=== PATIENT | male | born 1955 | race Caucasian/White ===

== ENCOUNTER → 2023-05-09 07:25 | Outpatient (REF) | payer MEDICARE, BC, SELFPAY | LOC: HWRAD 07:25 | PROVIDERS: ATTENDING PHYSICIAN Physician Assistant | DX: Z87.891 Personal history of nicotine dependence (principal) | CPT/HCPCS: 71271 ==

== ENCOUNTER 2024-05-05 22:05 | Inpatient (IN) | payer MEDICARE, BC, SELFPAY ==
[2024-05-05] VITALS (14 sets, daily range): BP systolic 108–146; BP diastolic 69–92; BMI 37.9
--- NOTE | 2024-05-05 15:44 | ED.GENMED ---
ED Provider Triage
<Keely Mcgee NEWS SPECIALIST - Last Filed: 05/05/24 15:49>
-
Patient seen by provider in Triage?: Seen in Triage
Attestation: A medical screening examination has been initiated by a qualified medical provider. Based on the assessment performed at this time, it has been determined that an emergent medical condition may exist and the patient has been informed
that further medical evaluation and possible additional diagnostic testing may be needed.
HPI: 69-year-old male with history of BPH, on Flomax and finasteride, has been feeling nauseous, short of breath for about a week and a half, he thought he had the flu or COVID, went to his PCP today and he had an EKG showing new onset of atrial
fibs. Feels 'sore' in his chest that is worse when he lays down for the past week
Heart rate 80-120 in triage. Stable
GENERAL: Alert , in no apparent distress
EYE: No visual abnormalities.
NECK: Trachea midline
ENT: No visible abnormalities.
LUNGS: No acute respiratory distress
NEUROLOGICAL: Alert and oriented
SKIN: Skin intact. No visible changes.
MUSCULOSKELETAL: Moving extremities normally
PSYCH: Normal and appropriate interaction.
This is a medical evaluation conducted in person to initiate diagnostic evaluation and provide initial therapeutics. Please see further documentation by the treating clinician.
History of Present Illness
<Keely Mcgee NEWS SPECIALIST - Last Filed: 05/05/24 15:49>
General
Chief Complaint: Heart Rate Problem
Time Seen by Provider: 05/05/24 16:35
<Allie Simons PA-C - Last Filed: 05/05/24 22:23>
General
Source: patient
Exam Limitations: none
Nursing documentation reviewed up to this point in time: agreed with
History of Present Illness
History of Present Illness:
69 y/o M with h/o BPH,
1.5 weeks of generalized fatigue, nauesa, chest discomfort and developed sob
feels some pain with breathign
no fever/chills
suspected it was the flu
ewn tto pcp today and sent in for eval, new onset afib
no history of cardiac disease
former smoker
no vomiting
no abdominal pain
some mild swellign in the legs
Past History
<Keely Mcgee, NEWS SPECIALIST - Last Filed: 05/05/24 15:49>
Past History
ED Past Medical History: None
ED Past Surgical History: None
Review of Systems
<Allie Simons PA-C - Last Filed: 05/05/24 22:23>
Review of Systems
Allergies reviewed?: Yes
All Other Systems: Not applicable
Phy Exam
<Allie Simons PA-C - Last Filed: 05/05/24 22:23>
Physical Exam
Physical Exam:
GENERAL: Alert , tachypneic
EYE: pupils equal and reactive
NECK: Supple
ENT: o/p clr, mmm.
CARDIAC: A-fib with RVR, irregularly irregular, mild edema in his legs
LUNGS: Diminished, mildly tachypneic, dyspneic on conversation, no wheezes
ABDOMEN: Soft, obese without focal tenderness, no r/g, no cvat, normal bowel sounds
NEUROLOGICAL: Alert and oriented, no focal neuro deficits
SKIN: Warm and dry, skin intact.
MUSCULOSKELETAL: Mild edema, well perfused. neg feliz's sign
PSYCH: Normal and appropriate interaction.
Course
<Keely Mcgee, NEWS SPECIALIST - Last Filed: 05/05/24 15:49>
Orders/Labs/Results
Orders:
Orders
05/05/24 15:38
EKG [Electrocardiogram (*1)] Urgent
Reason for Study: Chest Pain
EKG- Treatment ONCE
05/05/24 15:47
CR Chest - 2 Views Urgent
Comment:
Reason For Exam: Shortness of breath, new onset A-fib
05/05/24 16:04
Complete Blood Count/With Diff Urgent
Comprehensive Metabolic Panel Urgent
Lipase Urgent
Comment: ADD ON
NT-proBNP Urgent
Comment: ADD ON
TSH Urgent
Troponin I Urgent
05/05/24 16:41
Add On- LAB Urgent
Tests Added?: bnp
05/05/24 17:04
CT Chest PE Study Urgent
Comment:
Reason For Exam: new onset afib, sob
05/05/24 17:38
Azithromycin 500 mg/250 ml [Zithromax Infusion] 500 mg in 250 ml IV NOW
CefTRIAXone [Rocephin] 2,000 mg IV NOW STA
05/05/24 18:25
Lactic Acid Urgent
05/05/24 19:22
Ondansetron Injectable [Zofran] 4 mg .ROUTE .STK-MED ONE
05/05/24 19:25
Ondansetron Injectable [Zofran] 4 mg IV NOW STA
05/05/24 19:34
Furosemide [Lasix] 40 mg IV ONCE ONE
05/05/24 19:45
Diltiazem 125 mg/125 ml Nss [Cardizem] 125 mg in 125 ml IV PER PROTOCOL
Initial dose in mg/hr, then titrate:: 5
Titrate to keep:: Heart rate 80-100 bpm
Titrate by mg/hr:: 5 mg/hr
Frequency of titrations (minutes):: 15
Maximum dose in mg/hr:: 15
05/05/24 20:53
COVID-19 Antigen Urgent
Source: Nasal Swab
Influenza A+B Rapid Molecular Urgent
ELVIN Source: Nasal Swab
Specimen Description:
05/05/24 21:38
Admit/Transfer Patient As Directed
Co-Sign Provider:
Level of Care: Inpatient admission
Assign to:: IMU- Intermediate Care
Physician / Group: charu hurley
Diagnosis: new onnset charles, intract nausea leuko concern pancreatitis
Reason for Hospitalization: new onnset charles, intract nausea leuko concern pancreatitis
Expected length of stay greater than two midnights?: Yes
ELOS- Estimated Length of Stay in days: 4
I certify the patient meets the requirements for IP care: Yes
Code Status As Directed
Resuscitation Status: Full Code
05/05/24 21:54
PRN Pain Medication Management As Directed
May give lesser potent ordered pain med per pt: Yes
preference::
Protocol:: Medication orders for pain may be administered in a
manner that supports deferring to patient preference
when the pt is:
- Requesting an ordered lesser potent pain medication.
Least to most potent pain medications are defined
as: acetaminophen < NSAID < tramadol < opioids
(morphine, oxycodone, hydromorphone).
- Requesting a lesser dose of the same medication IF
ORDERED.
- Requesting a less intrusive route of administration
if both routes are prescribed by the provider (PO <
IV).
Abnormal Lab Results
05/05/24
16:04
WBC 19.6 H 10^3/uL
(4.8-10.8)
MCH 31.3 H pg
(27.0-31.0)
Abs Immat Gran (auto) 0.4 H 10^3/uL
(0-0.05)
Absolute Neuts (auto) 15.4 H 10^3/uL
(1.4-6.5)
Absolute Monos (auto) 1.6 H 10^3/uL
(0.1-0.6)
Immature Gran % 2.1 H %
(0-0.5)
Neutrophils % 78.5 H %
(42.2-75.2)
Lymphocytes % 9.6 L %
(20.5-51.1)
Chloride 96 L mmol/L
(98-107)
BUN 25 H mg/dl
(9-20)
Glucose 133 H mg/dl
(70-99)
05/05/24 16:04
05/05/24 16:04
Vital Signs
Initial and Last Documented VS:
Initial Vital Signs
Temp Pulse Resp BP Pulse Ox
37.1 C 120 16 117/86 95
05/05/24 15:45 05/05/24 15:45 05/05/24 15:45 05/05/24 15:45 05/05/24 15:45
Last Documented Vital Signs
Temp Pulse Resp BP Pulse Ox
37.1 C 126 20 130/78 95
05/05/24 15:45 05/05/24 21:15 05/05/24 21:15 05/05/24 20:30 05/05/24 21:00
<Allie Simons PA-C - Last Filed: 05/05/24 22:23>
Orders/Labs/Results
Orders:
Orders
05/05/24 15:38
EKG [Electrocardiogram (*1)] Urgent
Reason for Study: Chest Pain
EKG- Treatment ONCE
05/05/24 15:47
CR Chest - 2 Views Urgent
Comment:
Reason For Exam: Shortness of breath, new onset A-fib
05/05/24 16:04
Complete Blood Count/With Diff Urgent
Comprehensive Metabolic Panel Urgent
Lipase Urgent
Comment: ADD ON
NT-proBNP Urgent
Comment: ADD ON
TSH Urgent
Troponin I Urgent
05/05/24 16:41
Add On- LAB Urgent
Tests Added?: bnp
05/05/24 17:04
CT Chest PE Study Urgent
Comment:
Reason For Exam: new onset afib, sob
05/05/24 17:38
Azithromycin 500 mg/250 ml [Zithromax Infusion] 500 mg in 250 ml IV NOW
CefTRIAXone [Rocephin] 2,000 mg IV NOW STA
05/05/24 18:25
Lactic Acid Urgent
05/05/24 19:22
Ondansetron Injectable [Zofran] 4 mg .ROUTE .STK-MED ONE
05/05/24 19:25
Ondansetron Injectable [Zofran] 4 mg IV NOW STA
05/05/24 19:34
Furosemide [Lasix] 40 mg IV ONCE ONE
05/05/24 19:45
Diltiazem 125 mg/125 ml Nss [Cardizem] 125 mg in 125 ml IV PER PROTOCOL
Initial dose in mg/hr, then titrate:: 5
Titrate to keep:: Heart rate 80-100 bpm
Titrate by mg/hr:: 5 mg/hr
Frequency of titrations (minutes):: 15
Maximum dose in mg/hr:: 15
05/05/24 20:53
COVID-19 Antigen Urgent
Source: Nasal Swab
Influenza A+B Rapid Molecular Urgent
ELVIN Source: Nasal Swab
Specimen Description:
05/05/24 21:38
Admit/Transfer Patient As Directed
Co-Sign Provider:
Level of Care: Inpatient admission
Assign to:: IMU- Intermediate Care
Physician / Group: charu hurley
Diagnosis: new onnset charles, intract nausea leuko concern pancreatitis
Reason for Hospitalization: new onnset charles, intract nausea leuko concern pancreatitis
Expected length of stay greater than two midnights?: Yes
ELOS- Estimated Length of Stay in days: 4
I certify the patient meets the requirements for IP care: Yes
Code Status As Directed
Resuscitation Status: Full Code
05/05/24 21:54
PRN Pain Medication Management As Directed
May give lesser potent ordered pain med per pt: Yes
preference::
Protocol:: Medication orders for pain may be administered in a
manner that supports deferring to patient preference
when the pt is:
- Requesting an ordered lesser potent pain medication.
Least to most potent pain medications are defined
as: acetaminophen < NSAID < tramadol < opioids
(morphine, oxycodone, hydromorphone).
- Requesting a lesser dose of the same medication IF
ORDERED.
- Requesting a less intrusive route of administration
if both routes are prescribed by the provider (PO <
IV).
Abnormal Lab Results
05/05/24
16:04
WBC 19.6 H 10^3/uL
(4.8-10.8)
MCH 31.3 H pg
(27.0-31.0)
Abs Immat Gran (auto) 0.4 H 10^3/uL
(0-0.05)
Absolute Neuts (auto) 15.4 H 10^3/uL
(1.4-6.5)
Absolute Monos (auto) 1.6 H 10^3/uL
(0.1-0.6)
Immature Gran % 2.1 H %
(0-0.5)
Neutrophils % 78.5 H %
(42.2-75.2)
Lymphocytes % 9.6 L %
(20.5-51.1)
Chloride 96 L mmol/L
(98-107)
BUN 25 H mg/dl
(9-20)
Glucose 133 H mg/dl
(70-99)
05/05/24 16:04
05/05/24 16:04
Vital Signs
Initial and Last Documented VS:
Initial Vital Signs
Temp Pulse Resp BP Pulse Ox
37.1 C 120 16 117/86 95
05/05/24 15:45 05/05/24 15:45 05/05/24 15:45 05/05/24 15:45 05/05/24 15:45
Last Documented Vital Signs
Temp Pulse Resp BP Pulse Ox
37.1 C 126 20 130/78 95
05/05/24 15:45 05/05/24 21:15 05/05/24 21:15 05/05/24 20:30 05/05/24 21:00
<Jack Bravo, DO - Last Filed: 05/05/24 18:06>
Orders/Labs/Results
Orders:
Orders
05/05/24 15:38
EKG [Electrocardiogram (*1)] Urgent
Reason for Study: Chest Pain
EKG- Treatment ONCE
05/05/24 15:47
CR Chest - 2 Views Urgent
Comment:
Reason For Exam: Shortness of breath, new onset A-fib
05/05/24 16:04
Complete Blood Count/With Diff Urgent
Comprehensive Metabolic Panel Urgent
Lipase Urgent
Comment: ADD ON
NT-proBNP Urgent
Comment: ADD ON
TSH Urgent
Troponin I Urgent
05/05/24 16:41
Add On- LAB Urgent
Tests Added?: bnp
05/05/24 17:04
CT Chest PE Study Urgent
Comment:
Reason For Exam: new onset afib, sob
05/05/24 17:38
Azithromycin 500 mg/250 ml [Zithromax Infusion] 500 mg in 250 ml IV NOW
CefTRIAXone [Rocephin] 2,000 mg IV NOW STA
05/05/24 18:25
Lactic Acid Urgent
05/05/24 19:22
Ondansetron Injectable [Zofran] 4 mg .ROUTE .STK-MED ONE
05/05/24 19:25
Ondansetron Injectable [Zofran] 4 mg IV NOW STA
05/05/24 19:34
Furosemide [Lasix] 40 mg IV ONCE ONE
05/05/24 19:45
Diltiazem 125 mg/125 ml Nss [Cardizem] 125 mg in 125 ml IV PER PROTOCOL
Initial dose in mg/hr, then titrate:: 5
Titrate to keep:: Heart rate 80-100 bpm
Titrate by mg/hr:: 5 mg/hr
Frequency of titrations (minutes):: 15
Maximum dose in mg/hr:: 15
05/05/24 20:53
COVID-19 Antigen Urgent
Source: Nasal Swab
Influenza A+B Rapid Molecular Urgent
ELVIN Source: Nasal Swab
Specimen Description:
05/05/24 21:38
Admit/Transfer Patient As Directed
Co-Sign Provider:
Level of Care: Inpatient admission
Assign to:: IMU- Intermediate Care
Physician / Group: charu hurley
Diagnosis: new onnset charles, intract nausea leuko concern pancreatitis
Reason for Hospitalization: new onnset charles, intract nausea leuko concern pancreatitis
Expected length of stay greater than two midnights?: Yes
ELOS- Estimated Length of Stay in days: 4
I certify the patient meets the requirements for IP care: Yes
Code Status As Directed
Resuscitation Status: Full Code
05/05/24 21:54
PRN Pain Medication Management As Directed
May give lesser potent ordered pain med per pt: Yes
preference::
Protocol:: Medication orders for pain may be administered in a
manner that supports deferring to patient preference
when the pt is:
- Requesting an ordered lesser potent pain medication.
Least to most potent pain medications are defined
as: acetaminophen < NSAID < tramadol < opioids
(morphine, oxycodone, hydromorphone).
- Requesting a lesser dose of the same medication IF
ORDERED.
- Requesting a less intrusive route of administration
if both routes are prescribed by the provider (PO <
IV).
Abnormal Lab Results
05/05/24
16:04
WBC 19.6 H 10^3/uL
(4.8-10.8)
MCH 31.3 H pg
(27.0-31.0)
Abs Immat Gran (auto) 0.4 H 10^3/uL
(0-0.05)
Absolute Neuts (auto) 15.4 H 10^3/uL
(1.4-6.5)
Absolute Monos (auto) 1.6 H 10^3/uL
(0.1-0.6)
Immature Gran % 2.1 H %
(0-0.5)
Neutrophils % 78.5 H %
(42.2-75.2)
Lymphocytes % 9.6 L %
(20.5-51.1)
Chloride 96 L mmol/L
(98-107)
BUN 25 H mg/dl
(9-20)
Glucose 133 H mg/dl
(70-99)
05/05/24 16:04
05/05/24 16:04
Vital Signs
Initial and Last Documented VS:
Initial Vital Signs
Temp Pulse Resp BP Pulse Ox
37.1 C 120 16 117/86 95
05/05/24 15:45 05/05/24 15:45 05/05/24 15:45 05/05/24 15:45 05/05/24 15:45
Last Documented Vital Signs
Temp Pulse Resp BP Pulse Ox
37.1 C 126 20 130/78 95
05/05/24 15:45 05/05/24 21:15 05/05/24 21:15 05/05/24 20:30 05/05/24 21:00
<Allie Simons PA-C - Last Filed: 05/05/24 22:23>
MDM/Problems Addressed
Differential Diagnosis Includes:
sepsis pneumonia, flu, afib with rvr, chf, pe
MDM/Problems Addressed:
69 y/o M 1.5 weeks nausea, chest discomfort, shortness of breath developed; felt fatigued like he had the flu
went to PCP and sent here for afib with RVR 110s;
no history
tachypneic, pulse ox 93%, trop neg; he has some LE edema, i thought maybe CHF; his bnp was elevated but CT showed no CHF; has probable pneumonia, wbc 20k;
rocephin/azithro
ordered diltiazem and lasix for his afib and dysphnea
<Allie Simons PA-C - Last Filed: 05/05/24 22:23>
*Critical Care Note
Total Time (30-74mins, 75-104mins- exclusive of procedures): Not Applicable
ED Attending Note
<Keely Mcgee NEWS SPECIALIST - Last Filed: 05/05/24 15:49>
-
Portions of this chart may have been created with voice recognition software.� Occasional wrong word or��sound alike� substitutions may have occurred due to the inherent limitations of voice recognition software.
<Jack Bravo DO - Last Filed: 05/05/24 18:06>
ED Attending Note
Patient seen and examined by attending physician: Yes
ED Attending Note:
I reviewed and agree with history treatment plan by Allie Simons PA-C. My exam revealed 69-year-old male with mild tachypnea, tachycardia and irregular rhythm. Suspect pneumonia versus heart failure. Will rule out PE with CT.
Discharge Plan
Departure
Patient Disposition: Admit
Date of Disposition: 05/05/24
Time of Disposition: 19:27
Admit to: Telemetry
Presentation/result/management discussed w/ accepting MD/DO: Hospitalist
Condition: Fair
Covid-19: Not Applicable
Discharge Problem:
Atrial fibrillation, new onset, Pneumonia
Interventions
Interventions:
*Risk Screen - Suicide Last Done: 05/05/24 16:33
*General Assessment Last Done: 05/05/24 16:33
*Neglect/Abuse Screening Last Done: 05/05/24 16:33
ED- Fall Risk Assessment Last Done: 05/05/24 16:33
*ED COVID-19 Vaccine History Last Done: 05/05/24 16:33
ED- Cardiac Assessment Last Done: 05/05/24 19:15
ED- Pulmonary Assessment Last Done: 05/05/24 19:15
[2024-05-05 16:16] LABS: % Basophils 0.4 % (0-2); % Eosinophils 1.1 % (0-6); % Immature Granulocytes 2.1 % (0-0.5); % Lymphocytes 9.6 % (20.5-51.1); % Monocytes 8.3 % (1.7-9.3); % Neutrophils 78.5 % (42.2-75.2); Absolute Basophils 0.1 10^3/uL (0-0.2); Absolute Eosinophils 0.2 10^3/uL (0-0.7); Absolute Immature Granulocytes 0.4 10^3/uL (0-0.05); Absolute Lymphocytes 1.9 10^3/uL (1.2-3.4); Absolute Monocytes 1.6 10^3/uL (0.1-0.6); Absolute Neutrophils 15.4 10^3/uL (1.4-6.5); Hematocrit 43.6 % (39.0-52.0); Hemoglobin 15.1 g/dL (13.0-18.0); Mean Corp Hgb Conc. 34.6 g/dL (33.0-37.0); Mean Corpuscular Hgb 31.3 pg (27.0-31.0); Mean Corpuscular Volume 90.5 fL (80.0-94.0); Nucleated Red Blood Cells % 0 % (-); Platelet Count 269 10^3/uL (130-400); Red Blood Cell Count 4.82 10^6/uL (4.70-6.10); Red Cell Dist. Width 13.9 % (11.5-14.5); White Blood Cell Count 19.6 10^3/uL (4.8-10.8)
[2024-05-05 16:32] LABS: ALT (SGPT) 50 U/L (0-50); AST (SGOT) 32 U/L (17-59); Albumin 3.8 g/dl (3.5-5.0); Alkaline Phosphatase 54 U/L (38-126); Blood Urea Nitrogen 25 mg/dl (9-20); Calcium 10.2 mg/dl (8.4-10.2); Carbon Dioxide 28 mmol/L (22-30); Chloride 96 mmol/L (98-107); Glucose 133 mg/dl (70-99); Potassium 4.4 mmol/L (3.5-5.1); Sodium 135 mmol/L (135-145); Total Bilirubin 0.9 mg/dl (0.2-1.3); Total Protein 6.6 g/dl (6.3-8.2); eGFR > 60.00
--- NOTE | 2024-05-05 16:45 | EDRN ---
Pt states he arrives for intermittent nausea over past couple of weeks w/ intermittent chest pain and SOB. Pt has not had A Fib in the past and denies being on any blood thinners.
[2024-05-05 16:49] LABS: Troponin I 0.015 ng/ml
--- NOTE | 2024-05-05 17:01 | EDRN ---
Fadi RAPHAEL in room w/ pt at this time.
[2024-05-05 17:03] LABS: NT-proBNP 1450 pg/ml; TSH 1.24 uIU/ml (0.47-4.68)
--- NOTE | 2024-05-05 17:05 | EDRN ---
Pt having increased work of breathing per Fadi RAPHAEL and placed on oxygen at 2lpm via NC at this time and also informed this RN going to get a chest CT.
--- NOTE | 2024-05-05 17:56 | EDRN ---
Dr. Bravo in room w/ pt at this time.
[2024-05-05 18:42] LABS: Lactic Acid 1.2 mmol/L (0.7-2.0)
[2024-05-05] MEDS: ROCEPHIN 2000 MG IV (19:18)
[2024-05-05] MEDS: ZITHROMAX INFUSION 250 IV (19:19)
[2024-05-05] MEDS: ZOFRAN 4 MG IV (19:26)
--- NOTE | 2024-05-05 19:26 | EDRN ---
Pt at 19:15 started w/ nausea then dry heaves. This RN texted Fadi Simons PA though Dr. Bravo came in and gave verbal order for Zofran 4 mg IV which has been administered. During nausea episode HR increased to 160-170.
--- NOTE | 2024-05-05 19:33 | EDRN ---
POX decreased to 77%on RA and pt placed on oxygen at 4lpm via NC and now 92-94% on that. Fadi Simons PA in to see pt and said pt can have ice chips at this time but nothing else PO.
[2024-05-05] MEDS: LASIX 40 MG IV (19:51)
[2024-05-05] MEDS: CARDIZEM 125 IV (19:52)
--- NOTE | 2024-05-05 21:13 | HPS.HSE ---
Family Physician
-
Family Physician: Shannon Giraldo
Chief Complaint
-
Intractable nausea since 119 post Zepbound, sore throat, shortness of breath, fatigue x 3 days
History of Present Illness
69-year-old male complaining of nausea since 04/26 after taking 2.5 mg of Zepbound for obesity. He reports extreme nausea on and off that has been persistent with pain in his left and upper right abdomen but no vomiting. He states he has had sips
of water and has only been able to keep down a saltine and a few sips of tomato soup on 05/03. He is also complained of shortness of breath, sorethoat, fatigue and sore throat for the past 3 to 4 days. He reports he went to his PCP today had EKG
showing new onset A-fib he states that they did a COVID and flu swab that was negative there. He still complains of persistent nausea with left and right upper abdominal pain. He has past medical history of BPH, obesity
Medical History
Past Medical History
Past Medical History: Reports Other
Additional Past Medical History:
BPH
Obesity
Past Surgical History: Reports None
Social History
Tobacco: Non-smoker
Alcohol: None
Drug: None
Personal:
Living: With Family
Employment: Retired
Family History
Family History: Other (Father CABG x 3 vessel, DM2, age 87, mother alive healthy no medical problems, sister alive history bladder cancer, paternal grandmother age 70 [place])
Allergies / Home Medications
Allergies reflects when Allergies were last updated in [facility].
Home Medications with original date entered in [facility]
Allergy/Medication List:
Allergies
Allergy/AdvReac Type Severity Reaction Status Date / Time
No Known Allergies Allergy Unverified 12/22/21 11:53
Home Medications
finasteride 5 mg tablet 5 mg PO QPM 05/05/24
tamsulosin 0.4 mg capsule (Flomax) 0.8 mg PO QPM 05/05/24
Review of Systems
-
History Source: Patient
A 12 point ROS was completed and negative except as noted: Yes
Constitutional: Denies Fever, Fatigue or Chills
EENT: Reports Sore Throat; Denies Runny Nose
Respiratory: Reports Trouble Breathing; Denies Cough
Cardiac: Denies Chest Pain, Diaphoresis or Palpitations
Abdomen/GI: Reports Abdominal Pain (Right and left upper quadrant left greater than right) and Nausea (Persistent since 04/26); Denies Vomiting, Diarrhea, Constipated, Bloody Stools or Black Stools
: Denies Dysuria, Frequency, Flank Pain, Incontinence or Difficulty Voiding
Musculoskeletal: Denies Joint Pain or Edema
Skin: Denies Itching or Rash
Neurological: Denies Dizzy, Headache or Weakness
Endocrine: Reports No Symptoms
Hematologic/Lymphatic: Reports No Symptoms
Psych: Reports Calm
Physical Exam
Vital Signs
Vital Signs
Temp Pulse Resp BP Pulse Ox
98.7 F 145 16 144/69 97
05/05/24 15:45 05/05/24 20:15 05/05/24 20:00 05/05/24 20:15 05/05/24 20:15
Physical Exam
General: Conversant and Obese; No Pain, Fever or Chills
HEENT: NormoCephalic, Anicteric, PERRLA, [place] Conjunctivae and No Ptosis
Respiratory: Clear; No Wheezes, Rales or Rhonchi
Cardiac: S1/S2 and Regular Rhythm; No Murmur, Rub, Gallop or Peripheral Edema
Breast: Deferred by me
GI: Soft, Non Distended, Normal Bowel Sounds, Tender (Right and left upper quadrant) and No Hepatosplenomegaly
Rectal: Deferred by Provider
Genito-urinary: Deferred by me
Musculoskeletal: No Clubbing, No Cyanosis and No Edema
Skin: Warm and Dry; No Rash or Jaundice
Neuro: AO x 3, No Motor Deficits, No Sensory Deficits and DTR's Intact & Symmetrical; No Nonfocal/grossly intact, Slurred Speech, Facial Droop, Tremors or Sedated
Psych: Calm
Laboratory Results
-
05/05/24 16:04
05/05/24 16:04
Laboratory Results
Lactic Acid 1.2 mmol/L (0.7-2.0) 05/05/24 18:25
Total Bilirubin 0.9 mg/dl (0.2-1.3) 05/05/24 16:04
AST 32 U/L (17-59) 05/05/24 16:04
ALT 50 U/L (0-50) 05/05/24 16:04
Alkaline Phosphatase 54 U/L (38-126) 05/05/24 16:04
Troponin I 0.015 ng/ml 05/05/24 16:04
Data Reviewed
-
CT Scan: Report Reviewed by me
Medical Tests (Nuc Med, Echo, EKG etc): Discussed with Nurse
Impression/Plan
-
Impression/plan:
Admit to IMU
#New onset A-fib
-Consult [facility] cardiology
-IV Cardizem drip titrate
-2D echo
-TSH with free T4 reflex
-Hold on any anticoagulation at current time ChadVasc score 1
CT PE study:
No evidence for pulmonary embolism.
Minimal posterior left pleural effusion.
Parenchymal opacity within the left lower lung, mainly inferiorly, morphology suggestive of atelectasis.
Linear and wedge-shaped densities within the anteromedial left upper lobe and lingula, appearance highly suggestive of atelectasis.
Suggestion of bronchial wall thickening and narrowing of the diameter of the bronchi within both lower lobes, left greater right, findings
suggestive of bronchitis.
Fatty infiltration of the liver.
#Acute leukocytosis with CT showing concern for opacity left lower lung however very low suspicion for any pneumonia given no cough, afebrile, hypotensive
Patient given Zithromax, Rocephin in ER will hold further dosing
# Leukocytosis/abdominal pain post Zepbound concern for Acute pancreatitis
#Fatty liver by CT
-IV Zofran as needed
-Normal LFTs
-Check COVID, flu
-Check lipase
-IV NSS x 1 liter
-N.p.o. patient reports his only tolerated minimal liquids since 04/26/2024
-IV Zofran
-Will check CT abdomen pelvis in a.m. with IV contrast only concern for Pancreatitis
#BPH
-Continue Flomax 0.8 mg every afternoon, finasteride 5 mg every afternoon
DVT prophylaxis
Subcu heparin
Full code
--- NOTE | 2024-05-05 21:54 | W.PN.UPDATE ---
Addendum entered and electronically signed by Ernst Ochoa MD 05/05/24 21:56:
This is an addendum to the H&P written by Concepcion Ng on 05/05/2024. Patient seen and examined independently with [employer].
Original Note:
Update Note
Progress Note Update
69-year-old male past medical history of BPH, obesity, presenting with nausea, vomiting while shortness of breath, fatigue, sore throat after taking Zepbound on 04/26. Saw primary and was found to be in A-fib with RVR. He also had some pain across
his chest.
CT chest shows no evidence of pulm embolism. There is minimal posterior left pleural effusion. There is suggestion of bronchial wall thickening and narrowing of the diameter of the bronchi in both lower lobes suggestive of bronchitis.
Cardiac BNP of 1450. Labs show leukocytosis.
EKG shows patient in A-fib with RVR.
COVID and influenza pending.
Patient with likely viral URI/bronchitis. Abdominal symptoms could be residual symptoms from Zepbound. No alma rosa abdominal pain but complains of bloating/nausea. Check lipase. Check CT abdomen with IV contrast tomorrow..
Cardizem drip for A-fib. Check TSH. Check echocardiogram. Cardiology consulted.
Patient was given IV antibiotics with ceftriaxone/azithromycin. Hold off further antibiotics for now. Patient given IV Lasix but not in heart failure. Hold off further Lasix. Gentle IV fluids. N.p.o. with ice chips.
[2024-05-05 22:25] LABS: Lipase 146 U/L (23-300)
[2024-05-05 23:21] LABS: COVID-19 Antigen Negative (Negative)
[2024-05-06] VITALS (27 sets, daily range): BP systolic 88–131; BP diastolic 45–93; PULSE 97–102; O2SAT 94–95; BMI 37.9; BMI 35.9
[2024-05-06] MEDS: NSS 1000 IV (02:03)
[2024-05-06] MEDS: CARDIZEM 125 IV (02:05)
[2024-05-06 05:54] LABS: % Basophils 0.4 % (0-2); % Eosinophils 1.8 % (0-6); % Immature Granulocytes 2.7 % (0-0.5); % Lymphocytes 14.8 % (20.5-51.1); % Monocytes 10.3 % (1.7-9.3); Absolute Basophils 0.1 10^3/uL (0-0.2); Absolute Eosinophils 0.3 10^3/uL (0-0.7); Absolute Immature Granulocytes 0.4 10^3/uL (0-0.05); Absolute Lymphocytes 2.4 10^3/uL (1.2-3.4); Absolute Monocytes 1.7 10^3/uL (0.1-0.6); Absolute Neutrophils 11.2 10^3/uL (1.4-6.5); Hematocrit 41.6 % (39.0-52.0); Hemoglobin 13.7 g/dL (13.0-18.0); Mean Corp Hgb Conc. 32.9 g/dL (33.0-37.0); Mean Corpuscular Hgb 30.9 pg (27.0-31.0); Mean Corpuscular Volume 93.9 fL (80.0-94.0); Mean Platelet Volume 10.2 fL (7.4-10.4); Nucleated Red Blood Cells % 0 % (-); Platelet Count 243 10^3/uL (130-400); Red Blood Cell Count 4.43 10^6/uL (4.70-6.10); Red Cell Dist. Width 14.1 % (11.5-14.5); White Blood Cell Count 16.1 10^3/uL (4.8-10.8)
[2024-05-06 06:33] LABS: ALT (SGPT) 40 U/L (0-50); AST (SGOT) 23 U/L (17-59); Albumin 3.3 g/dl (3.5-5.0); Alkaline Phosphatase 54 U/L (38-126); Blood Urea Nitrogen 24 mg/dl (9-20); Calcium 9.1 mg/dl (8.4-10.2); Carbon Dioxide 34 mmol/L (22-30); Chloride 95 mmol/L (98-107); Estimated Creatinine Clearance 96 ml/min; Glucose 101 mg/dl (70-99); HDL Cholesterol 33 mg/dl; LDL Cholesterol, Calculated 63 mg/dl; Potassium 4.2 mmol/L (3.5-5.1); Sodium 136 mmol/L (135-145); Total Bilirubin 0.6 mg/dl (0.2-1.3); Total Cholesterol 123 mg/dl (50-199); Total Protein 5.9 g/dl (6.3-8.2); Triglyceride 135 mg/dl (10-149); Very Low Density Lipoprotein 27 mg/dl (0-30); eGFR > 60.00
[2024-05-06] MEDS: HEPARIN 5000 UNITS SC (07:36)
--- NOTE | 2024-05-06 14:17 | CON.CAR ---
Addendum entered and electronically signed by Crzu Willis MD 05/06/24 14:49:
I saw and examined the patient.
The Automatic Washer Mechanic's note was reviewed and I agree with the note.
Comment: Briefly, 69-year-old man who has been experiencing several weeks of dyspnea on exertion found to be in atrial fibrillation in the primary care office which is a new diagnosis. He was referred to [place] emergency department where he was
found to be in atrial fibrillation with rapid ventricular response.
Continue diltiazem drip for rate control
Add p.o. metoprolol and wean diltiazem as able
Recommend starting oral anticoagulation and continuing on discharge, plan to start Eliquis 5 mg twice daily
If he remains in atrial fibrillation tomorrow tentatively plan for ZIYAD/direct-current cardioversion
Reporting dyspnea on exertion and orthopnea for the last several weeks
Would continue IV Lasix 40 mg twice daily for now
Suspect that we can transition to oral Lasix tomorrow, possibly 20 mg daily for maintenance as he is diuretic na�ve
Original Note:
Consultation
Consultation Request
Date/Time Consultation Requested: 05/06/24
Date/Time Consultation Performed: 05/06/24
Requesting Provider: Dr. Ricci
Performing Provider: Dr. Willis
Reason for Consultation: MARX, new Afib
Medical History
-
History of Present Illness:
Patient came to [facility] yesterday form his PCPs office with a new diagnosis of A-fib with RVR and cardiology is now consulted. Patient was seeing his PCP yesterday because of nausea and MARX that seem to have started around the time that he started
taking Zepbound as a new weight loss medication about 1 to 2 weeks ago. Patient has been extremely nauseous and has had a dramatic decrease in p.o. intake. He also noticed MARX, but denies any orthopnea, edema or resting SOB. He performed a COVID
test at home before he saw his PCP yesterday that was negative. In the PCPs office he was noted to be in A-fib with RVR and no known history of A-fib. Patient was sent to ER where he had a CT of the chest that showed no evidence of PE. There
was a minimal posterior left pleural effusion and no suggestion of pulmonary edema. His proBNP was 1450. Patient was given Lasix 40 mg IV x 1 and does not feel any symptomatic improvement. Patient complains of ongoing sore throat and a repeat
COVID swab was negative and influenza screening was negative as well. He says throat pain is worse with swallowing. Denies chest pain or palpitations.
PMH:
BPH
Obese, BMI 37.9
Past Medical History
Past Medical History: Other (in HPI)
Past Surgical History: Orthopedic
Social History
Tobacco: Former Smoker
Alcohol: None
Drug: None
Family History
Family History: CAD (father with CABG)
Allergies / Home Medications
Allergy/AdvReac Type Severity Reaction Status Date / Time
No Known Allergies Allergy Unverified 12/22/21 11:53
�Medication �Instructions �Recorded �Confirmed �Type
finasteride 5 mg tablet 5 mg PO QPM 05/05/24 05/05/24 History
tamsulosin 0.4 mg capsule (Flomax) 0.8 mg PO QPM 05/05/24 05/05/24 History
Review of Systems
-
History Source: Patient
All other systems: Negative unless noted
Physical Exam
Vital Signs
Temp Pulse Resp BP Pulse Ox
98.3 F 93 21 107/65 95
05/06/24 11:41 05/06/24 12:18 05/06/24 12:18 05/06/24 12:18 05/06/24 12:18
GEN: NAD. AAOx3
HEENT: EOMI, MMM
LUNGS: RA. CTA B/L, no wheeze
CV: Afib on tele. Irreg irreg, S1/S2, no murmur
ABD: soft, BS+, NT/ND
EXT: No clubbing, cyanosis, lesions or edema B/L
NEURO: Gross non-focal
SKIN: Warm, dry and pink. No rash
Lab Results
05/06/24 05:26
05/06/24 05:26
Troponin I 0.015 ng/ml 05/05/24 16:04
Obe-P-Lpkhewvhucv Pept 1450 pg/ml 05/05/24 16:04
Impression / Plan
-
PCP: Shannon Giraldo
Card: None prior to admission
Impression:
MARX and nausea on admission 05/05/24
Afib with RVR
Newly diagnosed paroxysmal Afib
Possible acute HF unknown EF
BPH
Obese, BMI 37.9
Plan:
-Patient [facility] yesterday form his PCPs office with a new diagnosis of A-fib with RVR and cardiology is now consulted. Patient was seeing his PCP yesterday because of nausea and MARX that seem to have started around the time that he started
taking Zepbound as a new weight loss medication about 1 to 2 weeks ago. Patient has been extremely nauseous and has had a dramatic decrease in p.o. intake. He also noticed MARX, but denies any orthopnea, edema or resting SOB. He performed a COVID
test at home before he saw his PCP yesterday that was negative. In the PCPs office he was noted to be in A-fib with RVR and no known history of A-fib. Patient was sent to ER where he had a CT of the chest that showed no evidence of PE. There
was a minimal posterior left pleural effusion and no suggestion of pulmonary edema. His proBNP was 1450. Patient was given Lasix 40 mg IV x 1 and does not feel any symptomatic improvement. Patient complains of ongoing sore throat and a repeat
COVID swab was negative and influenza screening was negative as well. He says throat pain is worse with swallowing. Denies chest pain or palpitations.
-ECG reviewed by me looks like A-fib with RVR. Telemetry reviewed by me shows A-fib with a heart rate ranging from 85-115.
-Cardizem gtt started overnight running at 5 mg/hr. patient was not taking any rate controlling meds prior to admission.
-Reviewed the pathophysiology of A-fib with patient and then also reviewed treatment options including addition of OAC and rate control versus rhythm control.
-Patient is agreeable to begin Eliquis 5 mg BID (age 69, Cre 1.1, 143 kg). Patient has not previously been on OAC and cannot think of any contraindications for himself.
-Patient is agreeable to an attempt at rhythm control with ZIYAD/CV in the a.m.
-Will add Toprol XL 25 mg daily starting now and work to wean off Cardizem gtt.
-proBNP was moderately elevated at 1450, but no obvious CHF on CT chest and the patient did not experience any symptomatic improvement following Lasix 40 mg IV x 1 in the ER overnight. Would not give additional Lasix doses and at this point will
not consider him acute HF.
[2024-05-06] MEDS: TOPROL XL 25 MG PO (15:01)
--- NOTE | 2024-05-06 16:03 | W.PN.HOSP.TC ---
Today's Communication/Plan
-
Assessment / Plan
Assessment / Plan
Gen-AAOx3, NAD
HEENT-NC, AT, anicteric, clear oral mm
Neck-supple
CV-irregular rhythm, HR around 90, no M
Lungs-clear B/L
Abd-soft, NT, ND
Musculoskeletal-no edema, no deformity
Skin-warm and dry
Neuro-grossly non-focal
Psych-calm, cooperative
Mr. Jenkins is a 69-year-old male with a medical history of enlarged prostate and obesity who presented with nausea and vomiting and shortness of breath. His symptoms began after taking Zepbound on 04/26 for weight loss. He followed up with his
PCP who found that he was in A-fib with RVR and referred him to the ED. EKG in the ED confirmed A-fib with RVR. He was started on Cardizem drip. CT imaging in the ED showed no evidence pulmonary embolism but did show minimal left pleural effusion
and possible bronchitis. He has been admitted for further evaluation and management of new onset A-fib with RVR.
A-fib with RVR:
-New onset A-fib
-Rate now better controlled with diltiazem drip, started on metoprolol succinate 25 mg daily
-Cardiology following, recommend starting oral anticoagulation with Eliquis and continuing on discharge
-Will titrate off of diltiazem drip as able
-If remains in A-fib may require ZIYAD/cardioversion
Dyspnea on exertion:
-Patient reports dyspnea with exertion and orthopnea for the past few weeks prior to admission
-Cardiology recommending continuing IV Lasix 40 mg twice daily for now, likely transition to oral Lasix 20 mg daily tomorrow
Leukocytosis:
-Improving
-No overt signs of infection, may be reactive to rapid A-fib
-Received a dose of antibiotics initially in the ED, will continue to monitor off of antibiotics for now
-If worsening clinical status or leukocytosis does not resolve could treat empirically for community-acquired pneumonia
-Will monitor for now, breathing comfortably and saturating properly on room air
CODE STATUS: Full code
Anticipated Discharge: 24 - 48 hours
Subjective/Interval History
-
Date of Service: May 06, 2024
Patient was seen and examined at bedside this morning. He reports feeling better than when he first came into still feels generally lousy.
Objective Data
-
Labs:
Laboratory Results
05/06/24
05:26
WBC 16.1 H
Hgb 13.7
Hct 41.6
Plt Count 243
Sodium 136
Potassium 4.2
Chloride 95 L
Carbon Dioxide 34 H
BUN 24 H
Creatinine 1.1
Glucose 101 H
Calcium 9.1
Total Bilirubin 0.6
AST 23
ALT 40
Alkaline Phosphatase 54
Vital Signs:
Vital Signs
Temp Pulse Resp BP Pulse Ox
98.3 F 92 21 105/73 95
05/06/24 11:41 05/06/24 15:01 05/06/24 12:18 05/06/24 15:01 05/06/24 12:18
I&O
05/05/24 05/06/24 05/07/24
06:59 06:59 06:59
Intake Total 500 / 500
Output Total 1600 / 1600 650 / 650
Balance -1100 / -1100 -650 / -650
Review of Systems
-
History Source: Patient
Physical Exam
-
General: No Apparent Distress
[2024-05-06] MEDS: LASIX 40 MG IV (16:29)
[2024-05-06] MEDS: FLOMAX 0.8 MG PO (18:23)
[2024-05-06] MEDS: PROSCAR 5 MG PO (18:23)
[2024-05-06] MEDS: ELIQUIS 5 MG PO (19:49)
--- NOTE | 2024-05-06 22:26 | PTCARENOTE ---
Patient transferred to IMU from ED via stretcher. Pt ambulated from the stretcher to the bed with standby assistance. HR up to the 130's during transfer. Received pt on 2.5 mg/hr of cardizem. HR down to 108 while sitting, now 96 while the patient is
lying. Pt denies any abdominal pain or nausea. Pt aware of NPO @ midnight for ZIYAD/CV in AM. Pt oriented to the unit educated on the call zimmer. Call zimmer is within reach.
[2024-05-07] VITALS (17 sets, daily range): BP systolic 99–137; BP diastolic 59–96; BMI 35.9
--- NOTE | 2024-05-07 04:52 | PTCARENOTE ---
Patient AAOx3. A-fib on tele, on 2.5 mg/hr cardizem gtt. HR 98. 2L NC O2 sat 93%. OOB to bathroom with standby assistance. Pt complains of left knee pain because he 'tweaked it' a week ago. Gait is slow and appears to be limping. Abdomen is round
and firm, denies any abdominal pain or nausea. Pt has dentures, oral care done, and dentures soaking overnight. Pt NPO for ZIYAD/CV in AM. Call zimmer is within reach.
[2024-05-07 05:00] LABS: % Basophils 0.4 % (0-2); % Eosinophils 2.1 % (0-6); % Lymphocytes 13.7 % (20.5-51.1); % Monocytes 9.5 % (1.7-9.3); % Neutrophils 72.3 % (42.2-75.2); Absolute Basophils 0.1 10^3/uL (0-0.2); Absolute Eosinophils 0.3 10^3/uL (0-0.7); Absolute Immature Granulocytes 0.3 10^3/uL (0-0.05); Absolute Lymphocytes 2.1 10^3/uL (1.2-3.4); Absolute Monocytes 1.5 10^3/uL (0.1-0.6); Absolute Neutrophils 11.1 10^3/uL (1.4-6.5); Hematocrit 41.2 % (39.0-52.0); Hemoglobin 13.5 g/dL (13.0-18.0); Mean Corp Hgb Conc. 32.8 g/dL (33.0-37.0); Mean Corpuscular Hgb 30.9 pg (27.0-31.0); Mean Corpuscular Volume 94.3 fL (80.0-94.0); Mean Platelet Volume 9.6 fL (7.4-10.4); Nucleated Red Blood Cells % 0 % (-); Platelet Count 212 10^3/uL (130-400); Red Blood Cell Count 4.37 10^6/uL (4.70-6.10); Red Cell Dist. Width 13.7 % (11.5-14.5); White Blood Cell Count 15.4 10^3/uL (4.8-10.8)
[2024-05-07 05:24] LABS: Total Bilirubin 1.2 mg/dl (0.2-1.3)
[2024-05-07 05:25] LABS: ALT (SGPT) 40 U/L (0-50); AST (SGOT) 26 U/L (17-59); Albumin 3.5 g/dl (3.5-5.0); Alkaline Phosphatase 51 U/L (38-126); Blood Urea Nitrogen 27 mg/dl (9-20); Calcium 8.8 mg/dl (8.4-10.2); Chloride 90 mmol/L (98-107); Glucose 108 mg/dl (70-99); Potassium 4.4 mmol/L (3.5-5.1); Sodium 137 mmol/L (135-145)
[2024-05-07 05:28] LABS: Carbon Dioxide 34 mmol/L (22-30); Estimated Creatinine Clearance 94 ml/min; eGFR > 60.00
[2024-05-07] MEDS: CARDIZEM 125 IV (05:42)
--- NOTE | 2024-05-07 06:00 | PTCARENOTE ---
Came into patient room IV pump was shut off, possibly due to battery lose. Due to pump difficulties, switched to a new pump and hung a new bag of cardizem around 0545. Increased cardizem gtt rate to 5mg/hr HR was 115.
[2024-05-07] MEDS: TOPROL XL 25 MG PO (08:30)
[2024-05-07] MEDS: ELIQUIS 5 MG PO ×2 (08:30→19:36)
[2024-05-07] MEDS: LASIX 40 MG IV ×2 (08:31→17:33)
--- NOTE | 2024-05-07 10:03 | PTCARENOTE ---
Assumed care of patient at beginning of this shift from previous RN with cardizem infusing at 10mg/hr. IV site with small hard lump, no blood return. Second IV site flushed well so cardizem changed to that site. Second site then appeared to
infiltrate as well. VAT RN made aware and placed new site. HR currently 96; BP 132/86. Patient remains NPO for ZIYAD/Cardioversion.
--- NOTE | 2024-05-07 12:16 | PTCARENOTE ---
Patient off unit for ZIYAD/Cardioversion.
--- NOTE | 2024-05-07 12:47 | ITS.CL.CARDI ---
Health And Safety Coordinator - Cardioversion
Cardioversion
Procedure Report:
Procedure: ZIYAD-guided electrical cardioversion
Pre-operative diagnosis: Persistent atrial fibrillation
Post-operative diagnosis: Persistent atrial fibrillation
Anesthesia: MAC
Attending Physician: Cruz Willis MD
Procedure Description: The patient was brought to the electrophysiology laboratory in the fasting state. Informed consent was obtained from the patient prior to the start of the procedure. Adherence to anticoagulation was confirmed. Electrodes were
placed on the patient and connected to an external defibrillator. Monitoring of blood pressure, ECG tracings, and pulse oximetry was initiated. The pads were applied to the patient in the anterior and posterior positions. The patient was sedated by
the anesthesiologist. A ZIYAD (reported separately) was performed prior to the cardioversion. No left atrial or left atrial appendage thrombus was seen. After the ZIYAD probe was removed, 200, 360 and subsequent 360 joule biphasic synchronized shocks
were delivered to the patient under MAC anesthesia. Sinus rhythm was successfully restored. The patient recovered uneventfully from MAC anesthesia. There were no immediate post-procedure complications. The patient left the lab in good condition. The
attending physician was present throughout the entire procedure.
Impression: Unsuccessful direct current cardioversion attempted using 200, 360 and subsequent 360 joule biphasic synchronized shocks.
--- NOTE | 2024-05-07 13:14 | CM ---
Patient with Dx new Afib who is s/p ZIYAD and Cardioversion today. O2 2L.
Met with patient and poke with patient's son Azar;
the patient resides with his Arlene in a 2 story house with 1-2 MONSERRAT.
He was independent in ADLs and ambulation without using an assistive device, and active.
No DME.
No prior VN or SNF.
PCP - Shannon Giraldo
Pharmacy - [facility]
Offered VN for PT and patient declined, saying he would prefer a script for outpatient PT.
Plan request script for outpatient PT.
Plan home with script for outpatient PT.
--- NOTE | 2024-05-07 13:23 | PTCARENOTE ---
Patient returned from ZIYAD/cardioversion; remains in afib with cardizem drip infusion at 10mg/hr. HR 90s to low 100s. New orders verified by pharmacist include po cardizem but no order to d/c infusion. Pharmacist Yvrose will reach out to
cardiology to verify. TT sent to Dr Oro to start diet.
[2024-05-07] MEDS: CARDIZEM CD 240 MG PO ×2 (14:02→19:36)
--- NOTE | 2024-05-07 14:10 | W.PN.CARDCBS ---
Today's Communication / Plan
-
Unsuccessful cardioversion
Attempt rate control with oral diltiazem and amiodarone, wean diltiazem drip as able
Continue IV Lasix, hopefully transition to oral in the next 24 to 48 hours
Impression / Plan
-
PCP: Shannon Giraldo
Card: None prior to admission
Impression:
MARX and nausea on admission 05/05/24
Afib with RVR
Newly diagnosed paroxysmal Afib
Acute HFpEF
BPH
Obese, BMI 37.9
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
Patient came to [facility] yesterday form his PCPs office with a new diagnosis of A-fib with RVR and cardiology is now consulted. Patient was seeing his PCP yesterday because of nausea and MARX that seem to have started around the time that he started
taking Zepbound as a new weight loss medication about 1 to 2 weeks ago. Patient has been extremely nauseous and has had a dramatic decrease in p.o. intake. He also noticed MARX, but denies any orthopnea, edema or resting SOB. He performed a COVID
test at home before he saw his PCP yesterday that was negative. In the PCPs office he was noted to be in A-fib with RVR and no known history of A-fib. Patient was sent to ER where he had a CT of the chest that showed no evidence of PE. There
was a minimal posterior left pleural effusion and no suggestion of pulmonary edema. His proBNP was 1450. Patient was given Lasix 40 mg IV x 1 and does not feel any symptomatic improvement. Patient complains of ongoing sore throat and a repeat
COVID swab was negative and influenza screening was negative as well. He says throat pain is worse with swallowing. Denies chest pain or palpitations.
Plan:
-Presents with AFRVR and acute CHF
-ZIYAD/DCCV performed 05/07/24, briefly in sinus rhythm, but quickly converted back to AFib RVR
-Plan for rate control for now and re-attempt at DCCV as outpatient. Discussed P[facility] is likely the best [place] [facility] option.
-Cont dilt gtt for goal HR <110 bpm
-Start PO cardiazem 240mg BID
-Add amio 400mg BID for additional rate control
-Cont Eliquis 5 mg BID (age 69, Cre 1.1, 143 kg)
-proBNP was moderately elevated at 1450. Hypoxic which I suspect is multifactorial and in part due to undiagnosed lung disease.
-Continue IV lasix for now, tentative transition to PO in next 24-48hrs.
Progress Note - Swimming Pool Cleaner
Subjective
Date of Service: May 07, 2024
NAOE. Remains in IMU on supplemental O2. Dilt gtt for rate control. Unsuccessful DCCV this AM. No thrombus by ZIYAD.
Objective
Labs:
05/07/24 04:25
05/07/24 04:25
Labs
Hgb 13.5 g/dL (13.0-18.0) 05/07/24 04:25
Hct 41.2 % (39.0-52.0) 05/07/24 04:25
Plt Count 212 10^3/uL (130-400) 05/07/24 04:25
Sodium 137 mmol/L (135-145) 05/07/24 04:25
Potassium 4.4 mmol/L (3.5-5.1) 05/07/24 04:25
BUN 27 mg/dl (9-20) H 05/07/24 04:25
Creatinine 1.1 mg/dL (0.7-1.3) 05/07/24 04:25
Glucose 108 mg/dl (70-99) H 05/07/24 04:25
Troponins
05/05/24
16:04
Troponin I 0.015
Vital Signs and I&O:
Vital Signs
Temp Pulse Resp BP Pulse Ox
98.4 F 100 15 111/62 91
05/07/24 09:20 05/07/24 13:23 05/07/24 13:23 05/07/24 13:23 05/07/24 13:23
Vital Signs
Temp Pulse Resp BP Pulse Ox
98.4 F 100 15 111/62 91
05/07/24 09:20 05/07/24 13:23 05/07/24 13:23 05/07/24 13:23 05/07/24 13:23
Intake & Output
05/05/24 05/06/24 05/07/24 05/08/24
06:59 06:59 06:59 06:59
Intake Total 500 / 500
Output Total 1600 / 1600 1650 / 1650 400 / 400
Balance -1100 / -1100 -1650 / -1650 -400 / -400
Physical Exam
Physical Exam
Gen: NAD, AAOx3
HEENT: NC/AT, sclera anicteric
Neck: No JVD
CV: Irregularly irregular, NL s1/s2, no M/R/G
Lungs: CTAB on supplemental O2 via nasal cannula
Abd: S/ND
Ext: No LE edema
Skin: Warm, dry
Neuro: Non-focal
--- NOTE | 2024-05-07 15:02 | W.PN.HOSP.TC ---
Today's Communication/Plan
-
Assessment / Plan
Assessment / Plan
Gen-AAOx3, NAD
HEENT-NC, AT, anicteric, clear oral mm
Neck-supple
CV-irregular rhythm, HR around 90, no M
Lungs-clear B/L
Abd-soft, NT, ND
Musculoskeletal-no edema, no deformity
Skin-warm and dry
Neuro-grossly non-focal
Psych-calm, cooperative
Mr. Jenkins is a 69-year-old male with a medical history of enlarged prostate and obesity who presented with nausea and vomiting and shortness of breath. His symptoms began after taking Zepbound on 04/26 for weight loss. He followed up with his
PCP who found that he was in A-fib with RVR and referred him to the ED. EKG in the ED confirmed A-fib with RVR. He was started on Cardizem drip. CT imaging in the ED showed no evidence pulmonary embolism but did show minimal left pleural effusion
and possible bronchitis. He has been admitted for further evaluation and management of new onset A-fib with RVR.
A-fib with RVR:
-New onset A-fib
-Rate now better controlled with diltiazem drip but still mildly tachycardic with heart rate around 110, started on metoprolol succinate 25 mg daily
-Cardiology following, started oral anticoagulation with Eliquis and will continue on discharge
-Had plan for ZIYAD/cardioversion today however unsuccessful after 3 attempts (using 200, 360, and another 360 J biphasic synchronized shocks)
-Started on p.o. amiodarone load and diltiazem 240 mg p.o. twice daily
-Continue diltiazem drip and wean as able
Dyspnea on exertion:
-Patient reports dyspnea with exertion and orthopnea for the past few weeks prior to admission
-Cardiology recommending continuing IV Lasix 40 mg twice daily for now, likely transition to oral Lasix 20 mg daily tomorrow
Leukocytosis:
-Improving
-No overt signs of infection, may be reactive to rapid A-fib
-Received a dose of antibiotics initially in the ED, will continue to monitor off of antibiotics for now
-If worsening clinical status or leukocytosis does not resolve could treat empirically for community-acquired pneumonia
-Will monitor for now, breathing comfortably and saturating properly on room air
CODE STATUS: Full code
Anticipated Discharge: > 48 hours
Subjective/Interval History
-
Date of Service: May 07, 2024
Patient was seen and examined at bedside this morning. Reports feeling slightly better although not at his baseline. Planning ZIYAD with cardioversion today for uncontrolled A-fib.
Objective Data
-
Labs:
Laboratory Results
05/07/24
04:25
WBC 15.4 H
Hgb 13.5
Hct 41.2
Plt Count 212
Sodium 137
Potassium 4.4
Chloride 90 L
Carbon Dioxide 34 H
BUN 27 H
Creatinine 1.1
Glucose 108 H
Calcium 8.8
Total Bilirubin 1.2
AST 26
ALT 40
Alkaline Phosphatase 51
Vital Signs:
Vital Signs
Temp Pulse Resp BP Pulse Ox
98.1 F 100 15 111/62 91
05/07/24 14:11 05/07/24 13:23 05/07/24 13:23 05/07/24 13:23 05/07/24 13:23
I&O
05/06/24 05/07/24 05/08/24
06:59 06:59 06:59
Intake Total 500 / 500
Output Total 1600 / 1600 1650 / 1650 400 / 400
Balance -1100 / -1100 -1650 / -1650 -400 / -400
Review of Systems
-
History Source: Patient
All other systems: Reviewed and negative
Physical Exam
-
General: No Apparent Distress
--- NOTE | 2024-05-07 15:21 | PTCARENOTE ---
Pharmacy informed this RN that there was a taper order attached to the cardizem infusion order and to follow that. When reviewing, this nurse saw that there was no updated order from today. Spoke with pharmacist Helene who asked this nurse to reach
out to contract administration manager. HR 82-90s (remains afib), BP 99/63TT sent to Dr Monterroso, no immediate response. TT sent to Dr Sangita Kincaid who instructed to d/c cardizem infusion; infusion off at 15:12.
[2024-05-07] MEDS: PROSCAR 5 MG PO (17:33)
[2024-05-07] MEDS: FLOMAX 0.8 MG PO (17:33)
--- NOTE | 2024-05-07 18:49 | PTCARENOTE ---
Addendum entered by Juliana Marquez RN 05/07/24 19:02:
TT read by Dr Monterroso; reported off to oncoming RN. HR currently 92.
Original Note:
HR 150s when in BR having bm and stood at sink. Asymptomatic. Due for next dose of Cardizem Cd 240mg and Amiodarone 400mg po at 20:00. HR currently 107-112. TT sent to Dr Monterroso; provided him name of oncoming nurse if needing to TT after 19:00.
Will report off to next shift. Patient back in bed and resting. BP 119/85.
[2024-05-07] MEDS: PACERONE 400 MG PO (19:39)
[2024-05-07] MEDS: CORDARONE 518 MG IV (23:30)
[2024-05-07] MEDS: CORDARONE 103 MG IV (23:31)
--- NOTE | 2024-05-07 23:57 | PTCARENOTE ---
Patient's heart rates have been consistently 120-140s, after PO Cardizem and Amiodarone administration. BP 108/63. Pt also reports feeling SOB and restless. Pt appears slightly anxious and overall fatigued. Support provided. Sp02 88-89% on RA; 2L NC
placed. JUSTINA Cook made aware. Order for Amiodarone bolus and infusion received. Pt educated on medications, written on white board since pt has multiple questions. New IV placed by VAT team. Amio gtt and bolus administered per the JUN. pt tolerated
well. Patient appreciative of care. CB and tray table within reach.
Right AC old IV site from yesterday was noted to be red and hard to touch; area marked with sharpie and warm compress applied per recs of VAT. Pt denies any pain or discomfort.
[2024-05-08] VITALS (20 sets, daily range): BP systolic 74–127; BP diastolic 46–111; BMI 35.4
--- NOTE | 2024-05-08 00:23 | VATNOTE ---
WHEN RESTARTING CURRENT IV SITE. NOTED THAT PT HAD AN AREA OF 6X4CM REDDENED AND FIRM RAC WITH PALPABLE CORD AT SITE OF A PREVIOUS IV SITE. AREA OUTLINED. PCN AWARE AND SUGGESTED THAT FREQUENT APPLICATIONS OF WARM COMPRESSES BE APPLIED. VAT TO
MONITOR.
--- NOTE | 2024-05-08 01:33 | PTCARENOTE ---
Addendum entered by Meera Ochoa RN 05/08/24 01:43:
Amio gtt on hold and 250cc bolus over few hours recived from JUSTINA Cook.
Pt updated on plan of care.
Red/brown stain on bed sheets; possible gib? r/t new eliquis admin
Original Note:
Patient had the sudden urge to defecate. Ambulated to BR and pt had a large dark brown/red BM. Unable to visualize as pt flushed. HR dropped from 130s to 90s. still in afib. Pt then became diaphoretic and loss consciousness briefly while sitting on
the toliet. Amio gtt stopped. Called for assistance, pt consciousness came back and was able to transfer back into bed. BP reading 92/47 MAP 60. Pt then became nauseous when placed back to bed. JUSTINA Cook made aware of events.
[2024-05-08 01:40] LABS: Glucose - Point of Care 182 mg/dl (70-99)
[2024-05-08] MEDS: ZOFRAN 4 MG IV (01:50)
[2024-05-08] MEDS: NSS 250 IV (01:58)
[2024-05-08 03:38] LABS: % Basophils 0.5 % (0-2); % Eosinophils 0.3 % (0-6); % Lymphocytes 8.4 % (20.5-51.1); % Monocytes 7.4 % (1.7-9.3); % Neutrophils 80.4 % (42.2-75.2); Absolute Basophils 0.1 10^3/uL (0-0.2); Absolute Eosinophils 0.1 10^3/uL (0-0.7); Absolute Immature Granulocytes 0.7 10^3/uL (0-0.05); Absolute Lymphocytes 1.9 10^3/uL (1.2-3.4); Absolute Monocytes 1.7 10^3/uL (0.1-0.6); Absolute Neutrophils 18.5 10^3/uL (1.4-6.5); Mean Corp Hgb Conc. 34.3 g/dL (33.0-37.0); Mean Corpuscular Hgb 31.2 pg (27.0-31.0); Mean Corpuscular Volume 90.9 fL (80.0-94.0); Mean Platelet Volume 9.8 fL (7.4-10.4); Nucleated Red Blood Cells % 0 % (-); Platelet Count 272 10^3/uL (130-400); Red Blood Cell Count 3.85 10^6/uL (4.70-6.10); Red Cell Dist. Width 13.5 % (11.5-14.5)
--- NOTE | 2024-05-08 04:51 | PTCARENOTE ---
Addendum entered by Meera Ochoa RN 05/08/24 05:09:
while cleaning IV was found out. New IV placed again by VAT.
Original Note:
Upon rounding patient found to be naked in bed, soiled with dark burgundy colored stool. pt stated he woke up soiled. Pt was attempting to clean himself and had a pile of dirty wipes on the bedside table. Stool was loose with some small clots
present. Pt washed, all linens changed. stool stuck under finger nails and hand. cleansed as best we could. pt thankful for care.pt states he is embarrassed. support provided, let pt know he can and should ask for assistance. pt appears to be
forgetful. keeps saying 'wow'
[2024-05-08 05:17] LABS: ALT (SGPT) 30 U/L (0-50); AST (SGOT) 28 U/L (17-59); Albumin 3.5 g/dl (3.5-5.0); Alkaline Phosphatase 35 U/L (38-126); Blood Urea Nitrogen 58 mg/dl (9-20); Calcium 8.7 mg/dl (8.4-10.2); Carbon Dioxide 25 mmol/L (22-30); Chloride 95 mmol/L (98-107); Estimated Creatinine Clearance 86 ml/min; Glucose 139 mg/dl (70-99); Potassium 4.8 mmol/L (3.5-5.1); Sodium 132 mmol/L (135-145); Total Bilirubin 1.2 mg/dl (0.2-1.3); eGFR > 60.00
[2024-05-08] MEDS: NSS 500 IV (08:10)
[2024-05-08] MEDS: LASIX IV (08:26)
[2024-05-08] MEDS: ELIQUIS PO (08:26)
[2024-05-08] MEDS: PACERONE 400 MG PO ×2 (09:38→20:11)
[2024-05-08] MEDS: CARDIZEM CD PO (09:39)
--- NOTE | 2024-05-08 10:05 | PTCARENOTE ---
Rec'd pt this AM. Pt hypotensive with Sys in 70s. NSR now, confirmed with EKG. Updated Cardiology and Dr. Corona. NSS bolus given. BP improved to Sys 87. Pt continues to have melena stools. Pt is AAO x3. O2 weaned to 4L NC. PT currently on
bedrest due to syncopal episode overnight.
--- NOTE | 2024-05-08 10:25 | W.PN.CARDCBS ---
Today's Communication / Plan
-
GI bleed and hypotension overnight
Hold anticoagulation with ongoing w/up of GI bleed
Hold further diuresis
Converted to sinus rhythm this morning around 6 AM, would continue amiodarone to maintain NSR
Impression / Plan
-
PCP: Shannon Giraldo
Card: None prior to admission
Impression:
MARX and nausea on admission 05/05/24
Afib with RVR
Newly diagnosed paroxysmal Afib
Acute HFpEF
BPH
Obese, BMI 37.9
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
Patient came to [facility] yesterday form his PCPs office with a new diagnosis of A-fib with RVR and cardiology is now consulted. Patient was seeing his PCP yesterday because of nausea and MARX that seem to have started around the time that he started
taking Zepbound as a new weight loss medication about 1 to 2 weeks ago. Patient has been extremely nauseous and has had a dramatic decrease in p.o. intake. He also noticed MARX, but denies any orthopnea, edema or resting SOB. He performed a COVID
test at home before he saw his PCP yesterday that was negative. In the PCPs office he was noted to be in A-fib with RVR and no known history of A-fib. Patient was sent to ER where he had a CT of the chest that showed no evidence of PE. There
was a minimal posterior left pleural effusion and no suggestion of pulmonary edema. His proBNP was 1450. Patient was given Lasix 40 mg IV x 1 and does not feel any symptomatic improvement. Patient complains of ongoing sore throat and a repeat
COVID swab was negative and influenza screening was negative as well. He says throat pain is worse with swallowing. Denies chest pain or palpitations.
Plan:
-Presents with AFRVR and acute CHF
-Now with GI bleed, hypotension and rising WBC
-ZIYAD/DCCV performed 05/07/24, briefly in sinus rhythm, but quickly converted back to AFib RVR. Subsequently converted at 6AM 05/08.
-Cont amio 400mg BID to maintain NSR
-Eliquis on hold for GIB, ideally would resume when safe from GI standpoint
-Presented with hypoxia which I suspect is multifactorial and in part due to CHF but also likely undiagnosed lung disease
-Hold lasix with GIB and hypotension
-Wean O2 as able
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
Subjective
Date of Service: May 08, 2024
Tells me he had a bad night, but not reporting CP/SOB/palpitations.
Per nursing had melena overnight and patient was hypotensive for which IVF bolus was given.
Converted to sinus around 6AM per review of tele.
Objective
Labs:
05/08/24 03:19
05/08/24 03:19
Labs
Hgb 12.0 g/dL (13.0-18.0) L 05/08/24 03:19
Hct 35.0 % (39.0-52.0) L 05/08/24 03:19
Plt Count 272 10^3/uL (130-400) D 05/08/24 03:19
Sodium 132 mmol/L (135-145) L 05/08/24 03:19
Potassium 4.8 mmol/L (3.5-5.1) 05/08/24 03:19
BUN 58 mg/dl (9-20) H 05/08/24 03:19
Creatinine 1.2 mg/dL (0.7-1.3) 05/08/24 03:19
Glucose 139 mg/dl (70-99) H 05/08/24 03:19
Troponins
05/05/24
16:04
Troponin I 0.015
Vital Signs and I&O:
Vital Signs
Temp Pulse Resp BP Pulse Ox
98.1 F 78 21 109/71 96
05/08/24 07:03 05/08/24 10:00 05/08/24 10:00 05/08/24 10:00 05/08/24 10:00
Vital Signs
Temp Pulse Resp BP Pulse Ox
98.1 F 78 21 109/71 96
05/08/24 07:03 05/08/24 10:00 05/08/24 10:00 05/08/24 10:00 05/08/24 10:00
Intake & Output
05/06/24 05/07/24 05/08/24 05/09/24
06:59 06:59 06:59 06:59
Intake Total 500 / 500 490 / 490
Output Total 1600 / 1600 1650 / 1650 2625 / 2625
Balance -1100 / -1100 -1650 / -1650 -2135 / -2135
Physical Exam
Physical Exam
Gen: NAD, AA
HEENT: NC/AT, sclera anicteric
Neck: No JVD
CV: RRR, NL s1/s2
Lungs: CTAB on 2 L nasal cannula
Abd: S/ND
Ext: No LE edema
Skin: Warm, dry
Neuro: Non-focal
--- NOTE | 2024-05-08 11:07 | CON.GI ---
Addendum entered and electronically signed by Karo Taylor DO 05/08/24 15:08:
Patient seen and examined independently of JUSTINA. I agree with her note with my additions below
Joseph is a 69-year-old male with significant NSAID use who came in with new onset A-fib with RVR underwent unsuccessful cardioversion fortunately no clot found on ZIYAD he was then placed on Eliquis. Heart rates are better controlled now on
amiodarone and Cardizem drip. Apparently went into sinus this morning. Last night started having multiple episodes of burgundy stools and hemoglobin dropped from 15 now down to 10. He did have episodes of hypotension overnight and is currently
hemodynamically stable. Also symptomatic upon rising out of bed.
Overall, patient denies any significant GI symptoms and does not take a PPI at home. He has no chronic dysphagia, significant heartburn. He has had issues with taking GLP-1 medications and had significant nausea and vomiting requiring him to stop
drug.
Decided to take patient for urgent endoscopy today.
Patient follows with Dr. Landon and is up-to-date with colonoscopy. I reviewed his last colonoscopy April 2023
See endoscopy for results.
Original Note:
Consultation
-
Date/Time Consultation Requested: 05/08/24 0730
Date/Time Consultation Performed: 05/08/24 1100
Requesting Provider: Danish Oro DO
Performing Provider: JUSTINA Garland, Karo Taylor DO
Reason for Consultation: GI bleed
Medical History
Chief Complaint / HPI
Chief Complaint: GI bleed
History of Present Illness:
Pt is a 69yo with hx BPH, daily NSAID use for aches and pain, prior tobacco abuse, and obesity. In review with patient he has some intentional wt loss last year. He took Semaglutide about a year ago with nausea and vomiting. He decided to try
medication again and started Tirzaepartide about 1 weeks ago. He began with nausea/vomiting and abdominal pain. He went to PCP and was noted with also shortness of breath, fatigue and sore throat. He was noted with new afib and sent to ER. he
was seen by cardiology on admission and placed on Eliquis and also noted acute HFpEF. s/p ZIYAD/CV 05/07. After 3 doses noted with onset of loose black/burgundy stool with multiple stool 05/07-05/08. He admits to daily NSAID use for aches and pains.
Pt was also noted with leukocytosis, CXR with concern for PNA vs atelectasis and follow up CT chest with PE study with neg PE, minimal effusion, fatty liver, atelectasis and suggest bronchitis . No hx EGD but had colonoscopy 04/2023- dipesh- -
Seven 4 mm polyps in the rectum, at the splenic flexure, in the transverse colon and in the ascending colon, removed with a cold snare. bx TA and HP polyps Resected and retrieved. diverticulosis. hbg 15 with drop to 12 and BUN 25 up to 58 after
admission.
Pt otherwise denies GERD, nausea, vomiting, abdominal pain, diarrhea, constipation, or prior GI bleeding. + dizziness with getting out of bed overnight and hypotension after bleeding.
Past Medical History
Past Medical History: Arrhythmias (afib RVR on admission) and Other (fatty liver per imaging, obesity)
Social History
Tobacco: Former Smoker
Alcohol: None
Drug: None
Personal:
Living: With Family
Employment: Retired
Family History
Family History: Other (no family hx colon CA or polyps)
Allergies / Home Medications
Allergy/AdvReac Type Severity Reaction Status Date / Time
No Known Allergies Allergy Unverified 12/22/21 11:53
�Medication �Instructions �Recorded
finasteride 5 mg tablet 5 mg PO QPM 05/05/24
tamsulosin 0.4 mg capsule (Flomax) 0.8 mg PO QPM 05/05/24
Review of Systems
-
History Source: Patient
Vital Signs
Temp Pulse Resp BP Pulse Ox
98.1 F 78 21 109/71 96
05/08/24 07:03 05/08/24 10:00 05/08/24 10:00 05/08/24 10:00 05/08/24 10:00
Physical Exam
Exam
General: Well Developed and Well Nourished
HEENT: Normocephalic and Anicteric
Respiratory: Clear
Cardiac: Regular Rhythm
GI: Soft, Non Tender, Non Distended and Other (large abdomen )
Rectal: Black (dark red/black stool no masses or lesions)
Musculoskeletal: No Clubbing and No Cyanosis
Skin: Warm and Dry
Neuro: Awake, Alert and AO x 3
Psych: Calm
Results
WBC 23.0 10^3/uL (4.8-10.8) H 05/08/24 03:19
Hgb 12.0 g/dL (13.0-18.0) L 05/08/24 03:19
Hct 35.0 % (39.0-52.0) L 05/08/24 03:19
MCV 90.9 fL (80.0-94.0) 05/08/24 03:19
Plt Count 272 10^3/uL (130-400) D 05/08/24 03:19
Absolute Neuts (auto) 18.5 10^3/uL (1.4-6.5) H 05/08/24 03:19
Sodium 132 mmol/L (135-145) L 05/08/24 03:19
Potassium 4.8 mmol/L (3.5-5.1) 05/08/24 03:19
Chloride 95 mmol/L (98-107) L 05/08/24 03:19
Carbon Dioxide 25 mmol/L (22-30) 05/08/24 03:19
BUN 58 mg/dl (9-20) H 05/08/24 03:19
Creatinine 1.2 mg/dL (0.7-1.3) 05/08/24 03:19
Calcium 8.7 mg/dl (8.4-10.2) 05/08/24 03:19
Total Bilirubin 1.2 mg/dl (0.2-1.3) 05/08/24 03:19
AST 28 U/L (17-59) 05/08/24 03:19
ALT 30 U/L (0-50) 05/08/24 03:19
Alkaline Phosphatase 35 U/L (38-126) L 05/08/24 03:19
Lipase Cancelled 05/05/24 21:28
Diagnostic Image Results:
05/05/24- CXR
Left basilar atelectasis or pneumonia.
05/05/24 CT Chest PE Study
No evidence for pulmonary embolism.
Minimal posterior left pleural effusion.
Parenchymal opacity within the left lower lung, mainly inferiorly, morphology suggestive of atelectasis.
Linear and wedge-shaped densities within the anteromedial left upper lobe and lingula, appearance highly suggestive of atelectasis.
Suggestion of bronchial wall thickening and narrowing of the diameter of the bronchi within both lower lobes, left greater right, findings suggestive of bronchitis.
Fatty infiltration of the liver.
Prior GI Procedures:
EGD: none
Colonoscopy: 04/2023- landon- - Seven 4 mm polyps in the rectum, at the splenic flexure, in the transverse colon and in the ascending colon, removed with a cold snare. bx TA and HP polyps Resected and retrieved. diverticulosis.
Assessment / Plan
-
Pt is a 69yo with hx BPH, daily NSAID use for aches and pain, and obesity. In review with patient he has some intentional wt loss last year. He took Semaglutide about a year ago with nausea and vomiting. He decided to try medication again and
started Tirzaepartide about 1 weeks ago. He began with nausea/vomiting and abdominal pain. He went to PCP and was noted with also shortness of breath, fatigue and sore throat. He was noted with new afib and sent to ER. he was seen by
cardiology on admission and placed on Eliquis and also noted acute HFpEF. s/p ZIYAD/CV 05/07. After 3 doses noted with onset of loose black/burgundy stool with multiple stool 05/07-05/08. He admits to daily NSAID use for aches and pains. Pt was also
noted with leukocytosis, CXR with concern for PNA vs atelectasis and follow up CT chest with PE study with neg PE, minimal effusion, fatty liver, atelectasis and suggest bronchitis . No hx EGD but had colonoscopy 04/2023- dipesh- - Seven 4 mm
polyps in the rectum, at the splenic flexure, in the transverse colon and in the ascending colon, removed with a cold snare. bx TA and HP polyps Resected and retrieved. diverticulosis. hbg 15 with drop to 12 and BUN 25 up to 58 after admission and
noted with hypotension with bleeding.
-melena/burgundy stool concern for UGI bleed
-anemia with drop in hbg after admission
-hypotension
-rise in BUN
-Daily NSAID use
-new Afib with RVR with ZIYAD/CV 05/07
-acute HFpEF
other med problems;
-hx colon polyps
-fatty liver per imaging
-obesity with recent Zepbound with nausea, vomiting, abdominal pain
-BPH
PLAN:
etiology of black/burgundy stool with drop in hbg and elevated BUN related to UGI bleed-- PUD with daily NSAID use, ectasia, mass vs other
t/c EGD will review timing with Dr. Taylor-- last Eliquis 05/07 PM but noted hypotension/multiple stools overnight.
trend hbg and stool records- transfuse as needed
add PPI gtt with bolus
NPO
Eliquis hold
OP work up for fatty liver follow with Dr. Landon in office
updated nursing staff
-
-
-
Thank you for consultation and allowing me to participate in the patient's care. Please call the monologist GI physician during the after hours with any questions or concerns.
[2024-05-08] MEDS: PROTONIX IV 80 MG IV (12:50)
[2024-05-08] MEDS: PROTONIX 100 IV (12:51)
[2024-05-08] MEDS: NSS (PRESERVATIVE FREE) 20 ML IV (12:51)
[2024-05-08 13:32] LABS: Hematocrit 30.4 % (39.0-52.0); Hemoglobin 10.5 g/dL (13.0-18.0)
--- NOTE | 2024-05-08 14:01 | VATNOTE ---
Right arm antecubital phlebitic area reassessed. Continue to palpate [id number] cord but client states it is not tender. Area of involvement firm and reddened. Arm elevated on pillow.
--- NOTE | 2024-05-08 15:20 | PTCARENOTE ---
Patient to GI lab for endoscopy. Received report from PACU. Diet changed to full liquids. Patient returning shortly.
--- NOTE | 2024-05-08 16:08 | PTCARENOTE ---
Patient returned from PACU. Currently resting in bed, aao x3, denies pain. Patient in NSR with bbb, lungs cta throughout. Bs active x4. Protonix gtt resumed per orders. Will continue to monitor.
--- NOTE | 2024-05-08 16:44 | CM ---
Patient with Dx new Afib. Endoscopy today. O2 4L. Receiving IV Amiodarone. PT recommends HH. OT; home with assist.
Plan watch for home O2 needs.
Plan request script for outpatient PT.
Plan home with script for outpatient PT.
--- NOTE | 2024-05-08 17:28 | W.PN.HOSP.TC ---
Today's Communication/Plan
-
Assessment / Plan
Assessment / Plan
Gen-AAOx3, NAD
HEENT-NC, AT, anicteric, clear oral mm
Neck-supple
CV-irregular rhythm, HR around 90, no M
Lungs-clear B/L
Abd-soft, NT, ND
Musculoskeletal-no edema, no deformity
Skin-warm and dry
Neuro-grossly non-focal
Psych-calm, cooperative
Mr. Jenkins is a 69-year-old male with a medical history of enlarged prostate and obesity who presented with nausea and vomiting and shortness of breath. His symptoms began after taking Zepbound on 04/26 for weight loss. He followed up with his
PCP who found that he was in A-fib with RVR and referred him to the ED. EKG in the ED confirmed A-fib with RVR. He was started on Cardizem drip. CT imaging in the ED showed no evidence pulmonary embolism but did show minimal left pleural effusion
and possible bronchitis. He has been admitted for further evaluation and management of new onset A-fib with RVR.
GI bleed:
-Multiple episodes of melena overnight with hypotension
-Holding Eliquis
-Started high-dose PPI
-Monitor H&H, transfuse as needed
-GI following, plan for endoscopy today
A-fib with RVR:
-New onset A-fib
-Initially unsuccessful cardioversion 05/07 despite multiple shocks, started on amiodarone, converted to normal sinus rhythm around 6 AM this morning 05/08
-Continuing amiodarone 400 mg p.o. twice daily
-Currently holding Eliquis due to GI bleeding
-Diltiazem discontinued
Dyspnea on exertion:
-Patient reports dyspnea with exertion and orthopnea for the past few weeks prior to admission
-Had been diuresing with IV Lasix twice daily diuresis due to GI bleeding with hypotension
Leukocytosis:
-Worse today in the setting of acute GI bleeding
-No overt signs of infection
-Received a dose of antibiotics initially in the ED, will continue to monitor off of antibiotics for now
CODE STATUS: Full code
Anticipated Discharge: > 48 hours
Subjective/Interval History
-
Date of Service: May 08, 2024
Patient was seen and examined at bedside this morning. Has had multiple episodes of melena overnight. Holding Eliquis. Started IV PPI.
Objective Data
-
Labs:
Laboratory Results
05/08/24 05/08/24
13:22 20:30
Hgb 10.5 L Pending
Hct 30.4 L Pending
Vital Signs:
Vital Signs
Temp Pulse Resp BP Pulse Ox
97.9 F 90 12 102/72 96
05/08/24 15:27 05/08/24 16:00 05/08/24 14:00 05/08/24 16:00 05/08/24 15:27
I&O
05/07/24 05/08/24 05/09/24
06:59 06:59 06:59
Intake Total 490 / 490 1060 / 1060
Output Total 1650 / 1650 2625 / 2625 800 / 800
Balance -1650 / -1650 -2135 / -2135 260 / 260
Review of Systems
-
History Source: Patient
All other systems: Reviewed and negative
Abdomen/GI: Reports Bloody Stools
Physical Exam
-
General: No Apparent Distress
[2024-05-08] MEDS: PROSCAR 5 MG PO (17:43)
[2024-05-08] MEDS: FLOMAX 0.8 MG PO (17:43)
[2024-05-08 20:48] LABS: Hematocrit 27.6 % (39.0-52.0); Hemoglobin 9.6 g/dL (13.0-18.0)
[2024-05-09] VITALS (11 sets, daily range): BP systolic 103–143; BP diastolic 61–111; BMI 35.4
[2024-05-09] MEDS: PROTONIX 100 IV (00:08)
[2024-05-09 04:52] LABS: % Basophils 0.4 % (0-2); % Eosinophils 1.2 % (0-6); % Immature Granulocytes 1.6 % (0-0.5); % Lymphocytes 15.5 % (20.5-51.1); % Neutrophils 75.3 % (42.2-75.2); Absolute Basophils 0.1 10^3/uL (0-0.2); Absolute Eosinophils 0.2 10^3/uL (0-0.7); Absolute Immature Granulocytes 0.3 10^3/uL (0-0.05); Absolute Lymphocytes 2.6 10^3/uL (1.2-3.4); Absolute Neutrophils 12.7 10^3/uL (1.4-6.5); Hematocrit 26.9 % (39.0-52.0); Hemoglobin 8.9 g/dL (13.0-18.0); Mean Corp Hgb Conc. 33.1 g/dL (33.0-37.0); Mean Corpuscular Volume 93.7 fL (80.0-94.0); Mean Platelet Volume 9.9 fL (7.4-10.4); Nucleated Red Blood Cells % 0 % (-); Platelet Count 222 10^3/uL (130-400); Red Blood Cell Count 2.87 10^6/uL (4.70-6.10); Red Cell Dist. Width 13.8 % (11.5-14.5); White Blood Cell Count 16.9 10^3/uL (4.8-10.8)
[2024-05-09 05:28] LABS: Blood Urea Nitrogen 38 mg/dl (9-20); Calcium 8.2 mg/dl (8.4-10.2); Carbon Dioxide 33 mmol/L (22-30); Chloride 96 mmol/L (98-107); Estimated Creatinine Clearance 103 ml/min; Glucose 138 mg/dl (70-99); Potassium 4.4 mmol/L (3.5-5.1); Sodium 135 mmol/L (135-145); eGFR > 60.00
[2024-05-09] MEDS: CARAFATE SUSPENSION 1 GM PO ×4 (09:25→21:33)
[2024-05-09] MEDS: PACERONE 400 MG PO ×2 (09:25→21:33)
[2024-05-09] MEDS: PROTONIX 40 MG PO ×2 (09:25→21:33)
--- NOTE | 2024-05-09 09:46 | W.PN.GI.CBS2 ---
Today's Communication / Plan
-
-- Advancing diet, added sucralfate
Assessment / Plan
-
Pt is a 69yo with hx BPH, daily NSAID use for aches and pain, and obesity. In review with patient he has some intentional wt loss last year. He took Semaglutide about a year ago with nausea and vomiting. He decided to try medication again and
started Tirzaepartide about 1 weeks ago. He began with nausea/vomiting and abdominal pain. He went to PCP and was noted with also shortness of breath, fatigue and sore throat. He was noted with new afib and sent to ER. he was seen by
cardiology on admission and placed on Eliquis and also noted acute HFpEF. s/p ZIYAD/CV 05/07. After 3 doses noted with onset of loose black/burgundy stool with multiple stool 05/07-05/08. He admits to daily NSAID use for aches and pains. Pt was also
noted with leukocytosis, CXR with concern for PNA vs atelectasis and follow up CT chest with PE study with neg PE, minimal effusion, fatty liver, atelectasis and suggest bronchitis . No hx EGD but had colonoscopy 04/2023- landon- - Seven 4 mm
polyps in the rectum, at the splenic flexure, in the transverse colon and in the ascending colon, removed with a cold snare. bx TA and HP polyps Resected and retrieved. diverticulosis. hbg 15 with drop to 12 and BUN 25 up to 58 after admission and
noted with hypotension with bleeding.
-melena/burgundy stool concern for UGI bleed
-anemia with drop in hbg after admission
-hypotension
-rise in BUN
-Daily NSAID use
-new Afib with RVR with ZIYAD/CV 05/07
-acute HFpEF
other med problems;
-hx colon polyps
-fatty liver per imaging
-obesity with recent Zepbound with nausea, vomiting, abdominal pain
-BPH
05/08/2024 EGD -multiple large linear ulcers throughout the fundus and gastric body with 1 in the antrum. No significant active bleeding but old blood was found. Treated a few mildly oozing spots with BiCap
Likely NSAID induced. He said he ate NSAIDs like candy and was not on a PPI, then we added Eliquis and he bled
PLAN:
--- Will advance diet today to low residue. Low residue is only in case he rebleeds and we need to look sooner than later. Upon discharge normal diet
--Twice daily PPI plus Carafate to help ulcers heal quicker, upon discharge twice daily PPI for 2 months, then once daily indefinitely
--Will need follow-up in our office with Dr. Landon for repeat EGD in 2 months to ensure healing and to ensure there is no neoplasm underneath these multiple large ulcers
--Discussed all of this with the patient
OP work up for fatty liver follow with Dr. Landon in office
--If Eliquis is necessary, would give him another day off Eliquis to help the PPI work to heal these ulcers
-- Upon discharge repeat CBC in 1 week
-
Subjective
Subjective
Date of Service: May 09, 2024
feeling good. no urgency and no further BMs since yesterday
Objective
Data Reviewed
Laboratory Data:
Laboratory Results
05/09/24 04:34
05/09/24 04:34
Laboratory Results
Total Bilirubin 1.2 mg/dl (0.2-1.3) 05/08/24 03:19
AST 28 U/L (17-59) 05/08/24 03:19
ALT 30 U/L (0-50) 05/08/24 03:19
Alkaline Phosphatase 35 U/L (38-126) L 05/08/24 03:19
Lipase Cancelled 05/05/24 21:28
Vital Signs and I&O:
Vital Signs
Temp Pulse Resp BP Pulse Ox
97.7 F 88 14 126/75 90
05/09/24 03:45 05/09/24 06:00 05/09/24 06:00 05/09/24 06:00 05/09/24 06:00
I&O
05/08/24 05/09/24 05/10/24
06:59 06:59 06:59
Intake Total 490 / 490 1460 / 1460
Output Total 2625 / 2625 1900 / 1900
Balance -2135 / -2135 -440 / -440
Physical Exam
Physical Exam
HEENT: Anicteric
Cardiology: Normal Sinus Rhythm
GI: Soft, Non Distended and Non Tender
Extremities: No Edema
Neuro: Non Focal
[2024-05-09] MEDS: FLEXERIL 5 MG PO ×2 (11:55→21:32)
--- NOTE | 2024-05-09 13:27 | W.PN.CARDCBS ---
Today's Communication / Plan
-
Will give 1 dose of Lasix 20 mg IV.
Wean oxygen as tolerated
Okay to resume anticoagulation tomorrow per GI
Impression / Plan
-
PCP: Shannon Giraldo
Card: None prior to admission
Impression:
MARX and nausea on admission 05/05/24
Afib with RVR
Newly diagnosed paroxysmal Afib
Acute HFpEF
BPH
Obese, BMI 37.9
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
Transesophageal echo 05/07/2024 with EF 55 to 60%. Normal RV. Mild MR. Mild TR with PA pressure 24 mmHg
Plan:
He presented with atrial fibrillation with rapid ventricular response and decompensated heart failure with preserved ejection fraction. He then developed GI bleed, hypotension and rising WBC
-For rapid atrial fibrillation ZIYAD/DCCV performed 05/07/24, briefly in sinus rhythm, but quickly converted back to AFib RVR. Subsequently converted at 6AM 05/08.
-He continues in sinus rhythm and continues loaded with amiodarone 400mg BID to maintain NSR. Telemetry reviewed.
-Unfortunately he is at very high risk for thromboembolic event given recent cardioversion/consult for urgent to sinus rhythm but post GI bleed (another high risk situation) oral anticoagulation is currently at hold and we have been requested by GI
not to resume until tomorrow. Continue to monitor closely.
-He initially presented with hypoxia which I suspect is multifactorial and in part due to CHF but also likely undiagnosed lung disease
-Lasix has been on hold but will give 20 of IV now and follow clinically.
-Wean O2 as able
Patient came to [facility] 05/06/2024 form his PCPs office with a new diagnosis of A-fib with RVR and cardiology is now consulted. Patient was seeing his PCP yesterday because of nausea and MARX that seem to have started around the time that he started
taking Zepbound as a new weight loss medication about 1 to 2 weeks ago. Patient has been extremely nauseous and has had a dramatic decrease in p.o. intake. He also noticed MARX, but denies any orthopnea, edema or resting SOB. He performed a COVID
test at home before he saw his PCP yesterday that was negative. In the PCPs office he was noted to be in A-fib with RVR and no known history of A-fib. Patient was sent to ER where he had a CT of the chest that showed no evidence of PE. There
was a minimal posterior left pleural effusion and no suggestion of pulmonary edema. His proBNP was 1450. Patient was given Lasix 40 mg IV x 1 and does not feel any symptomatic improvement. Patient complains of ongoing sore throat and a repeat
COVID swab was negative and influenza screening was negative as well. He says throat pain is worse with swallowing. Denies chest pain or palpitations.
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
Subjective
Date of Service: May 09, 2024
Objective
Labs:
05/09/24 04:34
05/09/24 04:34
Labs
Hgb 8.9 g/dL (13.0-18.0) L 05/09/24 04:34
Hct 26.9 % (39.0-52.0) L 05/09/24 04:34
Plt Count 222 10^3/uL (130-400) 05/09/24 04:34
Sodium 135 mmol/L (135-145) 05/09/24 04:34
Potassium 4.4 mmol/L (3.5-5.1) 05/09/24 04:34
BUN 38 mg/dl (9-20) H 05/09/24 04:34
Creatinine 1.0 mg/dL (0.7-1.3) 05/09/24 04:34
Glucose 138 mg/dl (70-99) H 05/09/24 04:34
Vital Signs and I&O:
Vital Signs
Temp Pulse Resp BP Pulse Ox
98.0 F 94 15 126/68 89
05/09/24 07:41 05/09/24 12:00 05/09/24 12:00 05/09/24 12:00 05/09/24 12:00
Vital Signs
Temp Pulse Resp BP Pulse Ox
98.0 F 94 15 126/68 89
05/09/24 07:41 05/09/24 12:00 05/09/24 12:00 05/09/24 12:00 05/09/24 12:00
Intake & Output
05/07/24 05/08/24 05/09/24 05/10/24
06:59 06:59 06:59 06:59
Intake Total 490 / 490 1460 / 1460
Output Total 1650 / 1650 2625 / 2625 1900 / 1900
Balance -1650 / -1650 -2135 / -2135 -440 / -440
Physical Exam
Physical Exam
General: Well developed, well nourished in NAD.
Heart: Non displaced PMI, RRR, no murmurs, No S3, S4, no rubs.
Lungs: Decreased breath sounds at the bases
Abdomen: Normal bowel sounds, soft, non-tender, non-distended.
Extremities: No clubbing, cyanosis and trace edema bilaterally.
Neuro: Grossly nonfocal, awake, alert and oriented x3.
--- NOTE | 2024-05-09 13:45 | VATNOTE ---
Right arm phlebitic area in right antecubital fossa reassessed. site remains unchanged with a [id number] palpable cord noted. Tender to touch today. Area firm and reddened. Warm soak applied.
[2024-05-09] MEDS: LASIX 20 MG IV (14:12)
--- NOTE | 2024-05-09 15:48 | W.PN.HOSP.TC ---
Today's Communication/Plan
-
Assessment / Plan
Assessment / Plan
Gen-AAOx3, NAD
HEENT-NC, AT, anicteric, clear oral mm
Neck-supple
CV-normal sinus rhythm, HR around 90, no M
Lungs-clear B/L
Abd-soft, NT, ND
Musculoskeletal-no edema, no deformity
Skin-warm and dry
Neuro-grossly non-focal
Psych-calm, cooperative
Mr. Jenkins is a 69-year-old male with a medical history of enlarged prostate and obesity who presented with nausea and vomiting and shortness of breath. His symptoms began after taking Zepbound on 04/26 for weight loss. He followed up with his
PCP who found that he was in A-fib with RVR and referred him to the ED. EKG in the ED confirmed A-fib with RVR. He was started on Cardizem drip. CT imaging in the ED showed no evidence pulmonary embolism but did show minimal left pleural effusion
and possible bronchitis. He has been admitted for further evaluation and management of new onset A-fib with RVR.
GI bleed:
-Status post upper endoscopy 05/08 with finding of multiple linear gastric ulcers, tolerated procedure well
-Holding Eliquis for now, can likely restart tomorrow 2/2
-Continuing high-dose PPI and Carafate, will need to continue twice daily PPI for 2 months then once daily indefinitely
-Hemoglobin dropped from 12-9 although appears stable now, monitor H&H, transfuse as needed
-Appreciate GI input, patient will need to follow-up outpatient GI for repeat EGD in 2 months
-Will advance diet to low residue
A-fib with RVR:
-New onset A-fib
-Initially unsuccessful cardioversion 05/07 despite multiple shocks, started on amiodarone, converted to normal sinus rhythm around 6 AM morning 05/08
-Continuing amiodarone 400 mg p.o. twice daily
-Currently holding Eliquis due to GI bleeding, likely restart Eliquis tomorrow 05/10
-Diltiazem discontinued
Dyspnea on exertion:
-Patient reports dyspnea with exertion and orthopnea for the past few weeks prior to admission
-Had been diuresing with IV Lasix twice daily however had held diuresis due to GI bleeding with hypotension
-Hypotension now resolved, given 1 dose of IV Lasix and will monitor
-Supplemental oxygen as needed, wean as able
Leukocytosis:
-Improving
-Likely acute stress reaction secondary to A-fib with RVR and GI bleeding, no overt signs of infection
-Received a dose of antibiotics initially in the ED, will continue to monitor off of antibiotics for now
CODE STATUS: Full code
Anticipated Discharge: 24 - 48 hours
Subjective/Interval History
-
Date of Service: May 09, 2024
Patient was seen and examined at bedside this morning. He is status post upper endoscopy yesterday with finding of multiple linear gastric ulcers. Tolerated procedure well and feeling much better this morning. Hemoglobin dropped 3 g the past 24
hours although remains hemodynamically stable and in normal sinus rhythm. Continuing PPI and sucralfate. Holding anticoagulation for now.
Objective Data
-
Labs:
Laboratory Results
05/09/24
04:34
WBC 16.9 H
Hgb 8.9 L
Hct 26.9 L
Plt Count 222
Sodium 135
Potassium 4.4
Chloride 96 L
Carbon Dioxide 33 H
BUN 38 H
Creatinine 1.0
Glucose 138 H
Calcium 8.2 L
Vital Signs:
Vital Signs
Temp Pulse Resp BP Pulse Ox
98.0 F 95 19 125/78 89
05/09/24 07:41 05/09/24 14:00 05/09/24 14:00 05/09/24 14:00 05/09/24 12:00
I&O
05/08/24 05/09/24 05/10/24
06:59 06:59 06:59
Intake Total 490 / 490 1460 / 1460
Output Total 2625 / 2625 1900 / 1900
Balance -2135 / -2135 -440 / -440
Review of Systems
-
History Source: Patient
All other systems: Reviewed and negative
Physical Exam
-
General: No Apparent Distress
[2024-05-09] MEDS: PROSCAR 5 MG PO (17:13)
[2024-05-09] MEDS: FLOMAX 0.8 MG PO (17:13)
[2024-05-10] VITALS (13 sets, daily range): BP systolic 100–145; BP diastolic 49–81; PULSE 91–93; BMI 35.1
--- NOTE | 2024-05-10 02:06 | PTCARENOTE ---
Received pt from day shift RN. Pt aaox3. NSR on monitor. VSS. Pt is c/o right upper back/shoulder muscle spasms, PRN Flexeril admin (see MAR). Pt c/o 10/15 dull aching pain in his right knee. Pt stated he has had this pain for the past two weeks.
Notified SATNAM Epstein and received Rx for Bengay cream. Pt resting in bed with call zimmer in reach.
[2024-05-10 05:42] LABS: % Basophils 0.3 % (0-2); % Eosinophils 1.1 % (0-6); % Immature Granulocytes 0.9 % (0-0.5); % Lymphocytes 9.2 % (20.5-51.1); % Monocytes 6.5 % (1.7-9.3); Absolute Basophils 0.1 10^3/uL (0-0.2); Absolute Eosinophils 0.2 10^3/uL (0-0.7); Absolute Immature Granulocytes 0.2 10^3/uL (0-0.05); Absolute Lymphocytes 1.7 10^3/uL (1.2-3.4); Absolute Monocytes 1.2 10^3/uL (0.1-0.6); Absolute Neutrophils 15.5 10^3/uL (1.4-6.5); Hematocrit 26.8 % (39.0-52.0); Hemoglobin 9.1 g/dL (13.0-18.0); Mean Corpuscular Hgb 31.6 pg (27.0-31.0); Mean Corpuscular Volume 93.1 fL (80.0-94.0); Nucleated Red Blood Cells % 0 % (-); Platelet Count 235 10^3/uL (130-400); Red Blood Cell Count 2.88 10^6/uL (4.70-6.10); Red Cell Dist. Width 13.4 % (11.5-14.5); White Blood Cell Count 18.9 10^3/uL (4.8-10.8)
[2024-05-10 06:03] LABS: Blood Urea Nitrogen 27 mg/dl (9-20); Calcium 8.7 mg/dl (8.4-10.2); Carbon Dioxide 33 mmol/L (22-30); Chloride 94 mmol/L (98-107); Estimated Creatinine Clearance 103 ml/min; Glucose 126 mg/dl (70-99); Magnesium 1.9 mg/dl (1.6-2.3); Phosphorus 2.9 mg/dl (2.5-4.5); Potassium 4.5 mmol/L (3.5-5.1); Sodium 134 mmol/L (135-145); eGFR > 60.00
[2024-05-10] MEDS: BenGay-Like 1 APPLIC TOPICAL ×4 (08:12→22:23)
[2024-05-10] MEDS: PACERONE 400 MG PO ×2 (08:12→20:11)
[2024-05-10] MEDS: CARAFATE SUSPENSION 1 GM PO ×4 (08:12→22:22)
[2024-05-10] MEDS: PROTONIX 40 MG PO ×2 (08:13→20:11)
--- NOTE | 2024-05-10 10:13 | W.PN.GI.CBS2 ---
Today's Communication / Plan
-
-- Okay to restart Eliquis, monitor for overt bleeding, check hemoglobin in the morning
Assessment / Plan
-
Pt is a 69yo with hx BPH, daily NSAID use for aches and pain, and obesity. In review with patient he has some intentional wt loss last year. He took Semaglutide about a year ago with nausea and vomiting. He decided to try medication again and
started Tirzaepartide about 1 weeks ago. He began with nausea/vomiting and abdominal pain. He went to PCP and was noted with also shortness of breath, fatigue and sore throat. He was noted with new afib and sent to ER. he was seen by
cardiology on admission and placed on Eliquis and also noted acute HFpEF. s/p ZIYAD/CV 05/07. After 3 doses noted with onset of loose black/burgundy stool with multiple stool 05/07-05/08. He admits to daily NSAID use for aches and pains. Pt was also
noted with leukocytosis, CXR with concern for PNA vs atelectasis and follow up CT chest with PE study with neg PE, minimal effusion, fatty liver, atelectasis and suggest bronchitis . No hx EGD but had colonoscopy 04/2023- [facility]- - Seven 4 mm
polyps in the rectum, at the splenic flexure, in the transverse colon and in the ascending colon, removed with a cold snare. bx TA and HP polyps Resected and retrieved. diverticulosis. hbg 15 with drop to 12 and BUN 25 up to 58 after admission and
noted with hypotension with bleeding.
-melena/burgundy stool concern for UGI bleed
-anemia with drop in hbg after admission
-hypotension
-rise in BUN
-Daily NSAID use
-new Afib with RVR with ZIYAD/CV 05/07
-acute HFpEF
other med problems;
-hx colon polyps
-fatty liver per imaging
-obesity with recent Zepbound with nausea, vomiting, abdominal pain
-BPH
05/08/2024 EGD -multiple large linear ulcers throughout the fundus and gastric body with 1 in the antrum. No significant active bleeding but old blood was found. Treated a few mildly oozing spots with BiCap
Likely NSAID induced. He said he ate NSAIDs like candy and was not on a PPI, then we added Eliquis and he bled
05/09/24
--- Will advance diet today to low residue. Low residue is only in case he rebleeds and we need to look sooner than later. Upon discharge normal diet
--Twice daily PPI plus Carafate to help ulcers heal quicker, upon discharge twice daily PPI for 2 months, then once daily indefinitely
--Will need follow-up in our office with Dr. Landon for repeat EGD in 2 months to ensure healing and to ensure there is no neoplasm underneath these multiple large ulcers
--Discussed all of this with the patient
OP work up for fatty liver follow with Dr. Landon in office
--If Eliquis is necessary, would give him another day off Eliquis to help the PPI work to heal these ulcers
-- Upon discharge repeat CBC in 1 week
05/10/24: Hemoglobin is stable with no overt bleeding okay to start Eliquis
-- Continue low residue for now
-- Monitor for today check hemoglobin in the morning and if no further bleeding okay for discharge from a GI perspective
--Twice daily PPI plus Carafate to help ulcers heal quicker, upon discharge twice daily PPI for 2 months, then once daily indefinitely
--Will need follow-up in our office with Dr. Landon for repeat EGD in 2 months to ensure healing and to ensure there is no neoplasm underneath these multiple large ulcers
--Discussed all of this with the patient
OP work up for fatty liver follow with Dr. Landon in office
-- Upon discharge repeat CBC in 1 week
-
Subjective
Subjective
Date of Service: May 10, 2024
Patient denies any nausea vomiting and has had no bowel movements in the last 2 days. Decreased appetite and having difficulty sleeping but no other issues
Objective
Data Reviewed
Laboratory Data:
Laboratory Results
05/10/24 05:24
05/10/24 05:24
Laboratory Results
Phosphorus 2.9 mg/dl (2.5-4.5) 05/10/24 05:24
Magnesium 1.9 mg/dl (1.6-2.3) 05/10/24 05:24
Total Bilirubin 1.2 mg/dl (0.2-1.3) 05/08/24 03:19
AST 28 U/L (17-59) 05/08/24 03:19
ALT 30 U/L (0-50) 05/08/24 03:19
Alkaline Phosphatase 35 U/L (38-126) L 05/08/24 03:19
Lipase Cancelled 05/05/24 21:28
Vital Signs and I&O:
Vital Signs
Temp Pulse Resp BP Pulse Ox
98.2 F 87 25 125/52 99
05/10/24 07:58 05/10/24 08:12 05/10/24 04:00 05/10/24 08:12 05/10/24 04:00
I&O
05/09/24 05/10/24 05/11/24
06:59 06:59 06:59
Intake Total 1460 / 1460 480 / 480
Output Total 1900 / 1900 1230 / 1230
Balance -440 / -440 -750 / -750
Physical Exam
Physical Exam
HEENT: Anicteric
GI: Soft, Non Distended and Non Tender
Extremities: No Edema
Neuro: Non Focal
--- NOTE | 2024-05-10 12:16 | W.PN.HOSP.TC ---
Today's Communication/Plan
-
Assessment / Plan
Assessment / Plan
Gen-AAOx3, NAD
HEENT-NC, AT, anicteric, clear oral mm
Neck-supple
CV-normal sinus rhythm, HR around 90, no M
Lungs-clear B/L
Abd-soft, NT, ND
Musculoskeletal-no edema, no deformity
Skin-warm and dry
Neuro-grossly non-focal
Psych-calm, cooperative
Mr. Jenkins is a 69-year-old male with a medical history of enlarged prostate and obesity who presented with nausea and vomiting and shortness of breath. His symptoms began after taking Zepbound on 04/26 for weight loss. He followed up with his
PCP who found that he was in A-fib with RVR and referred him to the ED. EKG in the ED confirmed A-fib with RVR. He was started on Cardizem drip. CT imaging in the ED showed no evidence pulmonary embolism but did show minimal left pleural effusion
and possible bronchitis. He has been admitted for further evaluation and management of new onset A-fib with RVR.
GI bleed:
-Status post upper endoscopy 05/08 with finding of multiple linear gastric ulcers, tolerated procedure well
-Restarting Eliquis today 05/10, will monitor for bleeding
-Continue p.o. pantoprazole twice daily and Carafate, will need to continue twice daily PPI for 2 months then once daily indefinitely
-Appreciate GI input, patient will need to follow-up outpatient GI for repeat EGD in 2 months
-Tolerating low residue diet
A-fib with RVR:
-New onset A-fib
-Initially unsuccessful cardioversion 05/07 despite multiple shocks, started on amiodarone, converted to normal sinus rhythm around 6 AM morning 05/08
-Continuing amiodarone 400 mg p.o. twice daily
-Restarting Eliquis today 05/10
-Diltiazem discontinued
-Will follow-up further recommendations from cardiology
Dyspnea on exertion:
-Patient reports dyspnea with exertion and orthopnea for the past few weeks prior to admission
-Had been diuresing with IV Lasix twice daily however had held diuresis due to GI bleeding with hypotension
-Hypotension now resolved, given 1 dose of IV Lasix and will monitor
-Supplemental oxygen as needed, wean as able
Leukocytosis:
-Improving
-Likely acute stress reaction secondary to A-fib with RVR and GI bleeding, no overt signs of infection
-Received a dose of antibiotics initially in the ED, will continue to monitor off of antibiotics for now
CODE STATUS: Full code
Anticipated Discharge: 24 - 48 hours
Subjective/Interval History
-
Date of Service: May 10, 2024
Patient was seen and examined at bedside this morning. Feeling well, although reports getting very poor sleep last night. Hemoglobin remained stable. Plan to restart Eliquis today.
Objective Data
-
Labs:
Laboratory Results
05/10/24
05:24
WBC 18.9 H
Hgb 9.1 L
Hct 26.8 L
Plt Count 235
Sodium 134 L
Potassium 4.5
Chloride 94 L
Carbon Dioxide 33 H
BUN 27 H
Creatinine 1.0
Glucose 126 H
Calcium 8.7
Vital Signs:
Vital Signs
Temp Pulse Resp BP Pulse Ox
98.2 F 87 25 125/52 99
05/10/24 07:58 05/10/24 08:12 05/10/24 04:00 05/10/24 08:12 05/10/24 04:00
I&O
05/09/24 05/10/24 05/11/24
06:59 06:59 06:59
Intake Total 1460 / 1460 480 / 480
Output Total 1900 / 1900 1230 / 1230
Balance -440 / -440 -750 / -750
Review of Systems
-
History Source: Patient
All other systems: Reviewed and negative
Physical Exam
-
General: No Apparent Distress
[2024-05-10 12:57] LABS: NT-proBNP 110 pg/ml
--- NOTE | 2024-05-10 13:13 | VATNOTE ---
During routine assessment, palpable cord noted, seems smaller than previously noted. Per pt it is a little sore but not bothersome. Heat applied.
--- NOTE | 2024-05-10 13:46 | W.PN.CARDCBS ---
Today's Communication / Plan
-
Continue amiodarone
Discussed with GI may proceed to resume oral anticoagulation and follow cautiously. Apixaban started.
EKG ordered. Reassess QT interval in the AM.
No further Lasix.
Impression / Plan
-
PCP: Shannon Giraldo
Card: None prior to admission
Impression:
MARX and nausea on admission 05/05/24
Afib with RVR
Newly diagnosed paroxysmal Afib
Acute HFpEF
BPH
Obese, BMI 37.9
Former emt intermediate smoker - suspect undiagnosed lung disease
Transesophageal echo 05/07/2024 with EF 55 to 60%. Normal RV. Mild MR. Mild TR with PA pressure 24 mmHg
Plan:
He presented with atrial fibrillation with rapid ventricular response and decompensated heart failure with preserved ejection fraction. He then developed GI bleed, hypotension and rising WBC
Rhythm currently remains stable with sinus rhythm. Telemetry reviewed.
-For rapid atrial fibrillation ZIYAD/DCCV performed 05/07/24, briefly in sinus rhythm, but quickly converted back to AFib RVR. Subsequently converted at 6AM 05/08.
-He continues in sinus rhythm and continues loaded with amiodarone 400mg BID to maintain NSR.
-Discussed with GI may proceed to resume oral anticoagulation and follow cautiously. Apixaban started.
-On amiodarone. Reassess QT interval in the AM.
-He initially presented with hypoxia which I suspect is multifactorial and in part due to CHF but also likely undiagnosed lung disease
- 20 mg of Lasix given 05/09/2024
-proBNP is now 110. He is feeling better. Hold Lasix for now.
-Wean O2 as able
Increase activity as tolerates.
Patient [facility]24 form his PCPs office with a new diagnosis of A-fib with RVR and cardiology is now consulted. Patient was seeing his PCP yesterday because of nausea and MARX that seem to have started around the time that he started
taking Zepbound as a new weight loss medication about 1 to 2 weeks ago. Patient has been extremely nauseous and has had a dramatic decrease in p.o. intake. He also noticed MARX, but denies any orthopnea, edema or resting SOB. He performed a COVID
test at home before he saw his PCP yesterday that was negative. In the PCPs office he was noted to be in A-fib with RVR and no known history of A-fib. Patient was sent to ER where he had a CT of the chest that showed no evidence of PE. There
was a minimal posterior left pleural effusion and no suggestion of pulmonary edema. His proBNP was 1450. Patient was given Lasix 40 mg IV x 1 and does not feel any symptomatic improvement. Patient complains of ongoing sore throat and a repeat
COVID swab was negative and influenza screening was negative as well. He says throat pain is worse with swallowing. Denies chest pain or palpitations.
Progress Note - Patient Access Specialist
Subjective
Date of Service: May 10, 2024
He is feeling better today. He denies chest pain and palpitations.
Objective
Labs:
05/10/24 05:24
05/10/24 05:24
Labs
Hgb 9.1 g/dL (13.0-18.0) L 05/10/24 05:24
Hct 26.8 % (39.0-52.0) L 05/10/24 05:24
Plt Count 235 10^3/uL (130-400) 05/10/24 05:24
Sodium 134 mmol/L (135-145) L 05/10/24 05:24
Potassium 4.5 mmol/L (3.5-5.1) 05/10/24 05:24
BUN 27 mg/dl (9-20) H 05/10/24 05:24
Creatinine 1.0 mg/dL (0.7-1.3) 05/10/24 05:24
Glucose 126 mg/dl (70-99) H 05/10/24 05:24
Vital Signs and I&O:
Vital Signs
Temp Pulse Resp BP Pulse Ox
98.2 F 87 25 125/52 99
05/10/24 11:31 05/10/24 08:12 05/10/24 04:00 05/10/24 08:12 05/10/24 04:00
Vital Signs
Temp Pulse Resp BP Pulse Ox
98.2 F 87 25 125/52 99
05/10/24 11:31 05/10/24 08:12 05/10/24 04:00 05/10/24 08:12 05/10/24 04:00
Intake & Output
05/08/24 05/09/24 05/10/24 05/11/24
06:59 06:59 06:59 06:59
Intake Total 490 / 490 1460 / 1460 480 / 480
Output Total 2625 / 2625 1900 / 1900 1230 / 1230 400 / 400
Balance -2135 / -2135 -440 / -440 -750 / -750 -400 / -400
Physical Exam
Physical Exam
General: Well developed, well nourished in NAD.
Heart: Non displaced PMI, RRR, no murmurs, No S3, S4, no rubs.
Lungs: Coarse breath sounds. Oxygen in place.
Extremities: No clubbing, cyanosis or edema bilaterally.
Neuro: Grossly nonfocal, awake, alert and oriented x3.
[2024-05-10] MEDS: FLOMAX 0.8 MG PO (18:17)
[2024-05-10] MEDS: PROSCAR 5 MG PO (18:19)
[2024-05-10] MEDS: ELIQUIS 5 MG PO (20:11)
[2024-05-11] VITALS (15 sets, daily range): BP systolic 80–146; BP diastolic 47–86; BMI 35.2
[2024-05-11] MEDS: TYLENOL 650 MG PO (01:15)
--- NOTE | 2024-05-11 02:51 | PTCARENOTE ---
Pt felt like he needed to have a BM. Pt able to sit on side of bed and stand with out dizziness, BP taken. BSCx1. Pt was unable to have a BM but did move gas. Pt remains on 6L at HS while sleeping to keep SPO2 above 92%. Assessment care and vitals
as charted.
[2024-05-11 05:30] LABS: % Basophils 0.3 % (0-2); % Eosinophils 1.7 % (0-6); % Immature Granulocytes 0.8 % (0-0.5); % Lymphocytes 13.9 % (20.5-51.1); % Neutrophils 77.3 % (42.2-75.2); Absolute Eosinophils 0.3 10^3/uL (0-0.7); Absolute Immature Granulocytes 0.1 10^3/uL (0-0.05); Absolute Lymphocytes 2.2 10^3/uL (1.2-3.4); Absolute Neutrophils 12.2 10^3/uL (1.4-6.5); Hematocrit 24.5 % (39.0-52.0); Hemoglobin 8.4 g/dL (13.0-18.0); Mean Corp Hgb Conc. 34.3 g/dL (33.0-37.0); Mean Corpuscular Hgb 31.5 pg (27.0-31.0); Mean Corpuscular Volume 91.8 fL (80.0-94.0); Mean Platelet Volume 10.9 fL (7.4-10.4); Nucleated Red Blood Cells % 0 % (-); Platelet Count 227 10^3/uL (130-400); Red Blood Cell Count 2.67 10^6/uL (4.70-6.10); Red Cell Dist. Width 13.2 % (11.5-14.5); White Blood Cell Count 15.7 10^3/uL (4.8-10.8)
[2024-05-11 06:00] LABS: Blood Urea Nitrogen 25 mg/dl (9-20); Calcium 8.6 mg/dl (8.4-10.2); Carbon Dioxide 33 mmol/L (22-30); Chloride 93 mmol/L (98-107); Estimated Creatinine Clearance 114 ml/min; Glucose 118 mg/dl (70-99); Magnesium 1.9 mg/dl (1.6-2.3); Phosphorus 2.9 mg/dl (2.5-4.5); Potassium 4.3 mmol/L (3.5-5.1); Sodium 133 mmol/L (135-145); eGFR > 60.00
[2024-05-11] MEDS: BenGay-Like 1 APPLIC TOPICAL ×3 (08:27→19:59)
[2024-05-11] MEDS: CARAFATE SUSPENSION 1 GM PO ×4 (08:28→22:37)
[2024-05-11] MEDS: ELIQUIS 5 MG PO ×2 (08:28→20:01)
[2024-05-11] MEDS: PROTONIX 40 MG PO ×2 (08:28→20:03)
[2024-05-11] MEDS: PACERONE 400 MG PO ×3 (08:28→22:29)
--- NOTE | 2024-05-11 11:48 | W.PN.GI.CBS2 ---
Addendum entered and electronically signed by Karo Taylor DO 05/11/24 18:15:
Patient seen and examined independently of [employer]. I agree with her note with my additions below
Joseph has no complaints. Still has not had a bowel movement since admission. His heart rates did go back up today into the 120s. Cardiology is adjusting some of his medications
His hemoglobin had a slight drop but BUN is also improving.
Hemoglobin is pending for this evening
I did resume Eliquis yesterday evening in the setting of his recent cardioversion and increased risk
I did speak to Dr. Ponce from cardiology and says that if needed we can hold the Eliquis for a little longer
Currently is still on
Continue twice daily PPI sucralfate for now. Upon discharge twice daily PPI twice daily for 2 months then once daily indefinitely -he had significant ulcerations throughout the fundus and gastric body and will definitely need repeat endoscopy
outpatient
-- Patient follows with Dr. Prabhakar
Original Note:
Today's Communication / Plan
-
05/11/24 some drop in hbg to 8.4 was 12 05/08 but BUN cont to decline at 25
some tachycardia noted on exam
last stool 05/08
Eliquis resumed 2/2 PM
close watch of stool and hbg will repeat hbg later today and in AM
cont low residue diet
Twice daily PPI plus Carafate to help ulcers heal quicker, upon discharge twice daily PPI for 2 months, then once daily indefinitely
left follow up info on discharge -- pt states he will call to scheduled
OP work up for fatty liver follow with Dr. Prabhakar in office
Assessment / Plan
-
Pt is a 69yo with hx BPH, daily NSAID use for aches and pain, and obesity. In review with patient he has some intentional wt loss last year. He took Semaglutide about a year ago with nausea and vomiting. He decided to try medication again and
started Tirzaepartide about 1 weeks ago. He began with nausea/vomiting and abdominal pain. He went to PCP and was noted with also shortness of breath, fatigue and sore throat. He was noted with new afib and sent to ER. he was seen by
cardiology on admission and placed on Eliquis and also noted acute HFpEF. s/p ZIYAD/CV 05/07. After 3 doses noted with onset of loose black/burgundy stool with multiple stool 05/07-05/08. He admits to daily NSAID use for aches and pains. Pt was also
noted with leukocytosis, CXR with concern for PNA vs atelectasis and follow up CT chest with PE study with neg PE, minimal effusion, fatty liver, atelectasis and suggest bronchitis . No hx EGD but had colonoscopy 04/2023- dip[place]- - Seven 4 mm
polyps in the rectum, at the splenic flexure, in the transverse colon and in the ascending colon, removed with a cold snare. bx TA and HP polyps Resected and retrieved. diverticulosis. hbg 15 with drop to 12 and BUN 25 up to 58 after admission and
noted with hypotension with bleeding.
-melena/burgundy stool concern for UGI bleed
-anemia with drop in hbg after admission
-hypotension
-rise in BUN with bleeding
-Daily NSAID use
-new Afib with RVR with ZIYAD/CV 05/07
-acute HFpEF
other med problems;
-hx colon polyps
-fatty liver per imaging
-obesity with recent Zepbound with nausea, vomiting, abdominal pain
-BPH
05/08/2024 EGD -multiple large linear ulcers throughout the fundus and gastric body with 1 in the antrum. No significant active bleeding but old blood was found. Treated a few mildly oozing spots with BiCap
Likely NSAID induced. He said he ate NSAIDs like candy and was not on a PPI, then we added Eliquis and he bled
05/09/24
--- Will advance diet today to low residue. Low residue is only in case he rebleeds and we need to look sooner than later. Upon discharge normal diet
--Twice daily PPI plus Carafate to help ulcers heal quicker, upon discharge twice daily PPI for 2 months, then once daily indefinitely
--Will need follow-up in our office with Dr. Prabhakar for repeat EGD in 2 months to ensure healing and to ensure there is no neoplasm underneath these multiple large ulcers
--Discussed all of this with the patient
OP work up for fatty liver follow with Dr. Prabhakar in office
--If Eliquis is necessary, would give him another day off Eliquis to help the PPI work to heal these ulcers
-- Upon discharge repeat CBC in 1 week
05/10/24: Hemoglobin is stable with no overt bleeding okay to start Eliquis
-- Continue low residue for now
-- Monitor for today check hemoglobin in the morning and if no further bleeding okay for discharge from a GI perspective
--Twice daily PPI plus Carafate to help ulcers heal quicker, upon discharge twice daily PPI for 2 months, then once daily indefinitely
--Will need follow-up in our office with Dr. Prabhakar for repeat EGD in 2 months to ensure healing and to ensure there is no neoplasm underneath these multiple large ulcers
--Discussed all of this with the patient
OP work up for fatty liver follow with Dr. Prabhakar in office
-- Upon discharge repeat CBC in 1 week
05/11/24 some drop in hbg to 8.4 was 12 05/08 but BUN cont to decline at 25
some tachycardia noted on exam
last stool 05/08
Eliquis resumed 2/2 PM
close watch of stool and hbg will repeat hbg later today and in AM
cont low residue diet
Twice daily PPI plus Carafate to help ulcers heal quicker, upon discharge twice daily PPI for 2 months, then once daily indefinitely
left follow up info on discharge -- pt states he will call to scheduled
OP work up for fatty liver follow with Dr. Prabhakar in office
-
Subjective
Subjective
Date of Service: May 11, 2024
05/08 last stool burgundy on low residue diet
Objective
Data Reviewed
Laboratory Data:
Laboratory Results
05/11/24 04:40
05/11/24 04:40
Laboratory Results
Phosphorus 2.9 mg/dl (2.5-4.5) 05/11/24 04:40
Magnesium 1.9 mg/dl (1.6-2.3) 05/11/24 04:40
Total Bilirubin 1.2 mg/dl (0.2-1.3) 05/08/24 03:19
AST 28 U/L (17-59) 05/08/24 03:19
ALT 30 U/L (0-50) 05/08/24 03:19
Alkaline Phosphatase 35 U/L (38-126) L 05/08/24 03:19
Lipase Cancelled 05/05/24 21:28
Vital Signs and I&O:
Vital Signs
Temp Pulse Resp BP Pulse Ox
98.1 F 79 21 108/47 92
05/11/24 07:05 05/11/24 08:00 05/11/24 08:00 05/11/24 08:00 05/11/24 08:36
I&O
05/10/24 05/11/24 05/12/24
06:59 06:59 06:59
Intake Total 480 / 480 360 / 360
Output Total 1230 / 1230 650 / 650 350 / 350
Balance -750 / -750 -290 / -290 -350 / -350
Physical Exam
Physical Exam
HEENT: Anicteric
Cardiology: Other (tachy )
Pulmonary: Clear
GI: Soft, Non Distended and Non Tender
Neuro: Non Focal
--- NOTE | 2024-05-11 13:27 | W.PN.HOSP.TC ---
Today's Communication/Plan
-
Continue PPI twice daily and Carafate
Trend CBC on Eliquis, repeat CBC this PM
Consideration of rate controlling agent per cards
Assessment / Plan
Assessment / Plan
Mr. Jenkins is a 69-year-old male with a medical history of enlarged prostate and obesity who presented with nausea and vomiting and shortness of breath. His symptoms began after taking Zepbound on 04/26 for weight loss. He followed up with his
PCP who found that he was in A-fib with RVR and referred him to the ED. EKG in the ED confirmed A-fib with RVR. He was started on Cardizem drip. CT imaging in the ED showed no evidence pulmonary embolism but did show minimal left pleural effusion
and possible bronchitis. He has been admitted for further evaluation and management of new onset A-fib with RVR.
#Acute Blood loss Anemia
#Upper GI bleed due to linear gastric ulcers
-Status post upper endoscopy 05/08 with finding of multiple linear gastric ulcers likely from frequent NSAID use
-Has since been transition from IV to oral pantoprazole twice daily with Carafate, will need 8 weeks of twice daily PPI
-Hemoglobin was near 12 prior to arrival, down to 8.4 as of this morning
-GI recommending outpatient GI for repeat EGD in 2 months
-Remains on low residue diet
-Repeat CBC this evening, hemoglobin goal >7
#AF with RVR
-New onset A-fib, [id number] score >2; s/p DCCV on 05/07 with sinus rhythm achieved
-Was started on amiodarone load of 400 mg twice daily and Eliquis 5 mg twice daily
-As of this morning seems to have reverted to AF with RVR
-Status post diltiazem drip, currently not on any rate controlling agent
-Cardiology appreciated, consider rate controlling agent and possible ablation
#Acute hypoxemic respiratory insufficiency
-Patient reports dyspnea with exertion and orthopnea for the past few weeks prior to admission
-Had been diuresing with IV Lasix twice daily however had held diuresis due to GI bleeding with hypotension
-Received 1 dose of IV Lasix; currently on room air with SpO2 92%
-SpO2 goal >90%
-Resolved
#Leukocytosis
-Improving; Likely acute stress reaction secondary to A-fib with RVR and GI bleeding, no overt signs of infection
-Received a dose of antibiotics initially in the ED, will continue to monitor off of antibiotics for now
-Continue to trend CBC and temperature curve for now
#Nausea and vomiting
-Likely ADR from recent initiation of GLP-1 agonist
-No current symptoms, will need to follow-up with PCP at [place] for other options
#BPH
-Home medications include tamsulosin and finasteride nightly
-No signs of urine retention at this time
DVT prophylaxis: SCDs
Diet: Low residue
CODE STATUS: Full code
Anticipated Discharge: 24 - 48 hours
Subjective/Interval History
-
Date of Service: May 11, 2024
Seen and examined at the bedside. No acute events reported overnight. Tachycardic and in AF this morning, on 2 L via NC, otherwise hemodynamically stable and afebrile.
He states he feels generally well. Did not realize he was back into atrial fibrillation. Hemoglobin dropped from 9.1-8.4 after being resumed on Eliquis.
Denies any new complaints today. States he has not had a bowel movement in the last day
Objective Data
-
Labs:
Laboratory Results
05/11/24 05/11/24
04:40 16:00
WBC 15.7 H
Hgb 8.4 L Pending
Hct 24.5 L Pending
Plt Count 227
Sodium 133 L
Potassium 4.3
Chloride 93 L
Carbon Dioxide 33 H
BUN 25 H
Creatinine 0.9
Glucose 118 H
Calcium 8.6
Vital Signs:
Vital Signs
Temp Pulse Resp BP Pulse Ox
98.1 F 79 21 108/47 92
05/11/24 07:05 05/11/24 08:00 05/11/24 08:00 05/11/24 08:00 05/11/24 08:36
I&O
05/10/24 05/11/24 05/12/24
06:59 06:59 06:59
Intake Total 480 / 480 360 / 360
Output Total 1230 / 1230 650 / 650 350 / 350
Balance -750 / -750 -290 / -290 -350 / -350
Review of Systems
-
History Source: Patient
All other systems: Reviewed and negative
Physical Exam
-
General: Well Developed, No Apparent Distress, Comfortable and Obese
HEENT: Normocephalic, Atraumatic, Moist Mucous Membranes and Anicteric
Respiratory: Clear to Auscultation and Non Labored Respirations
Cardiac: S1/S2, Irregular Rhythm and Tachycardic; Negative Murmur, Rub or Gallop
GI: Soft, Nontender, Nondistended and Normal Bowel Sounds
Musculoskeletal: No Clubbing, No Cyanosis and No Edema
Skin: Warm, Dry and Normal Turgor; Negative Rash
Neuro: AO x 3 and Nonfocal/Grossly Intact
Psych: Calm
Data Reviewed
-
Labs: Labs Reviewed by me and Discussed with Patient
--- NOTE | 2024-05-11 13:59 | W.PN.CARDCBS ---
Today's Communication / Plan
-
Increase amiodarone to 400 mg 3 times daily given recurrence atrial arrhythmia, probable slow atrial flutter
Continue Eliquis for now, may need to discontinue
We will keep n.p.o. in the morning
No furosemide for now, proBNP had dropped to 110
Impression / Plan
-
PCP: Shannon Giraldo
Card: None prior to admission
Impression:
MARX and nausea on admission 05/05/24
Afib with RVR
GI bleed with gastric ulcers and anemia
Newly diagnosed paroxysmal Afib
Acute HFpEF
BPH
Obese, BMI 37.9
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
Transesophageal echo 05/07/2024 with EF 55 to 60%. Normal RV. Mild MR. Mild TR with PA pressure 24 mmHg
Plan:
He presented initially with atrial fibrillation and rapid ventricular response, HFpEF and following ZIYAD cardioversion atrial fibrillation recurred, then he spontaneously reverted to sinus rhythm, now on amiodarone. Unfortunately, atrial arrhythmia
has recurred, current EKG I suspect is atrial flutter with 2-1 conduction, cannot exclude atrial tachycardia.
Because of a recurrence of what I think is atrial flutter, I will increase amiodarone to 400 mg 3 times a day. If he does not convert to sinus rhythm we will need to reconsider options. Currently her heart rate has dropped to about 100 since EKG
was 124.
He is currently anticoagulated on Eliquis, hemoglobin has drifted down, GI is willing to continue anticoagulation at present but if hemoglobin drops further we should discontinue apixaban.
Despite all of the above on exam today I thought he looked reasonably well.
We will continue to follow hemoglobin.
QT interval is satisfactory, I suspect that computer reading is inaccurate given that P wave is buried in the terminal portion of T wave
Patient came to [facility] 05/06/2024 form his PCPs office with a new diagnosis of A-fib with RVR and cardiology is now consulted. Patient was seeing his PCP yesterday because of nausea and MARX that seem to have started around the time that he started
taking Zepbound as a new weight loss medication about 1 to 2 weeks ago. Patient has been extremely nauseous and has had a dramatic decrease in p.o. intake. He also noticed MARX, but denies any orthopnea, edema or resting SOB. He performed a COVID
test at home before he saw his PCP yesterday that was negative. In the PCPs office he was noted to be in A-fib with RVR and no known history of A-fib. Patient was sent to ER where he had a CT of the chest that showed no evidence of PE. There
was a minimal posterior left pleural effusion and no suggestion of pulmonary edema. His proBNP was 1450. Patient was given Lasix 40 mg IV x 1 and does not feel any symptomatic improvement. Patient complains of ongoing sore throat and a repeat
COVID swab was negative and influenza screening was negative as well. He says throat pain is worse with swallowing. Denies chest pain or palpitations.
Progress Note - [facility]
Subjective
Date of Service: May 11, 2024:
69-year-old man with new onset atrial fibrillation after starting tirzepatide, admitted May 06 with proBNP of 1450, with subsequent GI bleed and multiple linear ulcers in gastric body and fundus by EGD on May 08. Had ZIYAD cardioversion on
May 07, was in sinus rhythm, then AF, then sinus and subsequently started on amiodarone. Was in sinus rhythm until this morning.
PMH: BPH, obesity class II, probable fatty liver, possible underlying and undiagnosed COPD
Medications: Proscar 5 mg a day, tamsulosin 0.8 mg daily, amiodarone 400 mg twice daily, pantoprazole 40 mg twice daily, sucralfate, apixaban 5 mg twice daily
108/47, pulse 79 as of 8 AM, now 120 weight is at 134.7 kg, head neck exam unremarkable, lungs are clear, tachycardic but regular rhythm, JVD okay, modest edema edema
Last hemoglobin 8.4, white count 15.7, platelets 227, sodium 133, BUN/creatinine 25 and 0.9, proBNP was 110 on May 10, was 1450 on the , potassium 4.3
Objective
Labs:
05/11/24 04:40
Labs
Hgb 8.4 g/dL (13.0-18.0) L 05/11/24 04:40
Hct 24.5 % (39.0-52.0) L 05/11/24 04:40
Plt Count 227 10^3/uL (130-400) 05/11/24 04:40
Sodium 133 mmol/L (135-145) L 05/11/24 04:40
Potassium 4.3 mmol/L (3.5-5.1) 05/11/24 04:40
BUN 25 mg/dl (9-20) H 05/11/24 04:40
Creatinine 0.9 mg/dL (0.7-1.3) 05/11/24 04:40
Glucose 118 mg/dl (70-99) H 05/11/24 04:40
Vital Signs and I&O:
Vital Signs
Temp Pulse Resp BP Pulse Ox
36.7 C 79 21 108/47 92
05/11/24 07:05 05/11/24 08:00 05/11/24 08:00 05/11/24 08:00 05/11/24 08:36
Vital Signs
Temp Pulse Resp BP Pulse Ox
36.7 C 79 21 108/47 92
05/11/24 07:05 05/11/24 08:00 05/11/24 08:00 05/11/24 08:00 05/11/24 08:36
Intake & Output
05/09/24 05/10/24 05/11/24 05/12/24
07:59 07:59 07:59 07:59
Intake Total 1460 / 1460 480 / 480 360 / 360
Output Total 1900 / 1900 1230 / 1230 1000 / 1000
Balance -440 / -440 -750 / -750 -640 / -640
Physical Exam
Physical Exam
See above
--- NOTE | 2024-05-11 14:44 | PTCARENOTE ---
Pt's HR noted to be elevated to the 120's at rest. Dr. SHERRY Ponce notified, EKG obtained.
[2024-05-11] MEDS: BenGay-Like TOPICAL (17:27)
[2024-05-11] MEDS: PROSCAR 5 MG PO (17:27)
[2024-05-11] MEDS: FLOMAX 0.8 MG PO (17:28)
--- NOTE | 2024-05-11 18:12 | VATNOTE ---
Venous cord still palpable in pt's R antecubital fossa. Pt with only mild 'soreness' with palpation. Heat applied.
[2024-05-11 19:48] LABS: Hematocrit 25.7 % (39.0-52.0); Hemoglobin 8.7 g/dL (13.0-18.0)
--- NOTE | 2024-05-11 23:45 | PTCARENOTE ---
Pt received from roger RN. Pt [id number]. Pleasant and agreeable to care. HR remaining in the 120's. Pt admits to feeling 'worn out'. pt provided cup and tablet for dentures to soak overnight. using urinal. pt expresses desire to work with PT during
the day tomorrow. Assessment as documented. Call light in reach.
[2024-05-12] VITALS (24 sets, daily range): BP systolic 79–136; BP diastolic 50–88; PULSE 80–105; O2SAT 92; BMI 35.1
[2024-05-12] MEDS: NSS 250 IV (04:07)
--- NOTE | 2024-05-12 04:10 | PTCARENOTE ---
pt Bp reading softer than his baseline. Bp 86/59(68). Cuff switched out, taken on opposite arm, pt flat on back. repeat 82/68(74). JUSTINA Epstein informed. order received for 250 nss bolus. medication admin. see jun.
[2024-05-12 04:35] LABS: Calcium 8.5 mg/dl (8.4-10.2); Carbon Dioxide 35 mmol/L (22-30); Chloride 93 mmol/L (98-107); Estimated Creatinine Clearance 103 ml/min; Glucose 115 mg/dl (70-99); Phosphorus 2.7 mg/dl (2.5-4.5); Potassium 4.1 mmol/L (3.5-5.1); Sodium 134 mmol/L (135-145); eGFR > 60.00
[2024-05-12 04:45] LABS: Blood Urea Nitrogen 21 mg/dl (9-20)
[2024-05-12 05:14] LABS: % Basophils 0.4 % (0-2); % Eosinophils 1.3 % (0-6); % Immature Granulocytes 1.1 % (0-0.5); % Lymphocytes 13.8 % (20.5-51.1); % Monocytes 5.7 % (1.7-9.3); % Neutrophils 77.7 % (42.2-75.2); Absolute Basophils 0.1 10^3/uL (0-0.2); Absolute Eosinophils 0.2 10^3/uL (0-0.7); Absolute Immature Granulocytes 0.2 10^3/uL (0-0.05); Absolute Monocytes 0.8 10^3/uL (0.1-0.6); Hematocrit 25.1 % (39.0-52.0); Hemoglobin 8.5 g/dL (13.0-18.0); Mean Corp Hgb Conc. 33.9 g/dL (33.0-37.0); Mean Corpuscular Hgb 31.3 pg (27.0-31.0); Mean Corpuscular Volume 92.3 fL (80.0-94.0); Mean Platelet Volume 10.1 fL (7.4-10.4); Nucleated Red Blood Cells % 0 % (-); Platelet Count 276 10^3/uL (130-400); Red Blood Cell Count 2.72 10^6/uL (4.70-6.10); Red Cell Dist. Width 13.2 % (11.5-14.5); White Blood Cell Count 14.1 10^3/uL (4.8-10.8)
--- NOTE | 2024-05-12 06:20 | W.PN.GI.CBS2 ---
Today's Communication / Plan
-
Please see assessment and plan for details.
Assessment / Plan
-
1. GI bleed: Secondary to multiple gastric ulcers, likely NSAID induced, pathology negative for H. pylori, status post bipolar cautery. His hemoglobin has been stable for the past few days. He does have some tachycardia/hypotension this morning,
though again no bowel movements and no other symptoms, BUN decreasing, current active bleeding seems less likely. At this point we will repeat CBC later today, continue PPI twice daily and Carafate. His Eliquis was restarted and will continue
close observation for now. Will plan repeat EGD in around 6 weeks as an outpatient with Dr. Prabhakar to ensure healing.
Subjective
Subjective
Date of Service: May 12, 2024
Patient feeling okay, no bowel movements overnight or for the past 3 days. No nausea or vomiting, no lightheadedness. He was relatively more tachycardic and hypotensive this morning. He denies any chest pain or shortness of breath.
Objective
Data Reviewed
Laboratory Data:
Laboratory Results
05/12/24 03:57
05/12/24 03:57
Laboratory Results
Phosphorus 2.7 mg/dl (2.5-4.5) 05/12/24 03:57
Magnesium 2.0 mg/dl (1.6-2.3) 05/12/24 03:57
Total Bilirubin 1.2 mg/dl (0.2-1.3) 05/08/24 03:19
AST 28 U/L (17-59) 05/08/24 03:19
ALT 30 U/L (0-50) 05/08/24 03:19
Alkaline Phosphatase 35 U/L (38-126) L 05/08/24 03:19
Lipase Cancelled 05/05/24 21:28
Vital Signs and I&O:
Vital Signs
Temp Pulse Resp BP Pulse Ox
98.3 F 118 20 92/62 99
05/12/24 03:00 05/12/24 05:00 05/12/24 05:00 05/12/24 05:00 05/12/24 05:00
I&O
05/10/24 05/11/24 05/12/24
06:59 06:59 06:59
Intake Total 480 / 480 360 / 360
Output Total 1230 / 1230 650 / 650 825 / 825
Balance -750 / -750 -290 / -290 -825 / -825
Physical Exam
Physical Exam
General: NAD
Abdomen: normal bowel sounds, soft, no tenderness, no masses or bruits, no ascites
--- NOTE | 2024-05-12 07:48 | W.PN.CARDCBS ---
Addendum entered and electronically signed by Tj Ponce MD 05/12/24 08:17:
Today's plan (what is listed below is yesterday's plan)
He appears relatively stable, but remains in what is atrial flutter with predominant 2-1 conduction. He feels vaguely unwell, and my concern is that he will develop recurrent acute HFpEF if heart rate remains 120.
He is relatively hypotensive which will make rate control difficult. He did not have left atrial appendage thrombus at the time of ZIYAD and has been anticoagulated since then. He was probably in atrial fibrillation for roughly 1 week without
anticoagulation prior to admission.
Regarding gastric ulcers and anemia, his hemoglobin is relatively stable. He is still on Eliquis. I think it will be important to reestablish sinus rhythm if possible in the event that Eliquis needs to be discontinued for anemia. He has been
anticoagulated since his transesophageal echo.
Although risk of recurrent atrial fibrillation following cardioversion is real, I think the best strategy is to reestablish sinus rhythm now. He should ultimately be referred for ablation but until that time it would be preferable to maintain sinus.
Explained risks and benefits, as well as possibility of recurrent atrial arrhythmia following cardioversion. He is agreeable to proceed.
Original Note:
Today's Communication / Plan
-
Repeat cardioversion
Impression / Plan
-
PCP: Shannon Giraldo
Card: None prior to admission
Impression:
MARX and nausea on admission 05/05/24
Afib with RVR
GI bleed with gastric ulcers and anemia
Newly diagnosed paroxysmal Afib
Acute HFpEF
BPH
Obese, BMI 37.9
Former [employer] smoker - suspect undiagnosed COPD
Transesophageal echo 05/07/2024 with EF 55 to 60%. Normal RV. Mild MR. Mild TR with PA pressure 24 mmHg
Plan:
He presented initially with atrial fibrillation and rapid ventricular response, HFpEF and following ZIYAD cardioversion atrial fibrillation recurred, then he spontaneously reverted to sinus rhythm, now on amiodarone. Unfortunately, atrial arrhythmia
has recurred, current EKG I suspect is atrial flutter with 2-1 conduction, cannot exclude atrial tachycardia.
Because of a recurrence of what I think is atrial flutter, I will increase amiodarone to 400 mg 3 times a day. If he does not convert to sinus rhythm we will need to reconsider options. Currently her heart rate has dropped to about 100 since EKG
was 124.
He is currently anticoagulated on Eliquis, hemoglobin has drifted down, GI is willing to continue anticoagulation at present but if hemoglobin drops further we should discontinue apixaban.
Despite all of the above on exam today I thought he looked reasonably well.
We will continue to follow hemoglobin.
QT interval is satisfactory, I suspect that computer reading is inaccurate given that P wave is buried in the terminal portion of T wave
Patient came to [facility] 05/06/2024 form his PCPs office with a new diagnosis of A-fib with RVR and cardiology is now consulted. Patient was seeing his PCP yesterday because of nausea and MARX that seem to have started around the time that he started
taking Zepbound as a new weight loss medication about 1 to 2 weeks ago. Patient has been extremely nauseous and has had a dramatic decrease in p.o. intake. He also noticed MARX, but denies any orthopnea, edema or resting SOB. He performed a COVID
test at home before he saw his PCP yesterday that was negative. In the PCPs office he was noted to be in A-fib with RVR and no known history of A-fib. Patient was sent to ER where he had a CT of the chest that showed no evidence of PE. There
was a minimal posterior left pleural effusion and no suggestion of pulmonary edema. His proBNP was 1450. Patient was given Lasix 40 mg IV x 1 and does not feel any symptomatic improvement. Patient complains of ongoing sore throat and a repeat
COVID swab was negative and influenza screening was negative as well. He says throat pain is worse with swallowing. Denies chest pain or palpitations.
Progress Note - Drug Safety Associate
Subjective
Date of Service: May 12, 2024:
69-year-old man with obesity, recently started on tirzepatide, admitted with new onset atrial fibrillation with rapid ventricular response, had transesophageal echo and cardioversion but recurrent A-fib, spontaneously reverted again and then started
on amiodarone. He had mild acute HFpEF on admission with normal EF and mild MR.
Patient remains in what is likely atrial flutter with 2 1 conduction. He has vague malaise at this time, cannot really feel tachycardia but felt better in sinus rhythm. Was probably in atrial fibs for 1 week prior to presentation and did not have
left atrial appendage thrombus at the time of ZIYAD last week. Despite gastric ulcers, hemoglobin is stable on apixaban which has been continued.
Current medications: Proscar 5 mg a day, Flomax 0.8 mg a day, pantoprazole 40 mg p.o. twice daily, apixaban 5 mg twice daily, amiodarone 400 mg 3 times daily
99/69, pulse 123, respiratory 20, afebrile, sats 96%, no distress, has crackles/rhonchi in lungs, tachycardic, abdomen benign neck veins okay not much edema, pulses intact
BUN/creatinine are 21 and 1.0, sodium is 134, potassium is 4.1, hemoglobin is stable at 8.5 this morning
Objective
Labs:
05/12/24 03:57
Labs
Hgb 8.5 g/dL (13.0-18.0) L 05/12/24 03:57
Hct 25.1 % (39.0-52.0) L 05/12/24 03:57
Plt Count 276 10^3/uL (130-400) D 05/12/24 03:57
Sodium 134 mmol/L (135-145) L 05/12/24 03:57
Potassium 4.1 mmol/L (3.5-5.1) 05/12/24 03:57
BUN 21 mg/dl (9-20) H 05/12/24 03:57
Creatinine 1.0 mg/dL (0.7-1.3) 05/12/24 03:57
Glucose 115 mg/dl (70-99) H 05/12/24 03:57
Vital Signs and I&O:
Vital Signs
Temp Pulse Resp BP Pulse Ox
36.8 C 123 20 99/69 96
05/12/24 03:00 05/12/24 07:00 05/12/24 07:00 05/12/24 07:00 05/12/24 07:00
Vital Signs
Temp Pulse Resp BP Pulse Ox
36.8 C 123 20 99/69 96
05/12/24 03:00 05/12/24 07:00 05/12/24 07:00 05/12/24 07:00 05/12/24 07:00
Intake & Output
05/09/24 05/10/24 05/11/24 05/12/24
07:59 07:59 07:59 07:59
Intake Total 1460 / 1460 480 / 480 360 / 360
Output Total 1900 / 1900 1230 / 1230 1000 / 1000 475 / 475
Balance -440 / -440 -750 / -750 -640 / -640 -475 / -475
Physical Exam
Physical Exam
See above
[2024-05-12] MEDS: PACERONE 400 MG PO ×3 (09:09→21:39)
[2024-05-12] MEDS: PROTONIX 40 MG PO ×2 (09:09→21:39)
[2024-05-12] MEDS: ELIQUIS 5 MG PO ×2 (09:10→21:39)
[2024-05-12] MEDS: BenGay-Like TOPICAL ×4 (09:11→21:39)
--- NOTE | 2024-05-12 11:54 | PTCARENOTE ---
NPO x meds today, report given to roofing laborer. Voided instrumentation controls engineer- washed up on side of bed and when exerted himself back in bed started c/o of chest tightness 2-06/15. EKG done and relayed to all providers. slab lifting engineer staff here assisted with ekg- ok to
go per Dr. Ponce- escorted in monitored bed with roofing laborer RNs. BP 117/76 AF 125 on tele.
--- NOTE | 2024-05-12 13:22 | W.PN.HOSP.TC ---
Addendum entered and electronically signed by Ronny Rosas DO 05/12/24 15:23:
CDI: Acute gastric ulcer with hemorrhage
Original Note:
Today's Communication/Plan
-
Continue amiodarone load and Eliquis
Consider PVI for CTI if AF/AFL recurs again
Telemetry
Trend CBC
Assessment / Plan
Assessment / Plan
#AF/AFL with RVR
-New onset, [id number] score >2; s/p DCCV on 05/07 with sinus rhythm achieved
-Rhythm initially more consistent with AF some evidence of AFL more recently
-Status post DCCV x 1 however had recurrence on amiodarone load and Eliquis
-Cardiology increased amiodarone to 400 mg 3 times daily on 05/11
-Status post diltiazem drip, currently not on any rate controlling agent
-Second DCCV on 05/12/2024 with worship of NSR after 1 shock
Plan
-Continue amiodarone load and Eliquis
-Monitor on telemetry for further recurrence
-May need to consider PVI versus CTI
#Acute Blood loss Anemia
#Upper GI bleed due to linear gastric ulcers
-Status post upper endoscopy 05/08 with finding of multiple linear gastric ulcers likely from frequent NSAID use
-Has since been transition from IV to oral pantoprazole twice daily with Carafate, will need 8 weeks of twice daily PPI
-Hemoglobin was near 12 prior to arrival, down to 8.4 as of this morning
-GI recommending outpatient GI for repeat EGD in 2 months
-Remains on low residue diet
#Acute hypoxemic respiratory insufficiency
-Patient reports dyspnea with exertion and orthopnea for the past few weeks prior to admission
-Had been diuresing with IV Lasix twice daily however had held diuresis due to GI bleeding with hypotension
-Received 1 dose of IV Lasix; currently on room air with SpO2 92%
-SpO2 goal >90%
-Resolved
#Leukocytosis
-Improving; Likely acute stress reaction secondary to A-fib with RVR and GI bleeding, no overt signs of infection
-Received a dose of antibiotics initially in the ED, will continue to monitor off of antibiotics for now
-Continue to trend CBC and temperature curve for now
#Nausea and vomiting
-Likely ADR from recent initiation of GLP-1 agonist
-No current symptoms, will need to follow-up with PCP at [place] for other options
#BPH
-Home medications include tamsulosin and finasteride nightly
-No signs of urine retention at this time
DVT prophylaxis: SCDs
Diet: Low residue
CODE STATUS: Full code
Anticipated Discharge: 24 - 48 hours
Subjective/Interval History
-
Date of Service: May 12, 2024
Seen and examined at the bedside this morning. No acute events reported overnight. Tachycardic with heart rate near 120 to 130/min, AF versus AFL. Otherwise stable on 2 L O2
N.p.o. for planned cardioversion today.
He denies any new complaints today.
Objective Data
-
Labs:
Laboratory Results
05/12/24 05/12/24
03:57 12:00
WBC 14.1 H Pending
Hgb 8.5 L Pending
Hct 25.1 L Pending
Plt Count 276 D Pending
Sodium 134 L
Potassium 4.1
Chloride 93 L
Carbon Dioxide 35 H
BUN 21 H
Creatinine 1.0
Glucose 115 H
Calcium 8.5
Vital Signs:
Vital Signs
Temp Pulse Resp BP Pulse Ox
98.4 F 126 17 92/64 91
05/12/24 07:50 05/12/24 11:40 05/12/24 11:40 05/12/24 09:15 05/12/24 11:40
I&O
05/11/24 05/12/24 05/13/24
06:59 06:59 06:59
Intake Total 360 / 360
Output Total 650 / 650 825 / 825
Balance -290 / -290 -825 / -825
Review of Systems
-
History Source: Patient
All other systems: Reviewed and negative
Physical Exam
-
General: Well Developed, No Apparent Distress, Comfortable and Obese
HEENT: Normocephalic, Atraumatic and Moist Mucous Membranes
Respiratory: Clear to Auscultation and Non Labored Respirations
Cardiac: S1/S2, Irregular Rhythm and Tachycardic; Negative Murmur, Rub or Gallop
GI: Soft, Nontender, Nondistended and Normal Bowel Sounds
Musculoskeletal: No Clubbing, No Cyanosis and No Edema
Skin: Warm, Dry and Normal Turgor; Negative Rash
Neuro: AO x 3 and Nonfocal/Grossly Intact
Psych: Calm
Data Reviewed
-
Labs: Labs Reviewed by me and Discussed with Patient
--- NOTE | 2024-05-12 13:23 | PTCARENOTE ---
Returned from cath laboratory technician s/p CV- tele shows NSR, PACs freq/ bigeminal short episode but mainly showing SR 80s. BP 100/66.
[2024-05-12] MEDS: SENNA SYRUP 8.8 MG PO (13:59)
[2024-05-12] MEDS: MIRALAX 17 GRAMS PO (13:59)
[2024-05-12 14:17] LABS: Hematocrit 27.1 % (39.0-52.0); Hemoglobin 9.5 g/dL (13.0-18.0); Mean Corp Hgb Conc. 35.1 g/dL (33.0-37.0); Mean Corpuscular Hgb 32.5 pg (27.0-31.0); Mean Corpuscular Volume 92.8 fL (80.0-94.0); Mean Platelet Volume 10.3 fL (7.4-10.4); Platelet Count 331 10^3/uL (130-400); Red Blood Cell Count 2.92 10^6/uL (4.70-6.10); Red Cell Dist. Width 13.4 % (11.5-14.5); White Blood Cell Count 14.9 10^3/uL (4.8-10.8)
--- NOTE | 2024-05-12 14:29 | CM ---
Addendum entered by Aida Martinez RN 05/12/24 15:51:
Spoke with MARISELA Billings; she saw patient again today and is now recommending skilled rehab, as he experienced lightheadedness with standing and did not ambulate today.
Request to MISAEL Bucio for update - they will see him tomorrow.
Met with patient; he is not interested in going to SNF for rehab, as he was at [facility] 2 yrs ago and they only did 15 mins rehab/day. He feels his mobility will improve by discharge, and he wants to wait and see. He is also not sure he
will agree with VN for PT, and may still prefer to go to outpatient therapy. He cannot stay with his son or daughter at d/c as he needs to go home and care for his . Patient agrees to speak with CM about his PT needs when closer to d/c.
Plan follow up with patient about VN or outpatient PT when closer to d/c.
Original Note:
Patient with Dx new Afib, s/p DCCV 05/07 and again today --> SR, anemia/UGIB. Receiving PO Amiodarone. PT recommends HH. OT; home with assist.
CM continuing to follow.
Plan request script for outpatient PT.
Plan home with script for outpatient PT.
--- NOTE | 2024-05-12 14:33 | PN.CDI ---
CDI
- -
CDI:
Physician Documentation Request
Admit Date: 05/05/24 22:05
Dear Doctor Ralph,
Please review the following and provide your response in the progress notes.
Clinical Indicators:
PN, 2/
#Acute Blood loss Anemia
#Upper GI bleed due to linear gastric ulcers
#...-Status post upper endoscopy 05/08 with finding of multiple linear gastric ulcers
#...likely from frequent NSAID use
Please clarify which of the following accurately represents the acuity of the Gastric Ulcers:
Acute gastric ulcer with hemorrhage
Acute on Chronic gastric ulcer with hemorrhage
Other(Please specify)
Use of terms such as suspected, likely, concern for, or probable (associated with a specific diagnosis that is being evaluated, monitored, or treated as if it exists) are acceptable and can be coded in the inpatient setting, when documented at the
time of discharge.
Thank you,
Oma Billings RN BSN CCDS
CDI Specialist
please contact via tiger text
Please use your independent medical judgment in providing your response.
[2024-05-12] MEDS: FLOMAX 0.8 MG PO (18:45)
[2024-05-12] MEDS: PROSCAR 5 MG PO (18:45)
[2024-05-13] VITALS (14 sets, daily range): BP systolic 90–162; BP diastolic 52–100; PULSE 117–133; O2SAT 96–97; BMI 35.3
--- NOTE | 2024-05-13 04:24 | PTCARENOTE ---
Patient remains in NSR w/ PACs on telemetry. 3L NC in place; pt reports SOB intermittently. Crackles present to LLL. Sp02 88% on RA. Sp02 >93% on 3L. Denies any pain. Voiding via urinal. No BM. Able to turn self in bed. CB and tray table within
reach. Pt calls appropriately for assistance.
[2024-05-13 04:30] LABS: % Basophils 0.2 % (0-2); % Eosinophils 1.8 % (0-6); % Immature Granulocytes 1.1 % (0-0.5); % Lymphocytes 15.7 % (20.5-51.1); % Monocytes 6.5 % (1.7-9.3); % Neutrophils 74.7 % (42.2-75.2); Absolute Eosinophils 0.2 10^3/uL (0-0.7); Absolute Immature Granulocytes 0.1 10^3/uL (0-0.05); Absolute Lymphocytes 1.9 10^3/uL (1.2-3.4); Absolute Monocytes 0.8 10^3/uL (0.1-0.6); Hematocrit 24.6 % (39.0-52.0); Hemoglobin 8.4 g/dL (13.0-18.0); Mean Corp Hgb Conc. 34.1 g/dL (33.0-37.0); Mean Corpuscular Hgb 31.7 pg (27.0-31.0); Mean Corpuscular Volume 92.8 fL (80.0-94.0); Mean Platelet Volume 10.2 fL (7.4-10.4); Nucleated Red Blood Cells % 0 % (-); Platelet Count 294 10^3/uL (130-400); Red Blood Cell Count 2.65 10^6/uL (4.70-6.10); Red Cell Dist. Width 13.5 % (11.5-14.5)
[2024-05-13 04:58] LABS: Blood Urea Nitrogen 24 mg/dl (9-20); Calcium 8.8 mg/dl (8.4-10.2); Carbon Dioxide 34 mmol/L (22-30); Chloride 94 mmol/L (98-107); Estimated Creatinine Clearance 114 ml/min; Glucose 109 mg/dl (70-99); Magnesium 2.1 mg/dl (1.6-2.3); Potassium 4.2 mmol/L (3.5-5.1); Sodium 134 mmol/L (135-145); eGFR > 60.00
--- NOTE | 2024-05-13 05:38 | W.PN.GI.CBS2 ---
Addendum entered and electronically signed by JUSTINA Penn 05/13/24 08:25:
message sent to GI office to arrange follow up
Original Note:
Today's Communication / Plan
-
Please see assessment plan for details.
Assessment / Plan
-
1. GI bleed: Secondary to multiple gastric ulcers, likely NSAID induced, pathology negative for H. pylori, status post bipolar cautery. His hemoglobin has remained stable, no signs of bleeding, has tolerated Eliquis without difficulty. At this
point would continue PPI twice daily. Would continue Carafate for the next 2 weeks and can stop. Will set up office visit for Dr. Prabhakar in about a month, plan repeat EGD in 6 weeks pending his medical condition to assess healing.
We will sign off for now, please call back with any further questions.
Subjective
Subjective
Date of Service: May 13, 2024
Events noted, status post cardioversion yesterday with improvement, though unfortunately back in A-fib this morning that he feels. No bowel movements overnight, hemoglobin has remained stable. He is tolerated diet without difficulty.
Objective
Data Reviewed
Laboratory Data:
Laboratory Results
05/13/24 04:09
05/13/24 04:09
Laboratory Results
Phosphorus 2.7 mg/dl (2.5-4.5) 05/12/24 03:57
Magnesium 2.1 mg/dl (1.6-2.3) 05/13/24 04:09
Total Bilirubin 1.2 mg/dl (0.2-1.3) 05/08/24 03:19
AST 28 U/L (17-59) 05/08/24 03:19
ALT 30 U/L (0-50) 05/08/24 03:19
Alkaline Phosphatase 35 U/L (38-126) L 05/08/24 03:19
Lipase Cancelled 05/05/24 21:28
Vital Signs and I&O:
Vital Signs
Temp Pulse Resp BP Pulse Ox
97.8 F 76 17 113/62 100
05/13/24 05:11 05/13/24 04:21 05/13/24 04:21 05/13/24 04:21 05/13/24 04:21
I&O
05/11/24 05/12/24 05/13/24
06:59 06:59 06:59
Intake Total 360 / 360
Output Total 650 / 650 825 / 825 600 / 600
Balance -290 / -290 -825 / -825 -600 / -600
Physical Exam
Physical Exam
General: NAD
Abdomen: normal bowel sounds, soft, no tenderness, no masses or bruits, no ascites
[2024-05-13] MEDS: BenGay-Like TOPICAL ×3 (08:34→18:30)
[2024-05-13] MEDS: MIRALAX 17 GRAMS PO (08:34)
[2024-05-13] MEDS: ELIQUIS 5 MG PO ×2 (08:35→20:31)
[2024-05-13] MEDS: PROTONIX 40 MG PO ×2 (08:35→20:31)
[2024-05-13] MEDS: PACERONE 400 MG PO ×3 (08:35→22:09)
--- NOTE | 2024-05-13 09:06 | W.PN.CARDCBS ---
Today's Communication / Plan
-
He is back in atrial flutter s/p cardioversion May 12 2024.
Cont amiodarone load 400 mg TID
Cont Eliquis
GI signed off.
Eventual consideration for PVI
Add Toprol for better HR control
Cont to monitor H/H
He states he may have sleep apnea as per nursing. Would check outpt sleep study.
Pt would need control of his sleep apnea prior to PVI as untreated sleep apnea would contribute to recurrent atrial arrhythmia.
Impression / Plan
-
.
PCP: Shannon Giraldo
Card: None prior to admission
Impression:
MARX and nausea on admission 05/05/24
Afib with RVR s/p cardioversion May 12
GI bleed with gastric ulcers and anemia
Newly diagnosed paroxysmal Afib
Acute HFpEF
BPH
Obese, BMI 37.9
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
Transesophageal echo 05/07/2024 with EF 55 to 60%. Normal RV. Mild MR. Mild TR with PA pressure 24 mmHg
Plan:
He is back in atrial flutter s/p cardioversion May 12 2024.
Cont amiodarone load 400 mg TID
Cont Eliquis
GI signed off.
Eventual consideration for PVI
Add Toprol for better HR control 12.5 mg BID
Cont to monitor H/H
He states he may have sleep apnea as per nursing. Would check outpt sleep study.
Pt would need control of his sleep apnea prior to PVI as untreated sleep apnea would contribute to recurrent atrial arrhythmia.
Patient came to [facility] 05/06/2024 form his PCPs office with a new diagnosis of A-fib with RVR and cardiology is now consulted. Patient was seeing his PCP yesterday because of nausea and MARX that seem to have started around the time that he started
taking Zepbound as a new weight loss medication about 1 to 2 weeks ago. Patient has been extremely nauseous and has had a dramatic decrease in p.o. intake. He also noticed MARX, but denies any orthopnea, edema or resting SOB. He performed a COVID
test at home before he saw his PCP yesterday that was negative. In the PCPs office he was noted to be in A-fib with RVR and no known history of A-fib. Patient was sent to ER where he had a CT of the chest that showed no evidence of PE. There
was a minimal posterior left pleural effusion and no suggestion of pulmonary edema. His proBNP was 1450. Patient was given Lasix 40 mg IV x 1 and does not feel any symptomatic improvement. Patient complains of ongoing sore throat and a repeat
COVID swab was negative and influenza screening was negative as well. He says throat pain is worse with swallowing. Denies chest pain or palpitations.
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
Subjective
Date of Service: May 13, 2024
Pt seen and examined. No cp.
Objective
Labs:
05/13/24 04:09
05/13/24 04:09
Labs
Hgb 8.4 g/dL (13.0-18.0) L 05/13/24 04:09
Hct 24.6 % (39.0-52.0) L 05/13/24 04:09
Plt Count 294 10^3/uL (130-400) 05/13/24 04:09
Sodium 134 mmol/L (135-145) L 05/13/24 04:09
Potassium 4.2 mmol/L (3.5-5.1) 05/13/24 04:09
BUN 24 mg/dl (9-20) H 05/13/24 04:09
Creatinine 0.9 mg/dL (0.7-1.3) 05/13/24 04:09
Glucose 109 mg/dl (70-99) H 05/13/24 04:09
Vital Signs and I&O:
Vital Signs
Temp Pulse Resp BP Pulse Ox
98.1 F 121 16 105/79 93
05/13/24 07:48 05/13/24 06:00 05/13/24 06:00 05/13/24 06:00 05/13/24 06:00
Vital Signs
Temp Pulse Resp BP Pulse Ox
98.1 F 121 16 105/79 93
05/13/24 07:48 05/13/24 06:00 05/13/24 06:00 05/13/24 06:00 05/13/24 06:00
Intake & Output
05/11/24 05/12/24 05/13/24 05/14/24
06:59 06:59 06:59 06:59
Intake Total 360 / 360
Output Total 650 / 650 825 / 825 600 / 600 400 / 400
Balance -290 / -290 -825 / -825 -600 / -600 -400 / -400
Physical Exam
Physical Exam
General: No acute distress, AAOX3
Neck: Negative JVD
Heart: Irreguarly irregular, Negative S3 positive S1/S2, Negative S4, No murmur
Lungs: CTA b/l, negative wheezes/rales/rhonchi
Abd: Positive BS, NT/ND, neg rebound/rigidity/guarding
Ext: Negative cyanosis/clubbing/edema
Neuro: nonfocal
[2024-05-13] MEDS: TOPROL XL 12.5 MG PO ×2 (12:10→20:32)
--- NOTE | 2024-05-13 12:35 | W.PN.HOSP.TC ---
Today's Communication/Plan
-
Continue with amiodarone, metoprolol, Eliquis
Consider ablation, likely as OP
Telemetry
Trend CBC
Assessment / Plan
Assessment / Plan
#AF/AFL with RVR
-New onset, [id number] score >2; s/p DCCV on 05/07 with sinus rhythm achieved
-Rhythm initially more consistent with AF some evidence of AFL more recently
-Status post DCCV x 1 however had recurrence on amiodarone load and Eliquis
-Cardiology increased amiodarone to 400 mg 3 times daily on 05/11
-Status post diltiazem drip, currently not on any rate controlling agent
-Second DCCV on 05/12/2024 with bahai of NSR after 1 shock
-Reverted to 2:1 AFL with heart rate near 120, cardiology started metoprolol
Plan
-Continue amiodarone load and metoprolol
-Continue with Eliquis for anticoagulant
-Monitor on telemetry for further recurrence
-May need to consider PVI versus CTI
#Acute Blood loss Anemia
#Upper GI bleed due to linear gastric ulcers
-Status post upper endoscopy 05/08 with finding of multiple linear gastric ulcers likely from frequent NSAID use
-Has since been transition from IV to oral pantoprazole twice daily with Carafate, will need 8 weeks of twice daily PPI
-Hemoglobin was near 12 prior to arrival, down to 8.4 as of this morning
-GI recommending outpatient GI for repeat EGD in 2 months
-Remains on low residue diet
#Acute hypoxemic respiratory insufficiency
-Suspect this is related to RVR, no evidence of underlying pulmonary disease, seems euvolemic now
-Patient reports dyspnea with exertion and orthopnea for the past few weeks prior to admission
-SpO2 goal >90%
#Leukocytosis
-Improving; Likely acute stress reaction secondary to A-fib with RVR and GI bleeding, no overt signs of infection
-Received a dose of antibiotics initially in the ED, will continue to monitor off of antibiotics for now
-Continue to trend CBC and temperature curve for now
#Nausea and vomiting
-Likely ADR from recent initiation of GLP-1 agonist
-No current symptoms, will need to follow-up with PCP at [place] for other options
#BPH
-Home medications include tamsulosin and finasteride nightly
-No signs of urine retention at this time
DVT prophylaxis: SCDs
Diet: Low residue
CODE STATUS: Full code
Anticipated Discharge: 24 - 48 hours
Subjective/Interval History
-
Date of Service: May 13, 2024
Seen and examined at the bedside. No acute events reported overnight. States he felt himself convert back into AF/AFL near 5 AM. Remains in 2-1 AFL, heart rate near 120
As of this morning still has palpitations though denies any new complaints
Objective Data
-
Labs:
Laboratory Results
05/13/24
04:09
WBC 12.0 H
Hgb 8.4 L
Hct 24.6 L
Plt Count 294
Sodium 134 L
Potassium 4.2
Chloride 94 L
Carbon Dioxide 34 H
BUN 24 H
Creatinine 0.9
Glucose 109 H
Calcium 8.8
Vital Signs:
Vital Signs
Temp Pulse Resp BP Pulse Ox
98.1 F 121 16 100/63 93
05/13/24 11:20 05/13/24 06:00 05/13/24 06:00 05/13/24 12:10 05/13/24 06:00
I&O
05/12/24 05/13/24 05/14/24
06:59 06:59 06:59
Output Total 825 / 825 600 / 600 400 / 400
Balance -825 / -825 -600 / -600 -400 / -400
Review of Systems
-
History Source: Patient
All other systems: Reviewed and negative
Physical Exam
-
General: Well Developed, No Apparent Distress and Obese
HEENT: Normocephalic, Atraumatic and Moist Mucous Membranes
Respiratory: Clear to Auscultation and Non Labored Respirations
Cardiac: Regular Rhythm, S1/S2 and Tachycardic; Negative Murmur, Rub or Gallop
GI: Soft, Nontender, Nondistended and Normal Bowel Sounds
Musculoskeletal: No Clubbing, No Cyanosis and No Edema
Skin: Warm, Dry and Normal Turgor; Negative Rash
Neuro: AO x 3 and Nonfocal/Grossly Intact
Psych: Calm
Data Reviewed
-
Labs: Labs Reviewed by me and Discussed with Patient
--- NOTE | 2024-05-13 17:30 | CM ---
Patient with Dx new Afib, s/p DCCV 05/07 and 05/12, anemia/UGIB. O2 3L. Receiving PO Amiodarone. PT recommends skilled rehab, OT recommends SNF vs home.
Spoke with patient; he states he did not have a good day today as he was lightheaded and couldn't work well with PT/OT. He remains undecided if he wants to go to SNF for rehab or home with VN, and wants to wait and see if he can improve while here.
Plan watch for home O2 needs.
Plan follow up with patient re; rehab needs.
[2024-05-13] MEDS: FLOMAX 0.8 MG PO (17:54)
[2024-05-13] MEDS: PROSCAR 5 MG PO (17:54)
--- NOTE | 2024-05-13 19:35 | PTCARENOTE ---
day shift note. see mursing assessment. pt noted to be in aflutter tjhis am. confirmed by ekg. pt seen by PT and continues to be dizzy when sitting/standing. discussed with hospitalist. pt requesting melatonin for sllep, order obtained.
[2024-05-13] MEDS: BenGay-Like 1 APPLIC TOPICAL (20:32)
[2024-05-13] MEDS: MELATONIN 5 MG PO (22:09)
[2024-05-14] VITALS (21 sets, daily range): BP systolic 91–143; BP diastolic 54–88; PULSE 110; O2SAT 94; BMI 34.9
[2024-05-14 05:45] LABS: % Basophils 0.4 % (0-2); % Eosinophils 1.8 % (0-6); % Immature Granulocytes 1.1 % (0-0.5); % Lymphocytes 12.9 % (20.5-51.1); % Monocytes 6.9 % (1.7-9.3); % Neutrophils 76.9 % (42.2-75.2); Absolute Basophils 0.1 10^3/uL (0-0.2); Absolute Eosinophils 0.2 10^3/uL (0-0.7); Absolute Immature Granulocytes 0.1 10^3/uL (0-0.05); Absolute Lymphocytes 1.5 10^3/uL (1.2-3.4); Absolute Monocytes 0.8 10^3/uL (0.1-0.6); Absolute Neutrophils 9.2 10^3/uL (1.4-6.5); Hemoglobin 8.5 g/dL (13.0-18.0); Mean Corpuscular Volume 91.2 fL (80.0-94.0); Mean Platelet Volume 9.9 fL (7.4-10.4); Nucleated Red Blood Cells % 0 % (-); Platelet Count 332 10^3/uL (130-400); Red Blood Cell Count 2.74 10^6/uL (4.70-6.10); Red Cell Dist. Width 13.5 % (11.5-14.5)
[2024-05-14 05:56] LABS: Blood Urea Nitrogen 21 mg/dl (9-20); Carbon Dioxide 31 mmol/L (22-30); Chloride 95 mmol/L (98-107); Estimated Creatinine Clearance 103 ml/min; Glucose 123 mg/dl (70-99); Iron 54 ug/dl (49-181); Potassium 4.3 mmol/L (3.5-5.1); Sodium 133 mmol/L (135-145); eGFR > 60.00
[2024-05-14 06:05] LABS: Percent Saturation 19 % (20-50); Total Iron Binding Capacity 283 ug/dl (261-462)
--- NOTE | 2024-05-14 06:41 | PTCARENOTE ---
Caring for pt overnight. NO assessment changes.
Pt complaining about feeling very weak and unable to even sit on side of bed without getting dizzy. HGB still in 8's, maybe he isnt tolerating it being this low?? Normal is 15? BPs all stable. Remained in bed overnight. Continues to be in afib 110's
bpm. Will continue to monitor.
[2024-05-14 07:02] LABS: Folate 5.6 ng/ml (2.76-20); Vitamin B12 809 pg/ml (239-931)
[2024-05-14] MEDS: PACERONE 400 MG PO ×3 (08:07→22:08)
[2024-05-14] MEDS: BenGay-Like TOPICAL ×4 (08:07→22:07)
[2024-05-14] MEDS: TOPROL XL 12.5 MG PO ×2 (08:07→19:45)
[2024-05-14] MEDS: ELIQUIS 5 MG PO ×2 (08:07→19:45)
[2024-05-14] MEDS: MIRALAX 17 GRAMS PO (08:07)
[2024-05-14] MEDS: PROTONIX 40 MG PO ×2 (08:08→19:45)
[2024-05-14] MEDS: CLOBETASOL PROPIONATE 0.05% CREAM 1 APPLIC TOPICAL (10:43)
[2024-05-14] MEDS: TRIAMCINOLONE ACETONIDE 0.1% CREAM 1 APPLIC TOPICAL ×3 (10:43→22:08)
--- NOTE | 2024-05-14 11:00 | W.PN.CARDCBS ---
Today's Communication / Plan
-
Continue amiodarone and metoprolol for HR goal <110 bpm
Eliquis for cardioembolic prophylaxis, monitor for signs of recurrent GI bleeding
Impression / Plan
-
PCP: Shannon Giraldo
Card: None prior to admission, initially seen by Alba
Impression:
Newly diagnosed paroxysmal Afib
Acute HFpEF
GI bleed with gastric ulcers and anemia
BPH
Obese, BMI 37.9
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
Transesophageal echo 05/07/2024 with EF 55 to 60%. Normal RV. Mild MR. Mild TR with PA pressure 24 mmHg
Plan:
He is back in atrial flutter s/p cardioversion May 12 2024
Cont amiodarone load 400 mg TID
HR goal <110 bpm
Toprol added, but I am hesitant to increase further as he is reporting lightheadedness
Cont Eliquis
GI signed off
Cont to monitor H/H
Eventual consideration for PVI
Received IV lasix earlier this admission, but appears euvolemic on exam, hold off on further diuresis
Would check outpt sleep study.
Patient came to [facility] 05/06/2024 form his PCPs office with a new diagnosis of A-fib with RVR and cardiology is now consulted. Patient was seeing his PCP yesterday because of nausea and MARX that seem to have started around the time that he started
taking Zepbound as a new weight loss medication about 1 to 2 weeks ago. Patient has been extremely nauseous and has had a dramatic decrease in p.o. intake. He also noticed MARX, but denies any orthopnea, edema or resting SOB. He performed a COVID
test at home before he saw his PCP yesterday that was negative. In the PCPs office he was noted to be in A-fib with RVR and no known history of A-fib. Patient was sent to ER where he had a CT of the chest that showed no evidence of PE. There
was a minimal posterior left pleural effusion and no suggestion of pulmonary edema. His proBNP was 1450. Patient was given Lasix 40 mg IV x 1 and does not feel any symptomatic improvement. Patient complains of ongoing sore throat and a repeat
COVID swab was negative and influenza screening was negative as well. He says throat pain is worse with swallowing. Denies chest pain or palpitations.
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
Subjective
Date of Service: May 14, 2024
NAOE. Resting comfortably in bed in IMU. Reporting lightheadedness and dizziness, but no palpitations.
Objective
Labs:
05/14/24 05:28
05/14/24:
Labs
Hgb 8.5 g/dL (13.0-18.0) L 05/14/24 05:
Hct 25.0 % (39.0-52.0) L 05/14/24 05:
Plt Count 332 10^3/uL (130-400) 05/14/24 05:28
Sodium 133 mmol/L (135-145) L 05/14/24 05:28
Potassium 4.3 mmol/L (3.5-5.1) 05/14/24 05:28
BUN 21 mg/dl (9-20) H 05/14/24 05:28
Creatinine 1.0 mg/dL (0.7-1.3) 05/14/24 05:28
Glucose 123 mg/dl (70-99) H 05/14/24 05:28
Vital Signs and I&O:
Vital Signs
Temp Pulse Resp BP Pulse Ox
98.4 F 112 28 112/83 98
05/14/24 07:35 05/14/24 06:00 05/14/24 06:00 05/14/24 04:00 05/14/24 06:00
Vital Signs
Temp Pulse Resp BP Pulse Ox
98.4 F 112 28 112/83 98
05/14/24 07:35 05/14/24 06:00 05/14/24 06:00 05/14/24 04:00 05/14/24 06:00
Intake & Output
05/12/24 05/13/24 05/14/24 05/15/24
06:59 06:59 06:59 06:59
Output Total 825 / 825 600 / 600 1500 / 1500
Balance -825 / -825 -600 / -600 -1500 / -1500
Physical Exam
Physical Exam
Gen: NAD, AAOx3
HEENT: NC/AT, sclera anicteric
Neck: No JVD
CV: Irregularly irregular, NL s1/s2, no M/R/G
Lungs: CTAB
Abd: S/ND
Ext: No LE edema
Skin: Warm, dry
Neuro: Non-focal
--- NOTE | 2024-05-14 11:54 | W.PN.HOSP.TC ---
Addendum entered and electronically signed by Ronny Rosas DO 05/14/24 14:53:
#Prolonged QTc interval
-Secondary to amiodarone load
-Will continue to monitor QTc
-Monitor and replete K >4 and mag >2
-Avoid unnecessary QTc prolonging agent
Original Note:
Today's Communication/Plan
-
Transfuse 1 unit PRBC, consider second unit
Continue amiodarone and metoprolol
Trend CBC on Eliquis
Telemetry
Assessment / Plan
Assessment / Plan
#AF/AFL with RVR
-New onset, [id number] score >2; s/p DCCV on 05/07 with sinus rhythm achieved
-Rhythm initially more consistent with AF some evidence of AFL more recently
-Status post DCCV x 1 however had recurrence on amiodarone load and Eliquis
-Cardiology increased amiodarone to 400 mg 3 times daily on 05/11
-Status post diltiazem drip, currently not on any rate controlling agent
-Second DCCV on 05/12/2024 with samaritan of NSR after 1 shock
-Reverted to 2:1 AFL with heart rate near 120, cardiology started metoprolol
-Question if anemia is contributing to the persistence
Plan
-Continue amiodarone load and metoprolol
-Continue with Eliquis for anticoagulant
-Monitor on telemetry for further recurrence
-Consider PVI versus CTI
#Acute Blood loss Anemia with symptoms
#Upper GI bleed due to linear gastric ulcers
-Status post upper endoscopy 05/08 with finding of multiple linear gastric ulcers likely from frequent NSAID use
-Has since been transition from IV to oral pantoprazole twice daily with Carafate, will need 8 weeks of twice daily PPI
-Hemoglobin was near 12 prior to arrival, down to 8.4 as of this morning
-GI recommending outpatient GI for repeat EGD in 2 months
-Hemoglobin 8.5 today, Seems symptomatic secondary to the anemia
-T&S obtained, consent form signed
Plan
-Transfuse 1 unit PRBC
-Follow-up symptomatology, consider second unit if needed
-Trend CBC
-Avoid NSAIDs
#Acute hypoxemic respiratory insufficiency
-Suspect this is related to RVR, no evidence of underlying pulmonary disease, seems euvolemic now
-Patient reports dyspnea with exertion and orthopnea for the past few weeks prior to admission
-SpO2 goal >90%
#Leukocytosis
-Improving; Likely acute stress reaction secondary to A-fib with RVR and GI bleeding, no overt signs of infection
-Received a dose of antibiotics initially in the ED, will continue to monitor off of antibiotics for now
-Continue to trend CBC and temperature curve for now
#Nausea and vomiting
-Likely ADR from recent initiation of GLP-1 agonist
-No current symptoms, will need to follow-up with PCP at [place] for other options
#BPH
-Home medications include tamsulosin and finasteride nightly
-No signs of urine retention at this time
DVT prophylaxis: SCDs
Diet: Low residue
CODE STATUS: Full code
Anticipated Discharge: > 48 hours
Subjective/Interval History
-
Date of Service: May 14, 2024
Seen and examined at the bedside. No acute events report overnight. Tachycardic at 112, irregularly irregular though otherwise hemodynamically stable and afebrile.
Still complains of significant weakness that seems disproportionate to his AF/AFL.
Denies any new complaints.
Objective Data
-
Labs:
Laboratory Results
05/14/24
05:28
WBC 12.0 H
Hgb 8.5 L
Hct 25.0 L
Plt Count 332
Sodium 133 L
Potassium 4.3
Chloride 95 L
Carbon Dioxide 31 H
BUN 21 H
Creatinine 1.0
Glucose 123 H
Calcium 9.0
Vital Signs:
Vital Signs
Temp Pulse Resp BP Pulse Ox
98.1 F 112 28 112/83 98
05/14/24 11:18 05/14/24 06:00 05/14/24 06:00 05/14/24 04:00 05/14/24 06:00
I&O
05/13/24 05/14/24 05/15/24
06:59 06:59 06:59
Output Total 600 / 600 1500 / 1500
Balance -600 / -600 -1500 / -1500
Review of Systems
-
History Source: Patient
All other systems: Reviewed and negative
Physical Exam
-
General: Well Developed, Well Nourished, No Apparent Distress and Obese
HEENT: Normocephalic, Atraumatic, Moist Mucous Membranes and Anicteric
Respiratory: Clear to Auscultation and Non Labored Respirations
Cardiac: S1/S2, Irregular Rhythm and Tachycardic; Negative Murmur, Rub or Gallop
GI: Soft, Nontender, Nondistended and Normal Bowel Sounds
Musculoskeletal: No Clubbing, No Cyanosis and No Edema
Skin: Warm and Dry; Negative Rash
Neuro: AO x 3 and Nonfocal/Grossly Intact
Psych: Calm
Data Reviewed
-
Labs: Labs Reviewed by me, Discussed with Physician (Timekeeper Supervisor) and Discussed with Patient
[2024-05-14] MEDS: SENNA SYRUP PO ×2 (12:38→19:45)
--- NOTE | 2024-05-14 13:19 | VATNOTE ---
During routine assessment, cord in pt's R antecubital fossa barely palpable. Heat application offered to pt, declined.
--- NOTE | 2024-05-14 14:02 | PTCARENOTE ---
Assumed care of patient at beginning of this shift from previous RN with O2 3L n/c in use; able to wean to current 1L n/c with POx 96-97%. Still c/0 feeling tired and lightheaded at times. H&H 8.5/25; currently receiving 1u PRBCs as ordered. Patient
ordered senokot liquid but refused; he had mod formed bm on bedpan, brown/black and heme +. TT sent to Dr Rosas to make him aware.
[2024-05-14] MEDS: PROSCAR 5 MG PO (17:04)
[2024-05-14] MEDS: FLOMAX 0.8 MG PO (17:04)
[2024-05-14] MEDS: MELATONIN 5 MG PO (22:06)
[2024-05-15] VITALS (20 sets, daily range): BP systolic 88–117; BP diastolic 52–87; BMI 35.1
[2024-05-15 05:00] LABS: Hematocrit 28.6 % (39.0-52.0); Hemoglobin 9.6 g/dL (13.0-18.0)
[2024-05-15] MEDS: BenGay-Like TOPICAL ×4 (08:02→19:55)
[2024-05-15] MEDS: CLOBETASOL PROPIONATE 0.05% CREAM 1 APPLIC TOPICAL (08:02)
[2024-05-15] MEDS: ELIQUIS 5 MG PO ×2 (08:03→19:55)
[2024-05-15] MEDS: PROTONIX 40 MG PO ×2 (08:03→19:56)
[2024-05-15] MEDS: SENNA SYRUP 8.8 MG PO (08:03)
[2024-05-15] MEDS: TOPROL XL 12.5 MG PO (08:03)
[2024-05-15] MEDS: MIRALAX 17 GRAMS PO (08:03)
[2024-05-15] MEDS: PACERONE 400 MG PO ×2 (08:03→19:56)
[2024-05-15] MEDS: TRIAMCINOLONE ACETONIDE 0.1% CREAM 1 APPLIC TOPICAL ×2 (08:04→22:23)
[2024-05-15] MEDS: FLEXERIL 5 MG PO ×2 (08:13→22:22)
--- NOTE | 2024-05-15 10:25 | W.PN.CARDCBS ---
Today's Communication / Plan
-
Decrease amiodarone to 400mg BID
Increase Toprol for HR goal <110 bpm
Impression / Plan
-
PCP: Shannon Giraldo
Card: None prior to admission, initially seen by Alba
Impression:
Newly diagnosed paroxysmal Afib
Acute HFpEF
GI bleed with gastric ulcers and anemia
BPH
Obese, BMI 37.9
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
Transesophageal echo 05/07/2024 with EF 55 to 60%. Normal RV. Mild MR. Mild TR with PA pressure 24 mmHg
Plan:
He is back in atrial flutter s/p cardioversion May 12 2024
HR goal <110 bpm
Rate control with amiodarone 400 mg BID
Increase Toprol XL to 25mg BID
Cont Eliquis
GI signed off
Cont to monitor H/H
Eventual consideration for PVI
Received IV lasix earlier this admission, but appears euvolemic on exam, hold off on further diuresis
Would check outpt sleep study
Encouraged OOB to chair
Patient came to [facility] 05/06/2024 form his PCPs office with a new diagnosis of A-fib with RVR and cardiology is now consulted. Patient was seeing his PCP yesterday because of nausea and MARX that seem to have started around the time that he started
taking Zepbound as a new weight loss medication about 1 to 2 weeks ago. Patient has been extremely nauseous and has had a dramatic decrease in p.o. intake. He also noticed MARX, but denies any orthopnea, edema or resting SOB. He performed a COVID
test at home before he saw his PCP yesterday that was negative. In the PCPs office he was noted to be in A-fib with RVR and no known history of A-fib. Patient was sent to ER where he had a CT of the chest that showed no evidence of PE. There
was a minimal posterior left pleural effusion and no suggestion of pulmonary edema. His proBNP was 1450. Patient was given Lasix 40 mg IV x 1 and does not feel any symptomatic improvement. Patient complains of ongoing sore throat and a repeat
COVID swab was negative and influenza screening was negative as well. He says throat pain is worse with swallowing. Denies chest pain or palpitations.
Progress Note - Barrel Driller
Subjective
Date of Service: May 15, 2024
NAOE. Hollis better after blood transfusion yesterday. No palpitations.
Objective
Labs:
05/15/24 04:44
Labs
Hgb 9.6 g/dL (13.0-18.0) L 05/15/24 04:44
Hct 28.6 % (39.0-52.0) L 05/15/24 04:44
Plt Count 332 10^3/uL (130-400) 05/14/24 05:28
Sodium 133 mmol/L (135-145) L 05/14/24 05:28
Potassium 4.3 mmol/L (3.5-5.1) 05/14/24 05:28
BUN 21 mg/dl (9-20) H 05/14/24 05:28
Creatinine 1.0 mg/dL (0.7-1.3) 05/14/24 05:28
Glucose 123 mg/dl (70-99) H 05/14/24 05:28
Vital Signs and I&O:
Vital Signs
Temp Pulse Resp BP Pulse Ox
98.1 F 85 20 102/85 93
05/15/24 07:33 05/15/24 06:00 05/15/24 06:00 05/15/24 06:00 05/15/24 06:00
Vital Signs
Temp Pulse Resp BP Pulse Ox
98.1 F 85 20 102/85 93
05/15/24 07:33 05/15/24 06:00 05/15/24 06:00 05/15/24 06:00 05/15/24 06:00
Intake & Output
05/13/24 05/14/24 05/15/24 05/16/24
06:59 06:59 06:59 06:59
Intake Total 500 / 500
Output Total 600 / 600 1500 / 1500 1175 / 1175
Balance -600 / -600 -1500 / -1500 -675 / -675
Physical Exam
Physical Exam
Gen: NAD, AAOx3, resting comfortably in bed
HEENT: NC/AT, sclera anicteric
Neck: No JVD
CV: Irregularly irregular, NL s1/s2, no M/R/G
Lungs: No increased work of breathing on 2 L nasal cannula
Abd: S/ND
Ext: No LE edema
Skin: Warm, dry
Neuro: Non-focal
--- NOTE | 2024-05-15 10:25 | W.PN.HOSP.TC ---
Today's Communication/Plan
-
Transfuse 1 more unit
Continue amiodarone load/Eliquis/metoprolol
Monitor QTc
CBC and BMP
Possible discharge if symptomatically improved after second unit of PRBC and okay for discharge from cardiology perspective
Assessment / Plan
Assessment / Plan
#AF/AFL with RVR
-New onset, [id number] score >2; s/p DCCV on 05/07 with sinus rhythm achieved
-Rhythm initially more consistent with AF some evidence of AFL more recently
-Status post DCCV x 1 however had recurrence on amiodarone load and Eliquis
-Cardiology increased amiodarone to 400 mg 3 times daily on 05/11
-Status post diltiazem drip, currently not on any rate controlling agent
-Second DCCV on 05/12/2024 with [facility] of NSR after 1 shock
-Reverted to 2:1 AFL with heart rate near 120, cardiology started metoprolol
-Question if anemia is contributing to the persistence
Plan
-Continue amiodarone load and metoprolol
-Continue with Eliquis for anticoagulant
-Monitor on telemetry for further recurrence
-Consider PVI versus CTI
#Acute Blood loss Anemia with symptoms
#Upper GI bleed due to linear gastric ulcers
-Status post upper endoscopy 05/08 with finding of multiple linear gastric ulcers likely from frequent NSAID use
-Has since been transition from IV to oral pantoprazole twice daily with Carafate, will need 8 weeks of twice daily PPI
-Hemoglobin was near 12 prior to arrival, as low as 8.4 however never required transfusion for hemoglobin <7
-T&S obtained, consent form signed; received 1 unit on 05/14 with hemoglobin up to 9.6
-GI recommending outpatient gastroenterology for repeat EGD in 2 months
Plan
-Transfuse additional 1 unit PRBC
-Follow-up symptomatology
-Trend CBC
-Avoid NSAIDs
-OP EGD in 2 months
#Acute hypoxemic respiratory insufficiency
-Suspect this is related to RVR, no evidence of underlying pulmonary disease, seems euvolemic now
-Patient reports dyspnea with exertion and orthopnea for the past few weeks prior to admission
-SpO2 goal >90%
#Prolonged QTc interval
-Secondary to amiodarone load
-Will continue to monitor QTc
-Monitor and replete K >4 and mag >2
-Avoid unnecessary QTc prolonging agent
#Leukocytosis
-Improving; Likely acute stress reaction secondary to A-fib with RVR and GI bleeding, no overt signs of infection
-Received a dose of antibiotics initially in the ED, will continue to monitor off of antibiotics for now
-Continue to trend CBC and temperature curve for now
#Nausea and vomiting
-Likely ADR from recent initiation of GLP-1 agonist
-No current symptoms, will need to follow-up with PCP at [facility] for other options
#BPH
-Home medications include tamsulosin and finasteride nightly
-No signs of urine retention at this time
DVT prophylaxis: SCDs
Diet: Low residue
CODE STATUS: Full code
Anticipated Discharge: Within 24 hours
Subjective/Interval History
-
Date of Service: May 15, 2024
Seen and examined at the bedside. No acute events reported overnight. AFVSS on 1 L O2 as of this morning. Heart rate improved, in the 80s/min range.
Blood counts improved with hemoglobin near 9.6. Patient states his symptoms are improved, felt really well for a brief period yesterday
He denies any new complaints today. States he still does not feel at baseline
Objective Data
-
Labs:
Laboratory Results
05/15/24 05/15/24
04:44 07:53
Hgb 9.6 L
Hct 28.6 L
Sodium Pending
Potassium Pending
Chloride Pending
Carbon Dioxide Pending
BUN Pending
Creatinine Pending
Glucose Pending
Calcium Pending
Vital Signs:
Vital Signs
Temp Pulse Resp BP Pulse Ox
98.1 F 85 20 102/85 93
05/15/24 07:33 05/15/24 06:00 05/15/24 06:00 05/15/24 06:00 05/15/24 06:00
I&O
05/14/24 05/15/24 05/16/24
06:59 06:59 06:59
Intake Total 500 / 500
Output Total 1500 / 1500 1175 / 1175
Balance -1500 / -1500 -675 / -675
Review of Systems
-
History Source: Patient
All other systems: Reviewed and negative
Physical Exam
-
General: Well Developed, Well Nourished and No Apparent Distress
HEENT: Normocephalic, Atraumatic, Moist Mucous Membranes and Anicteric
Respiratory: Clear to Auscultation and Non Labored Respirations
Cardiac: S1/S2 and Irregular Rhythm; Negative Murmur, Rub, Gallop or Tachycardic
GI: Soft, Nontender, Nondistended and Normal Bowel Sounds
Musculoskeletal: No Clubbing, No Cyanosis and No Edema
Skin: Warm and Dry; Negative Rash
Neuro: AO x 3 and Nonfocal/Grossly Intact
Psych: Calm
Data Reviewed
-
Labs: Labs Reviewed by me and Discussed with Patient
--- NOTE | 2024-05-15 10:39 | CM ---
Met with patient at bedside; explained that PT recommended SNF post acute. Patient does not want to go to SNF; is agreeable to [facility]/Home Health
Home Health agency options reviewed; no preference; agreeable to Home Health; referral sent to [facility] liaison via [facility]
Plan: Discharge to home with home health services when medically stable
--- NOTE | 2024-05-15 11:59 | VNURNOTE ---
Home Health Liaison met with patient at bedside to discuss [facility] nurse/therapy, visits, schedule and homebound status. Patient is agreeable and understands that visits at home will be 2-3 x per week to assess and teach medical management. Patient is
aware that [facility] will contact them for start of care in 1-2 days after discharge from .
[facility] referral completed in [facility].
[2024-05-15 12:08] LABS: Blood Urea Nitrogen 20 mg/dl (9-20); Calcium 9.2 mg/dl (8.4-10.2); Carbon Dioxide 34 mmol/L (22-30); Chloride 94 mmol/L (98-107); Estimated Creatinine Clearance 93 ml/min; Glucose 113 mg/dl (70-99); Potassium 4.5 mmol/L (3.5-5.1); Sodium 133 mmol/L (135-145); eGFR > 60.00
[2024-05-15] MEDS: TRIAMCINOLONE ACETONIDE 0.1% CREAM TOPICAL (18:29)
--- NOTE | 2024-05-15 18:29 | PTCARENOTE ---
Unit of packed cells transfused with no signs of reaction. pt able to sit at edge of bed without getting dizzy but reports that he still feels very weak and tired. denies any abdominal pain or nausea. ate 100 percent of one meal.
[2024-05-15] MEDS: TOPROL XL 25 MG PO (19:55)
[2024-05-15] MEDS: SENNA SYRUP PO (19:55)
[2024-05-15] MEDS: PROSCAR 5 MG PO (19:55)
[2024-05-15] MEDS: FLOMAX 0.8 MG PO (19:55)
[2024-05-15] MEDS: MELATONIN 5 MG PO (22:22)
[2024-05-16] VITALS (11 sets, daily range): BP systolic 97–122; BP diastolic 65–102; PULSE 102–112; O2SAT 96; BMI 34.9
[2024-05-16 04:42] LABS: % Basophils 0.5 % (0-2); % Eosinophils 1.5 % (0-6); % Immature Granulocytes 0.8 % (0-0.5); % Lymphocytes 15.2 % (20.5-51.1); Absolute Basophils 0.1 10^3/uL (0-0.2); Absolute Eosinophils 0.2 10^3/uL (0-0.7); Absolute Immature Granulocytes 0.1 10^3/uL (0-0.05); Absolute Lymphocytes 1.7 10^3/uL (1.2-3.4); Absolute Monocytes 0.9 10^3/uL (0.1-0.6); Absolute Neutrophils 8.2 10^3/uL (1.4-6.5); Hematocrit 31.6 % (39.0-52.0); Hemoglobin 10.5 g/dL (13.0-18.0); Mean Corp Hgb Conc. 33.2 g/dL (33.0-37.0); Mean Corpuscular Hgb 31.2 pg (27.0-31.0); Mean Corpuscular Volume 93.8 fL (80.0-94.0); Mean Platelet Volume 9.8 fL (7.4-10.4); Nucleated Red Blood Cells % 0 % (-); Platelet Count 345 10^3/uL (130-400); Red Blood Cell Count 3.37 10^6/uL (4.70-6.10); Red Cell Dist. Width 14.4 % (11.5-14.5)
[2024-05-16 05:10] LABS: Blood Urea Nitrogen 23 mg/dl (9-20); Calcium 9.3 mg/dl (8.4-10.2); Carbon Dioxide 30 mmol/L (22-30); Chloride 98 mmol/L (98-107); Estimated Creatinine Clearance 93 ml/min; Glucose 132 mg/dl (70-99); Potassium 4.8 mmol/L (3.5-5.1); Sodium 135 mmol/L (135-145); eGFR > 60.00
[2024-05-16] MEDS: MIRALAX PO (08:23)
[2024-05-16] MEDS: SENNA SYRUP PO (08:23)
[2024-05-16] MEDS: ELIQUIS 5 MG PO (08:23)
[2024-05-16] MEDS: TOPROL XL 25 MG PO (08:24)
[2024-05-16] MEDS: BenGay-Like TOPICAL ×2 (08:24→12:17)
[2024-05-16] MEDS: PACERONE 400 MG PO (08:24)
[2024-05-16] MEDS: PROTONIX 40 MG PO (08:24)
[2024-05-16] MEDS: CLOBETASOL PROPIONATE 0.05% CREAM 1 APPLIC TOPICAL (08:25)
[2024-05-16] MEDS: TRIAMCINOLONE ACETONIDE 0.1% CREAM 1 APPLIC TOPICAL (08:25)
--- NOTE | 2024-05-16 11:08 | W.PN.HOSP.TC ---
Today's Communication/Plan
-
Discharge
Amiodarone 200 mg twice daily
Metoprolol tartrate 25 twice daily
Eliquis 5 twice daily
Pantoprazole 40 twice daily
OP GI, cards, pulm
Assessment / Plan
Assessment / Plan
#AF/AFL with RVR
-New onset, [id number] score >2; s/p DCCV on 05/07 with sinus rhythm achieved
-Rhythm initially more consistent with AF some evidence of AFL more recently
-Status post DCCV x 1 however had recurrence on amiodarone load and Eliquis
-Cardiology increased amiodarone to 400 mg 3 times daily on 05/11
-Status post diltiazem drip, currently not on any rate controlling agent
-Second DCCV on 05/12/2024 with [employer] witness of NSR after 1 shock
-Reverted to 2:1 AFL with heart rate near 120, cardiology started metoprolol
-Question if anemia is contributing to the persistence, rate controlled after blood
-Will discharge on metoprolol succinate 25 mg twice daily, amiodarone 200 mg twice daily, Eliquis twice daily
-Follow-up with national recruiter in 2 weeks for consideration of DCCV versus PVI ablation
#Acute Blood loss Anemia with symptoms
#Upper GI bleed due to linear gastric ulcers
-Status post upper endoscopy 05/08 with finding of multiple linear gastric ulcers likely from frequent NSAID use
-Has since been transition from IV to oral pantoprazole twice daily with Carafate, will need 8 weeks of twice daily PPI
-Hemoglobin was near 12 prior to arrival, as low as 8.4 however never required transfusion for hemoglobin <7
-T&S obtained, consent form signed; received 1 unit on 05/14 with hemoglobin up to 9.6
-GI recommending outpatient gastroenterology for repeat EGD in 2 months
-S/p 2 units total here with hemoglobin up to 10.6, symptomatically improved
-Discharge on pantoprazole 40 mg twice daily and CBC in 1 week from discharge
#Acute hypoxemic respiratory insufficiency
-Suspect this is related to RVR, no evidence of underlying pulmonary disease, seems euvolemic now
-Patient reports dyspnea with exertion and orthopnea for the past few weeks prior to admission
-SpO2 goal >90%
-Resolved
#Prolonged QTc interval
-Secondary to amiodarone load
-Will continue to monitor QTc
-Monitor and replete K >4 and mag >2
-Avoid unnecessary QTc prolonging agent
#Leukocytosis
-Improving; Likely acute stress reaction secondary to A-fib with RVR and GI bleeding, no overt signs of infection
-Received a dose of antibiotics initially in the ED, will continue to monitor off of antibiotics for now
-Continue to trend CBC and temperature curve for now
#Nausea and vomiting
-Likely ADR from recent initiation of GLP-1 agonist
-No current symptoms, will need to follow-up with PCP at [facility] for other options
#BPH
-Home medications include tamsulosin and finasteride nightly
-No signs of urine retention at this time
#Suspected ADRIANNA
#Former smoker
-Is noted to have desaturations into the 80s at nighttime when sleeping
-Does have habitus consistent with obstructive sleep apnea
-Referral for OP pulmonology for ADRIANNA and PFTs due to his smoking history
DVT prophylaxis: SCDs
Diet: Low residue
CODE STATUS: Full code
>30 minutes utilized for discharge planning and preparation, arranging outpatient follow-up and updating medical team
Anticipated Discharge: Today
Subjective/Interval History
-
Date of Service: May 16, 2024
Seen and examined at the bedside. No acute events reported overnight. AFVSS this morning on room air. Does have overnight desaturations
Hemoglobin up to 10.6 after second unit of blood. Symptomatically mildly improved
He denies any new complaints today. Remains in atrial fibrillation with controlled rate
Objective Data
-
Labs:
Laboratory Results
05/16/24
04:19
WBC 11.0 H
Hgb 10.5 L
Hct 31.6 L
Plt Count 345
Sodium 135
Potassium 4.8
Chloride 98
Carbon Dioxide 30
BUN 23 H
Creatinine 1.1
Glucose 132 H
Calcium 9.3
Vital Signs:
Vital Signs
Temp Pulse Resp BP Pulse Ox
97.4 F 77 26 104/66 96
05/16/24 07:40 05/16/24 06:00 05/16/24 06:00 05/16/24 06:00 05/16/24 06:00
I&O
05/15/24 05/16/24 05/17/24
06:59 06:59 06:59
Intake Total 500 / 500 250 / 250
Output Total 1175 / 1175 1150 / 1150
Balance -675 / -675 -900 / -900
Review of Systems
-
History Source: Patient
All other systems: Reviewed and negative
Physical Exam
-
General: Well Developed, No Apparent Distress, Comfortable and Obese
HEENT: Normocephalic, Atraumatic and Moist Mucous Membranes
Respiratory: Non Labored Respirations and Decreased Breath Sounds; Negative Wheezes, Rales or Rhonchi
Cardiac: S1/S2 and Irregular Rhythm; Negative Murmur, Rub or Gallop
GI: Soft, Nontender, Nondistended and Normal Bowel Sounds
Musculoskeletal: No Clubbing, No Cyanosis and No Edema
Skin: Warm, Dry and Normal Turgor; Negative Rash
Neuro: AO x 3 and Nonfocal/Grossly Intact
Psych: Calm
Data Reviewed
-
Labs: Labs Reviewed by me, Discussed with Physician (Radiation Control Worker) and Discussed with Patient
--- NOTE | 2024-05-16 11:40 | PTCARENOTE ---
Assumed care of patient at beginning of this shift from previous RN with O2 2l n/c in use. Patient tolerated RA with POx 95%. Denies SOB. Per report, POx dropped to 88% when sleeping. Reviewed with Dr Monterroso heel attacher wood when he was in to see
patient and Dr Rosas hospitalist made aware via TT. Patient ok for discharge per Dr Rosas. See worklist for full assessment and vital signs.
--- NOTE | 2024-05-16 12:36 | PTCARENOTE ---
Dr Rosas made aware via TT that patient's POX had previously dropped to 88% when asleep and was placed on 2L n/c; he has maintained POx 95% on RA today. Ok for discharge.
--- NOTE | 2024-05-16 13:07 | CM ---
Patient with Dx new Afib, s/p DCCV 05/07 and 05/12, anemia/UGIB. Room air. PT recommends skilled rehab, OT recommends SNF vs home.
Met with patient who states he feels ready for d/c home today. IMM completed. Patient is aware that [facility] is setup for him. He would llike a RW for home use - agree to request and PT will provide. Patient says his son will provide transport home
today.
Message to Dr Rosas; he agrees to provide script for RW.
Spoke with MARISELA Coffey; she will see the patient and issue a RW.
Message to FOUZIA Chao informing her of d/c home today.
Plan home today with [facility] and RW.
--- NOTE | 2024-05-16 13:11 | W.PN.CARDCBS ---
Today's Communication / Plan
-
Remains in A-fib/flutter�continue metoprolol, amiodarone, Eliquis
To discuss outpatient cardioversion and/or PVI at follow-up appointment
Stable for discharge from my perspective
Impression / Plan
-
PCP: Shannon Giraldo
Card: None prior to admission, initially seen by Alba
Impression:
Newly diagnosed paroxysmal Afib
Acute HFpEF
GI bleed with gastric ulcers and anemia
BPH
Obese, BMI 37.9
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
Transesophageal echo 05/07/2024 with EF 55 to 60%. Normal RV. Mild MR. Mild TR with PA pressure 24 mmHg
Plan:
He is back in atrial flutter s/p cardioversion May 12 2024
HR goal <110 bpm
Rate control with Toprol XL to 25mg BID and amiodarone 200 mg BID
Cont Eliquis
Would attempt outpatient DCCV if he remains in AFib/flutter
Eventual consideration for PVI
Received IV lasix earlier this admission, but appears euvolemic on exam, hold off on further diuresis
Would check outpt sleep study
Stable for discharge from my perspective
Outpatient follow-up has been arranged
Patient came to [facility] 05/06/2024 form his PCPs office with a new diagnosis of A-fib with RVR and cardiology is now consulted. Patient was seeing his PCP yesterday because of nausea and MARX that seem to have started around the time that he started
taking Zepbound as a new weight loss medication about 1 to 2 weeks ago. Patient has been extremely nauseous and has had a dramatic decrease in p.o. intake. He also noticed MARX, but denies any orthopnea, edema or resting SOB. He performed a COVID
test at home before he saw his PCP yesterday that was negative. In the PCPs office he was noted to be in A-fib with RVR and no known history of A-fib. Patient was sent to [facility] ER where he had a CT of the chest that showed no evidence of PE. There
was a minimal posterior left pleural effusion and no suggestion of pulmonary edema. His proBNP was 1450. Patient was given Lasix 40 mg IV x 1 and does not feel any symptomatic improvement. Patient complains of ongoing sore throat and a repeat
COVID swab was negative and influenza screening was negative as well. He says throat pain is worse with swallowing. Denies chest pain or palpitations.
Progress Note - Copy And Print Associate
Subjective
Date of Service: May 16, 2024
No acute overnight events. No palpitations. Main concern is weakness/deconditioning.
Objective
Labs:
05/16/24 04:19
05/16/24 04:19
Labs
Hgb 10.5 g/dL (13.0-18.0) L 05/16/24 04:19
Hct 31.6 % (39.0-52.0) L 05/16/24 04:19
Plt Count 345 10^3/uL (130-400) 05/16/24 04:19
Sodium 135 mmol/L (135-145) 05/16/24 04:19
Potassium 4.8 mmol/L (3.5-5.1) 05/16/24 04:19
BUN 23 mg/dl (9-20) H 05/16/24 04:19
Creatinine 1.1 mg/dL (0.7-1.3) 05/16/24 04:19
Glucose 132 mg/dl (70-99) H 05/16/24 04:19
Vital Signs and I&O:
Vital Signs
Temp Pulse Resp BP Pulse Ox
98.0 F 80 16 117/74 95
05/16/24 11:50 05/16/24 12:00 05/16/24 12:00 05/16/24 12:00 05/16/24 08:14
Vital Signs
Temp Pulse Resp BP Pulse Ox
98.0 F 80 16 117/74 95
05/16/24 11:50 05/16/24 12:00 05/16/24 12:00 05/16/24 12:00 05/16/24 08:14
Intake & Output
05/14/24 05/15/24 05/16/24 05/17/24
06:59 06:59 06:59 06:59
Intake Total 500 / 500 250 / 250
Output Total 1500 / 1500 1175 / 1175 1150 / 1150
Balance -1500 / -1500 -675 / -675 -900 / -900
Physical Exam
Physical Exam
Gen: NAD, AAOx3
HEENT: NC/AT, sclera anicteric
Neck: No JVD
CV: Irregularly irregular, NL s1/s2, no M/R/G
Lungs: CTAB
Abd: S/ND
Ext: No LE edema
Skin: Warm, dry
Neuro: Non-focal
--- NOTE | 2024-05-16 15:07 | PTCARENOTE ---
Patient for discharge. After providing instructions, patient stated his pharmacy called him and asked for a substitute for pantoprazole. Dr Rosas notified; he stated he sent over updated Rx to the pharmacy. New med list printed and provided to
patient. PT provided RW and commode to patient. Patient's son in room and stated that he can help his father on discharge. Patient stated his daughter can help as well. He stated [facility] will be coming out Saturday.
--- NOTE | 2024-05-16 16:40 | W.DCSUMMARY ---
Discharge Summary
Discharge Data
Date of Admission: 05/05/24
Date of Discharge: 05/16/24
-
Pending Results: No
Hospital Course
Discharging Physician : Ronny Rosas DO
Disposition : Home with home VN
Principal Discharge diagnosis : AF/AFL (new onset), UGIB secondary to PUD and NSAID use, symptomatic acute blood loss anemia, nausea and vomiting from GLP-1 agonist
Chronic Discharge diagnosis : BPH, obesity
Hospital Course :
69-year-old male that presented to the hospital with nausea and vomiting while on GLP-1 agonist, and downtrending hemoglobin counts. Was noted to be using NSAIDs prior to arrival to the hospital. With downtrending hemoglobin and dark stools
concerning for upper GI bleed was started on IV PPI therapy and anticoagulants held. CBC down trended from hemoglobin near 12-8.5 on the hospitalization. Underwent EGD on 05/08/2024 which showed multiple linear gastric ulcers with pigmented
material, largest of which 30 mm in largest dimension. Underwent vaporization for bleeding prevention using bipolar probe. Blood counts stabilized following the procedure, patient was recommended to avoid NSAIDs. Gastroenterology recommended EGD
2 months after first study to reassess in the outpatient setting. Was continued on oral PPI therapy twice daily at time of discharge.
Developed irregular tachycardia with ECG and telemetry showing new onset AF. Also had periods that seem more consistent with AFL. Was started on to amiodarone load and received 8.8 g of amiodarone in the hospital. Was started on metoprolol and
Eliquis for anticoagulation. Blood counts remained stable while on Eliquis after temporization of UGIB. Underwent DCCV x 2 on 05/07 and 05/12 which were both initially successful however patient reverted back to AF/AFL within 24 hours of each
cardioversion. Beta-layton was uptitrated for rate control and patient remained in AF/AFL with controlled rate at time of discharge. Recommended follow-up in the office with higher level teaching assistant for consideration of repeat DCCV versus cardiac ablation
with EP (may need EP study, PVI versus CTI).
He had ongoing symptoms of dyspnea and fatigue with hemoglobin count stable and range of 8.5. Trialed blood transfusions with 2 units of PRBC for treatment of symptomatic anemia with improvement. Blood counts at time of discharge were up to 10.6
and symptoms were improved. Iron panel and B vitamin testing were negative for signs of deficiencies. Patient was given a CBC to have performed 1 week after discharge from the hospital.
Of note, during his hospitalization he was noted to have oxygen desaturations while sleeping with SpO2 at times in the mid to high 80s. Does have smoking history. Provided pulmonology follow-up at discharge for sleep study and pulmonary function
tests.
Important imaging findings :
Chest CT 05/05/24:
FINDINGS: Intravenous contrast-enhanced CT angiography of the chest is performed with protocol designed for evaluation for pulmonary embolism. Source axial images are reviewed as well as 3-D volume and multiplanar reconstructions. Automatic
exposure control radiation dose reduction technology was utilized. The pulmonary arteries are well-opacified with no evidence for pulmonary embolism.
The thoracic aorta is also well opacified with no evidence for thoracic aortic dissection or aneurysm. Mild calcific atherosclerotic disease. 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
considered normal variation. Mild to moderate calcific atherosclerotic disease at the origin of left subclavian artery, but appears to result in less than 50% diameter reduction. Mild calcification involving the proximal right subclavian artery with
less than 25% diameter reduction.
There is a minimal posterior left pleural effusion. Parenchymal opacity within the left lower lung, mainly inferiorly with band-shaped morphology, and morphology is suggestive of atelectasis. Pneumonia is a less likely differential consideration
based on this morphology. There is no significant right pleural effusion. Linear densities within the posterior and inferior right lower lobe, appearance compatible with linear atelectasis.
There are linear and wedge-shaped densities within the anteromedial left upper lobe and lingula, also compatible with atelectasis. In the lower lobes bilaterally, greater on the left compared to the right, there is suggestion of bronchial wall
thickening and narrowing of the diameter of the bronchi, findings suggestive of bronchitis. There is no evidence for bronchiectasis.
No evidence for dominant nodule from the visualized thyroid gland. There are no significantly enlarged mediastinal or hilar lymph nodes. In the visualized upper abdomen, fatty infiltration of the liver.
Minimal reverse S-shaped scoliosis of the thoracic spine. Mild to moderate changes of degenerative disc disease within the thoracic and visualized lower cervical spine. Mild degenerative change of the right sternoclavicular joint with mild to
moderate degenerative change of the left sternoclavicular joint.
ZIYAD 05/07/24
CONCLUSIONS
Normal left ventricular size, wall thickness and systolic function.
No regional wall motion abnormalities are seen. The ejection fraction is estimated at 55-60%.
Normal right ventricular size and function.
No thrombus detected in the left atrial appendage.
Mild mitral regurgitation.
Mild tricuspid regurgitation.
Estimated pulmonary artery pressure is 24 mmHg assuming right atrial pressure of 3 mmHg.
Procedure findings :
EGD 05/08/24:
A small hiatal hernia was present.
Many non-obstructing non-bleeding linear gastric ulcers with pigmented material were found in the gastric fundus, in the gastric body and at the incisura. The largest lesion was 30 mm in largest dimension.
There is no evidence of perforation. Biopsies were taken with a cold forceps for Helicobacter pylori testing. Estimated blood loss was minimal.
Vaporization for bleeding prevention using bipolar probe was successful.
Estimated blood loss was minimal.
The examined duodenum was normal.
Follow-up: PCP, cardiology, pulmonology, gastroenterology
Discharge Plan
-
Patient Disposition: Home (Routine Discharge)
Discharge Diagnosis/Procedures: Atrial fibrillation/atrial flutter
Peptic ulcer disease secondary to NSAID use
Upper gastrointestinal bleeding
Nausea and vomiting secondary to GLP-1 usage
QTc prolongation secondary to amiodarone
Condition: Good
Diet: No restrictions
Activity: As tolerated
Driving Restrictions: No driving for 24 hours
Bathing Restrictions: None
Blood Work: CBC in 1 week to recheck your blood counts
Others Tests: EGD in 2 months with amusement park entertainer, in office
Activity Restrictions/Additional Instructions:
After discharge from the hospital schedule follow-up appointments as below:
-Family doctor within 1 to 2 weeks of discharge
-Business Excellence Manager appointment on 05/29/2024 at 2 PM
-Schedule follow-up appointment with gastroenterology for EGD in June
-Schedule appointment with environmental scientist for sleep study and PFTs
Instructions: Overview of heart arrhythmias
Referrals:
Rudy Prabhakar MD [Active] - (call to arrange 3-4 week follow up with Dr. Prabhakar/JESSA will need repeat EGD in 2months )
Shannon Giraldo PA-C [Family Provider] -
Natalee Matos CRNP [Specified Professional Personl] - 05/29/24 2:00 pm (You have a cardiology follow-up appointment at the [facility] office. Please call with questions)
El Leon MD [Active] - in two weeks
Additional Discharge Medication Instructions: Start metoprolol succinate 25 mg once in the morning and once in the evening
Start Eliquis 5 mg once in the morning and once in the evening
Start amiodarone 200 mg once in the morning and once in the evening until changed by your higher level teaching assistant
Start Omeprazole 40 mg once in the morning and once in the evening
Avoid NSAIDs (ibuprofen, naproxen, meloxicam), you are able to take Tylenol as this is not an NSAID
Prescriptions:
New
Eliquis 5 mg Tablet
5 mg PO BID 30 Days Qty: 60 0RF
metoprolol succinate 25 mg Tablet Extended Release 24 Hr
25 mg PO BID 30 Days Qty: 60 0RF
amiodarone 200 mg tablet
200 mg PO BID 30 Days Qty: 60 0RF
omeprazole 40 mg capsule,delayed release(DR/EC)
40 mg PO BID 30 Days Qty: 60 0RF
Continued
tamsulosin [Flomax] 0.4 mg Capsule
0.8 mg PO QPM
finasteride 5 mg Tablet
5 mg PO QPM
Discharge Orders:
Discharge Patient (As Directed); Ordered 05/16/24
Ordered By: Ronny Rosas
Discharge Date and Time
Discharge Date/Time: 05/16/24 16:08
Print Language: SAMOAN
== END 2024-05-16 16:08 | disposition home health service (06) | DRG 308 ==
LOC: IMU 22:05
PROVIDERS: Clinical Nurse Specialist Family Health; Internal Medicine; Internal Medicine Cardiovascular Disease; Internal Medicine Gastroenterology; Nurse Practitioner Adult Health; Physician Assistant; Registered Nurse; Specialist; ADMITTING PHYSICIAN Hospitalist; ATTENDING PHYSICIAN Internal Medicine; CONSULT PHYSICIAN Internal Medicine; CONSULT PHYSICIAN Internal Medicine Cardiovascular Disease; EMERGENCY PHYSICIAN Emergency Medicine; FAMILY PHYSICIAN Physician Assistant
PROC: B24BZZ4 Ultrasonography of Heart with Aorta, Transesophageal (ICD-10-PCS; 2024-05-07)
PROC: 0DB68ZX Excision of Stomach, Via Natural or Artificial Opening Endoscopic, Diagnostic (ICD-10-PCS; 2024-05-08)
PROC: 5A2204Z Restoration of Cardiac Rhythm, Single (ICD-10-PCS; 2024-05-12)
PROC: 30233N1 Transfusion of Nonautologous Red Blood Cells into Peripheral Vein, Percutaneous Approach (ICD-10-PCS; 2024-05-14)
DX: I48.19 Other persistent atrial fibrillation (principal); I50.31 Acute diastolic (congestive) heart failure; K85.90 Acute pancreatitis without necrosis or infection, unspecified; K25.0 Acute gastric ulcer with hemorrhage; J98.11 Atelectasis; D62 Acute posthemorrhagic anemia; I48.92 Unspecified atrial flutter; N40.0 Benign prostatic hyperplasia without lower urinary tract symptoms; K44.9 Diaphragmatic hernia without obstruction or gangrene; T39.395A Adverse effect of other nonsteroidal anti-inflammatory drugs [NSAID], initial encounter; E66.9 Obesity, unspecified; Z68.37 Body mass index [BMI] 37.0-37.9, adult; Z87.891 Personal history of nicotine dependence
CPT/HCPCS: 88305; 71046; 71275; 80048; 80053; 80061; 82607; 82728; 82746; 82962; 83540; 83550; 83605; 83690; 83735; 83880; 84100; 84443; 84484; 85014; 85018; 85025; 85027; 86850; 86900; 86901; 86920; 87070; 87502; 87811; 87880; 88342; 92960; 93005; 93312; 93320; 93325; 97116; 97166; 97530; P9016; Q9967

== ENCOUNTER → 2024-05-25 09:15 | Outpatient (REF) | payer MEDICARE, BC, SELFPAY ==
[2024-05-25 12:48] LABS: % Basophils 0.2 % (0-2); % Eosinophils 1.7 % (0-6); % Immature Granulocytes 0.4 % (0-0.5); % Monocytes 8.1 % (1.7-9.3); % Neutrophils 71.6 % (42.2-75.2); Absolute Eosinophils 0.1 10^3/uL (0-0.7); Absolute Lymphocytes 1.5 10^3/uL (1.2-3.4); Absolute Monocytes 0.7 10^3/uL (0.1-0.6); Absolute Neutrophils 5.8 10^3/uL (1.4-6.5); Hematocrit 33.8 % (39.0-52.0); Mean Corp Hgb Conc. 32.5 g/dL (33.0-37.0); Mean Corpuscular Hgb 30.6 pg (27.0-31.0); Mean Corpuscular Volume 94.2 fL (80.0-94.0); Mean Platelet Volume 10.5 fL (7.4-10.4); Nucleated Red Blood Cells % 0 % (-); Platelet Count 307 10^3/uL (130-400); Red Blood Cell Count 3.59 10^6/uL (4.70-6.10); Red Cell Dist. Width 14.1 % (11.5-14.5); White Blood Cell Count 8.2 10^3/uL (4.8-10.8)
== END ==
LOC: CLAB 09:15
PROVIDERS: ATTENDING PHYSICIAN Physician Assistant; OTHER PHYSICIAN Internal Medicine Critical Care Medicine; OTHER PHYSICIAN Nurse Practitioner; OTHER PHYSICIAN Specialist
DX: D62 Acute posthemorrhagic anemia (principal)
CPT/HCPCS: 36415; 85025

== ENCOUNTER 2024-05-26 06:35 | Inpatient (IN) | payer MEDICARE, BC, SELFPAY ==
[2024-05-26] VITALS (17 sets, daily range): BP systolic 93–126; BP diastolic 54–94; PULSE 2–110; BMI 35.6; BMI 34.0
[2024-05-26 03:25] LABS: Venous Blood Gas B.E. 3.9 mmol/L (-4 to +4); Venous Blood Gas HCO3 31.7 mmol/L (22-27); Venous Blood Gas O2 Sat % 99.3 %; Venous Blood Gas pCO2 63 mmHg (35-48); Venous Blood Gas pH 7.31 (7.32-7.43); Venous Blood Gas pO2 116 mmHg (30-50)
[2024-05-26 03:32] LABS: % Basophils 0.3 % (0-2); % Eosinophils 1.2 % (0-6); % Immature Granulocytes 0.5 % (0-0.5); % Lymphocytes 10.9 % (20.5-51.1); % Monocytes 7.5 % (1.7-9.3); % Neutrophils 79.6 % (42.2-75.2); Absolute Eosinophils 0.1 10^3/uL (0-0.7); Absolute Immature Granulocytes 0.1 10^3/uL (0-0.05); Absolute Lymphocytes 1.1 10^3/uL (1.2-3.4); Absolute Monocytes 0.8 10^3/uL (0.1-0.6); Absolute Neutrophils 8.3 10^3/uL (1.4-6.5); Hematocrit 36.2 % (39.0-52.0); Hemoglobin 11.6 g/dL (13.0-18.0); Mean Corpuscular Volume 96.8 fL (80.0-94.0); Mean Platelet Volume 9.5 fL (7.4-10.4); Nucleated Red Blood Cells % 0 % (-); Platelet Count 292 10^3/uL (130-400); Red Blood Cell Count 3.74 10^6/uL (4.70-6.10); Red Cell Dist. Width 14.2 % (11.5-14.5); White Blood Cell Count 10.4 10^3/uL (4.8-10.8)
--- NOTE | 2024-05-26 03:45 | ED.GENMED ---
History of Present Illness
General
Chief Complaint: Breathing Problem
Time Seen by Provider: 05/26/24 03:06
History of Present Illness
History of Present Illness:
69-year-old male with history of A-fib on Eliquis/amiodarone/metoprolol presenting to the emergency department for shortness of breath. Prior to arrival he had difficulty laying flat and was feeling very short of breath. Denies cough or fever.
Notes recent hospitalization with recent diagnosis of A-fib. On review of EMR, admitted from 05/05-05/16 for an upper GI bleed, found to be in new onset A-fib, cardioverted x 2 with persistence of symptoms. Patient reports overall he was feeling okay
until yesterday. Denies any swelling in his legs. Reports remote history of smoking in the past. Denies any associated chest pain. Denies additional acute medical complaints
Past History
Past History
ED Past Medical History: None
ED Past Surgical History: None
Phy Exam
Physical Exam
Physical Exam:
General: Well-appearing, no clinical signs of dehydration, nontoxic and in no acute distress
HEENT: protecting airway
Neck: appears supple
CV: Tachycardic, irregular irregular rhythm, no evidence of cyanosis
Resp: Increased work of breathing with tachypnea and retractions, diminished air movement bilaterally
Abd: Soft and non-distended, no tenderness to palpation
Extremities: No deformities, no swelling, no erythema, pulses and sensation intact
Neuro: alert, no focal neurologic deficit
: deferred
Rectal: deferred
Psych: Normal affect
Skin: Intact
Scores
Heart Failure Risk
Heart Failure Risk Score: Yes
History of Stroke or TIA: No
History of intubation for respiratory distress: No
Heart rate on ED arrival >/= 110: Yes
SaO2 <90% on arrival on room air: Yes
HR >/=110 during 3min walk test (or too ill to perform test): Yes
ECG has acute ischemic changes: No
Urea >/=12mmol/L (BUN 33.6mg/dL): No
Serum CO2>/=35mmol/L: Yes
Troponin I or T elevated to CO Level (0.4mg/dL): No
NT-proBNP >/=5,000ng/L (5,000pg/ml): No
HF Risk Score: 5
Admission Status: VERY HIGH RISK 39.8% Consider admission to hospital
Course
Orders/Labs/Results
Orders:
Orders
05/26/24 03:10
EKG [Electrocardiogram (*1)] Urgent
Reason for Study: Shortness of Breath
EKG- Treatment ONCE
05/26/24 03:16
CR Chest Portable - 1 View Urgent
Reason For Exam: SOB
05/26/24 03:17
Complete Blood Count/With Diff Urgent
Comprehensive Metabolic Panel Urgent
Venous Blood Gas Urgent
%Oxygen/Room Air: 30
05/26/24 03:24
COVID-19 Antigen Urgent
Source: Nasal Swab
NT-proBNP Urgent
Prothrombin Time Urgent
Troponin I Urgent
Influenza A+B Rapid Molecular Urgent
ELVIN Source: Nasal Swab
Specimen Description:
05/26/24 04:43
Furosemide [Lasix] 40 mg IV NOW STA
05/26/24 05:00
Flush (0.9% Sodium Chloride) [Flush (Nss)] See Dose Instructions IV PER PROTOCOL
05/26/24 Breakfast
Cholesterol Lowering
Fluid Restriction: 1800 mL/day (60 oz)
Cholesterol Lowering: Sodium, 2 Gram
05/26/24 06:18
Admit/Transfer Patient As Directed
Co-Sign Provider:
Level of Care: Inpatient admission
Assign to:: IMU- Intermediate Care
Physician / Group: hospitalist
Transfer to: IMU- Intermediate Care
Diagnosis: pulmonary edema
Reason for Hospitalization: heart failure
Expected length of stay greater than two midnights?: Yes
ELOS- Estimated Length of Stay in days: 2
I certify the patient meets the requirements for IP care: Yes
PRN Pain Medication Management As Directed
May give lesser potent ordered pain med per pt: Yes
preference::
Protocol:: Medication orders for pain may be administered in a
manner that supports deferring to patient preference
when the pt is:
- Requesting an ordered lesser potent pain medication.
Least to most potent pain medications are defined
as: acetaminophen < NSAID < tramadol < opioids
(morphine, oxycodone, hydromorphone).
- Requesting a lesser dose of the same medication IF
ORDERED.
- Requesting a less intrusive route of administration
if both routes are prescribed by the provider (PO <
IV).
05/26/24 06:19
Code Status As Directed
Resuscitation Status: Full Code
05/26/24 06:47
Acetaminophen [Tylenol] 650 mg PO Q6HPRN PRN
Ondansetron Injectable [Zofran] 4 mg IV Q6HPRN PRN
05/26/24 06:47
CARDIOLOGY CONSULT Routine
Consulting Provider: Joseph Danielson
Was physician already notified: No
Reason for consult: acute pulmonary edema
Consult Notification Routine
Specialty to Notify: Cardiology
HF DIETARY CONSULT Routine
HF EDUCATOR CONSULT Routine
Comment:
VTE Contraindication Routine
VTE Mechanical Device Contraindication: Medical Contraindication
Pharmocologic Contraindication: Medical Contraindication
Activity As Directed
Activity Level: With Assistance
Intake/ Output As Directed
Frequency: Per unit guidelines
Patient Education As Directed
Type: CHF folder
Comment: give on admission. Document in Interdisciplinary Education record
Sleep Apnea Assessment by RN As Directed
Comment:
Physician Instructions:
Vital Signs As Directed
Frequency: Other
Additional Instructions:: Q12 or per unit guidelines if more frequent.
Weight As Directed
Frequency: Daily
Type of Scale: Standing Scale
Comment: Daily morning weight. If unable to stand, use balanced bed scale.
Weight As Directed
Frequency: Once
Type of Scale: Standing Scale
Comment: Upon Admission. If unable to stand, use balanced bed scale.
O2 Therapy [RESP] Routine
Nasal Cannula Liter Flow: 4 LPM
Titrate/Wean O2 to maintain O2 sat greater than (%): 93
Pulse Ox/cont/shift [RESP] Routine
Quantity: 1
Special Instructions: Daily pulse oximetry at rest. If greater than 92% at rest also obtain pulse oximetry
while ambulating as tolerated.
05/26/24 08:00
Amiodarone [Pacerone] 200 mg PO BID
Apixaban [Eliquis] 5 mg PO BID
Furosemide [Lasix] 40 mg IV BID AT 0800,1600
Metoprolol Xl [Toprol Xl] 25 mg PO BID
05/26/24 09:30
D-Dimer Routine
Troponin I Q6H
Comment: at admission & every 6 hours x 2 (3 total), ECG to be done with each level
05/26/24 15:30
Troponin I Q6H
Comment: at admission & every 6 hours x 2 (3 total), ECG to be done with each level
05/26/24 18:00
Finasteride [Proscar] 5 mg PO QPM
Tamsulosin [Flomax] 0.8 mg PO QPM
05/26/24 22:00
omeprazole 40 mg PO HS
Abnormal Lab Results
05/26/24 05/26/24
03:17 03:24
RBC 3.74 L 10^6/uL
(4.70-6.10)
Hgb 11.6 L g/dL
(13.0-18.0)
Hct 36.2 L %
(39.0-52.0)
MCV 96.8 H fL
(80.0-94.0)
MCHC 32.0 L g/dL
(33.0-37.0)
Abs Immat Gran (auto) 0.1 H 10^3/uL
(0-0.05)
Absolute Neuts (auto) 8.3 H 10^3/uL
(1.4-6.5)
Absolute Lymphs (auto) 1.1 L 10^3/uL
(1.2-3.4)
Absolute Monos (auto) 0.8 H 10^3/uL
(0.1-0.6)
Neutrophils % 79.6 H %
(42.2-75.2)
Lymphocytes % 10.9 L %
(20.5-51.1)
PT 16.6 H Sec
(11.4-14.6)
VBG pH 7.31 L
(7.32-7.43)
VBG pCO2 63 H mmHg
(35-48)
VBG pO2 116 H mmHg
(30-50)
VBG HCO3 31.7 H mmol/L
(22-27)
Glucose 153 H mg/dl
(70-99)
05/26/24 03:17
05/26/24 03:17
Vital Signs
Initial and Last Documented VS:
Initial Vital Signs
Temp Pulse Resp BP Pulse Ox
98.3 F 105 24 120/94 92
05/26/24 03:05 05/26/24 03:05 05/26/24 03:05 05/26/24 03:05 05/26/24 03:05
Last Documented Vital Signs
Temp Pulse Resp BP Pulse Ox
98.3 F 104 15 104/72 95
05/26/24 03:05 05/26/24 06:45 05/26/24 06:45 05/26/24 06:00 05/26/24 06:27
MDM/Problems Addressed
MDM/Problems Addressed:
69-year-old male with history of A-fib presenting for shortness of breath. Vital signs on arrival significant for hypoxia and tachycardia.
On exam, patient is in mild to moderate respiratory distress with increased work of breathing, retractions. Patient arrives in A-fib, however relatively rate controlled. For this reason do not suspect that this is the sole reason for patient's
dyspnea. Patient has been in A-fib since recent hospital admission, failed cardioversion. Patient may be developing acute heart failure. Will obtain laboratory analysis and chest x-ray imaging. Infectious pathology is also consideration, will
send viral swabs. From a respiratory standpoint, O2 increased on nasal cannula, however continued to have increased respiratory effort so will place on BiPAP. PE is a consideration, however patient had CT chest imaging on 05/05, negative for PE.
04:40 -patient's labs are relatively unremarkable. Chest x-ray does show concern for pulmonary edema. On reassessment, much more comfortable on BiPAP. Plan for admission for continued cardiac consultation regarding uncontrolled atrial
fibrillation. Will administer Lasix
*EKG
Interpreted by ED Provider?: Yes
EKG Intrepretation Date: 05/26/24
EKG Intrepretation Time: 03:48
Interpretation: normal
Comparison EKG: no changes (05/13/24)
Heart Rate: 109
Rate: tachycardiac
Rhythm: atrial flutter
[place]: normal axis
QRS Pattern: normal QRS
Ischemia: no ischemia
*Critical Care Note
Total Time (30-74mins, 75-104mins- exclusive of procedures): Not Applicable
ED Attending Note
-
Portions of this chart may have been created with voice recognition software.� Occasional wrong word or��sound alike� substitutions may have occurred due to the inherent limitations of voice recognition software.
Discharge Plan
Departure
Patient Disposition: Admit
Date of Disposition: 05/26/24
Time of Disposition: 04:46
Presentation/result/management discussed w/ accepting MD/DO: Hospitalist
Patient with high blood pressure during this ER visit?: No
Condition: Fair
Discharge Problem:
Acute dyspnea, Atrial flutter, Pulmonary edema
Interventions
Interventions:
*Risk Screen - Suicide Last Done: 05/26/24 03:10
*General Assessment Last Done: 05/26/24 03:10
*Neglect/Abuse Screening Last Done: 05/26/24 03:10
ED- Fall Risk Assessment Last Done: 05/26/24 03:16
*ED COVID-19 Vaccine History Last Done: 05/26/24 03:14
ED- Cardiac Assessment Last Done: 05/26/24 03:30
ED- Pulmonary Assessment Last Done: 05/26/24 03:30
[2024-05-26 03:52] LABS: INR 1.32; PT 16.6 Sec (11.4-14.6)
[2024-05-26 03:54] LABS: COVID-19 Antigen Negative (Negative)
[2024-05-26 03:55] LABS: ALT (SGPT) 26 U/L (0-50); AST (SGOT) 20 U/L (17-59); Albumin 4.2 g/dl (3.5-5.0); Alkaline Phosphatase 56 U/L (38-126); Blood Urea Nitrogen 17 mg/dl (9-20); Calcium 9.1 mg/dl (8.4-10.2); Carbon Dioxide 29 mmol/L (22-30); Chloride 98 mmol/L (98-107); Estimated Creatinine Clearance 115 ml/min; Glucose 153 mg/dl (70-99); Potassium 4.2 mmol/L (3.5-5.1); Sodium 138 mmol/L (135-145); Total Bilirubin 0.8 mg/dl (0.2-1.3); Total Protein 6.9 g/dl (6.3-8.2); eGFR > 60.00
[2024-05-26 04:24] LABS: NT-proBNP 511 pg/ml; Troponin I < 0.012 ng/ml
[2024-05-26] MEDS: LASIX 40 MG IV (04:53)
--- NOTE | 2024-05-26 06:03 | HPS.HSE ---
Family Physician
-
Family Physician: Shannon Giraldo
Chief Complaint
-
Acute shortness of breath
History of Present Illness
This is a 69-year-old with past medical history significant for hypertension, tobacco use, recent episode of peptic ulcer induced GI bleed complicated by new onset atrial fibrillation ultimately status post attempted cardioversion that failed and is
now on amiodarone and Eliquis since May 10 presents to the emergency department with acute episode of shortness of breath.
Patient reports that since this discharge is always have some shortness of breath but did not require oxygen. He has some dyspnea on exertion. During his last admission he was treated very briefly a week Lasix but then later felt to be euvolemic
and Lasix discontinued. Reports he was seen by visiting nurse in the morning will listen to his lungs and said it was fairly quiet. They have does not was not concerned about pulmonary edema or peripheral edema at that time. Patient was doing
okay. Denies coughing, fevers chills or wheezing. He does not use a CPAP. When he tried to lay down later in the evening he became severely short of breath. He could not catch his breath. He reports dyspnea on exertion and severe orthopnea. He
denies any ankle edema. He denies any increased abdominal girth. He was not measuring his weight and cannot tell if there has been with increased. He denies having any chest pain nausea vomiting or diaphoresis. He reports occasional palpitations
but denies any sense of rapid heart rate or lightheadedness. He has been compliant with his Eliquis. Due to his shortness of breath he was concerned about a blood clot and called EMS.
In the ED he was afebrile, he was on BiPAP Satting 94% on 4 L. Blood pressure was 126/77, heart rate was 108, respiratory rate was 16. His troponin was negative. BNP was 511. ECG shows atrial fibrillation at rate of [address] or T
wave changes. Blood gas shows acute on chronic respiratory acidosis with pH 7.31 CO2 63 and a bicarb of 30. INR 1.3. COVID test negative, influenza negative.
X-ray shows increased vascular markings as well as some increased interstitial thickening consistent with interstitial pulmonary edema. No pleural effusions noted. Awaiting final read.
Medical History
Past Medical History
Past Medical History: Reports Arrhythmia (Persistent atrial fibrillation on anticoagulation), GERD (Peptic ulcer disease in the setting of NSAID complicated by GI bleed), HTN and Other (Obesity, BPH)
Past Surgical History: Reports Orthopedic (Left hip replacement)
Social History
Tobacco: Former Smoker
Alcohol: Occasional
Drug: None
Personal: Single
Living: With Family
Family History
Family History: Not pertinent
Allergies / Home Medications
Allergies reflects when Allergies were last updated in [employer].
Home Medications with original date entered in [employer]
Allergy/Medication List:
Allergies
Allergy/AdvReac Type Severity Reaction Status Date / Time
No Known Allergies Allergy Verified 05/26/24 03:15
Home Medications
finasteride 5 mg tablet 5 mg PO QPM 05/05/24
tamsulosin 0.4 mg capsule (Flomax) 0.8 mg PO QPM 05/05/24
amiodarone 200 mg tablet 200 mg PO BID Arrhythmia 1 month #60 tabs 05/16/24
apixaban 5 mg tablet (Eliquis) 5 mg PO BID Blood clot prevention/tx 1 month #60 tabs 05/16/24
metoprolol succinate 25 mg tablet,extended release 24 hr 25 mg PO BID Arrhythmia 1 month #60 tabs 05/16/24
omeprazole 40 mg capsule,delayed release 40 mg PO HS Gastrointestinal issue 05/26/24
Review of Systems
-
History Source: Patient
Constitutional: Reports No Symptoms
EENT: Reports No Symptoms
Respiratory: Reports Trouble Breathing
Cardiac: Reports No Symptoms
Abdomen/GI: Reports No Symptoms
: Reports No Symptoms
Musculoskeletal: Reports No Symptoms
Skin: Reports No Symptoms
Neurological: Reports No Symptoms
Endocrine: Reports No Symptoms
Hematologic/Lymphatic: Reports No Symptoms
Psych: Reports No Symptoms
Physical Exam
Vital Signs
Vital Signs
Temp Pulse Resp BP Pulse Ox
98.3 F 108 16 126/77 92
05/26/24 03:05 05/26/24 04:53 05/26/24 04:00 05/26/24 04:53 05/26/24 04:00
Physical Exam
General: Well Developed, Well Nourished and Respiratory Distress
HEENT: NormoCephalic, Anicteric, Moist mucous membranes and Atraumatic
Respiratory: Decreased Breath Sounds
Cardiac: S1/S2 and Irregular Rhythm
Breast: Deferred by me
GI: Soft, Non Tender and Normal Bowel Sounds
Rectal: Deferred by Provider
Genito-urinary: Deferred by me
Musculoskeletal: No Clubbing, No Cyanosis and No Edema
Skin: Warm and Dry
Neuro: AO x 3 and Nonfocal/grossly intact
Hematologic/Lymphatic: No Lymphadenopathy
Psych: Calm
Laboratory Results
-
05/26/24 03:17
05/26/24 03:17
Laboratory Results
PT 16.6 Sec (11.4-14.6) H 05/26/24 03:24
INR 1.32 05/26/24 03:24
Total Bilirubin 0.8 mg/dl (0.2-1.3) 05/26/24 03:17
AST 20 U/L (17-59) 05/26/24 03:17
ALT 26 U/L (0-50) 05/26/24 03:17
Alkaline Phosphatase 56 U/L (38-126) 05/26/24 03:17
Troponin I < 0.012 ng/ml 05/26/24 03:24
Data Reviewed
-
Diagnostic Radiology: Image Personally Visualized and interpreted
Medical Tests (Nuc Med, Echo, EKG etc): Image Personally Visualized and interpreted
Lab Data: Labs Reviewed by me
Old Records: Reviewed
Impression/Plan
-
IMPRESSION:
69-year-old with persistent atrial fibrillation since his discharge in early May, on amiodarone and apixaban presenting to the emergency department with episode of severe orthopnea and shortness of breath and hypoxia. Requires BiPAP and found
to have acute on chronic respiratory acidosis and hypoxemia. Currently satting 94% on 4 L on BiPAP. Chest x-ray suggest pulmonary edema with increased interstitial markings and cephalization. Patient has no fever chills cough. COVID and
influenza test were negative. He has no peripheral edema and no significant JVD on exam. Suspect flash pulmonary edema however patient was not hypotensive for EMS and on arrival in the emergency department. He was also not particularly
tachycardic. Heart rate has been in the 110s range. He may be tachycardic when active but at rest he appears to have reasonable amount of rate control. BNP is elevated and positive given his obesity. ZIYAD May 07 was fairly benign with
preserved EF of. 5 to 60%, normal right ventricle size and function, estimated pulmonary pressure of 24. Mild regurgitation and no thrombus.
PLAN:
1. SOB/Hypoxia -picture consistent with acute CHF exacerbation. Patient as stated above does not appear to be significantly volume overloaded on hide normal ejection fraction and cardiac function overall on ZIYAD 3 weeks ago. He has been
anticoagulated on apixaban for the last 3 weeks. 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 Unlikely PE given anticoagulation and x-ray findings. He feels markedly improved after BiPAP and diuresis in the emergency department.
- admit to IMU
- continue bipap 14/7 for now, titrate to nasal canula as tolerated
- continue IV lasix 40 bid for now
- rate control with amio and metoprolol
- continue apixaban, check d-dimer, if negative, no furthe pe testing
- seems to have some CO2 retention at baseline likely multifactorial, consider pulm consult after cardiology evaluation
- cardiology consult
[2024-05-26] MEDS: TOPROL XL 25 MG PO (08:23)
[2024-05-26] MEDS: PACERONE 200 MG PO ×2 (08:23→19:46)
[2024-05-26] MEDS: ELIQUIS 5 MG PO ×2 (08:23→19:46)
--- NOTE | 2024-05-26 09:00 | W.PN.UPDATE ---
Update Note
Progress Note Update
Non billable
Acute hypoxic respiratory failure - on BiPAP ~ 4AM, already got trial of lasix dose, wean off Bipap and trial of Midflow.
Pulmonary edema - on cxr, possibly from Aflutter/fib related, ZIYAD on 05/07 showing EF 55-60%. Probnp surprisingly lower at ~ 500 in comparison to 1450 on 05/05. weight is up to 136kg from 133 kg on discharge earlier in the month, thus will benefit
with trial of empiric IV lasix, currently on 40mg/bid. Cardiology has been consulted for further help.
--- NOTE | 2024-05-26 09:25 | CON.CAR ---
Addendum entered and electronically signed by Jae Arroyo MD 05/26/24 13:39:
I saw and examined the patient.
The Alternative Education Teacher's note was reviewed and I agree with the note.
Comment:
GEN: No distress, awake, Ox3
HEENT: supple, anicteric, mmm
LUNGS: CTA, no wheezes/rales
CV: Irreg, S1/S2, / syst LSB, no murmur
ABD: soft, BS+, NT/ND
EXT: No edema
NEURO: Gross non-focal
SKIN: No rash
Plan:
69-year-old male well-known to our service with recent hospitalization for new onset atrial fibrillation/atrial flutter with cardioversion x 2. He was discharged in rate controlled atrial fibrillation. He returns with dyspnea on exertion,
orthopnea, and shortness of breath. He remains in rate controlled atrial flutter by EKG. He was treated with BiPAP and improved.
Continue amiodarone. Increase Toprol to 50 mg p.o. twice daily and watch for hypotension.
Will continue diuresis with IV Lasix 40 mg IV twice daily. Continue Eliquis.
Will discuss with electrophysiology timing of possible PVI/flutter ablation.
Not sure the utility of another cardioversion although he will have had several weeks of amiodarone therapy.
Hemoglobin currently stable at 11-12.
Original Note:
Consultation
Consultation Request
Date/Time Consultation Requested: 05/06/24
Date/Time Consultation Performed: 05/06/24
Requesting Provider: Dr. Allison
Performing Provider: Lazara Zaidi PA-C for Dr. Willis
Reason for Consultation: SOB
Medical History
-
Chief Complaint: SOB
History of Present Illness:
Patient had recent admission to 05/05-05/16/24 for gi bleed requiring transfusion secondary to gastric ulcers by EGD, new onset afib s/p CV 05/07 and 05/12 with recurrence, loaded with amiodarone. At time of discharge he was in afib with controlled
ventricular response. He was not discharged on lasix, although did receive lasix earlier in that admission. Patient reports he has not slept well the last 2 weeks. States in last 48 hours dyspnea significantly worsened specifically with exertion and
reports orthopnea. Denies palpitations or chest pain, weight gain or LE edema. Remains in what appears to be a rate controlled aflutter by EKG. ProBNP 511. Initially required bipap in ER, now weaned to supp O2. He reports good urine output since
receiving lasix in ER. No issues with GI bleeding since DC by patient report.
PMH:
Recent admission to 05/05-05/16/24 for new paroxysmal Afib, HFpEF, GI bleed with gastric ulcers/anemia
BPH
Obesity
BPH
Suspected ADRIANNA
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
Past Medical History
Past Medical History: Other (in HPI)
Past Surgical History: Orthopedic
Social History
Tobacco: Former Smoker
Alcohol: None
Drug: None
Personal:
Living: With Family
Employment: Retired
Family History
Family History: CAD (father with CABG)
Allergies / Home Medications
Allergy/AdvReac Type Severity Reaction Status Date / Time
No Known Allergies Allergy Verified 05/26/24 03:15
�Medication �Instructions �Recorded �Confirmed �Type
finasteride 5 mg tablet 5 mg PO QPM 05/05/24 05/26/24 History
tamsulosin 0.4 mg capsule (Flomax) 0.8 mg PO QPM 05/05/24 05/26/24 History
amiodarone 200 mg tablet 200 mg PO BID Arrhythmia 1 month 05/16/24 05/26/24 Rx
#60 tabs
apixaban 5 mg tablet (Eliquis) 5 mg PO BID Blood clot 05/16/24 05/26/24 Rx
prevention/tx 1 month #60 tabs
metoprolol succinate 25 mg 25 mg PO BID Arrhythmia 1 month 05/16/24 05/26/24 Rx
tablet,extended release 24 hr #60 tabs
omeprazole 40 mg capsule,delayed 40 mg PO HS Gastrointestinal issue 05/26/24 05/26/24 History
release
Review of Systems
-
History Source: Patient
All other systems: Negative unless noted
Physical Exam
Vital Signs
Temp Pulse Resp BP Pulse Ox
98.3 F 100 20 122/78 98
05/26/24 03:05 05/26/24 08:23 05/26/24 07:00 05/26/24 08:23 05/26/24 08:52
Lab Results
05/26/24 03:17
05/26/24 03:17
Troponin I < 0.012 ng/ml 05/26/24 03:24
Qtk-V-Npspyakiudm Pept 511 pg/ml 05/26/24 03:24
Physical Exam
General: No Apparent Distress, Comfortable and Other (on supp O2)
HEENT: Normocephalic, Anicteric and Moist Mucous Membranes
Respiratory: Non Labored Respirations and Other (decreased BS B/L)
Cardiac: S1/S2 and Irregular Rhythm
GI: Soft, Non Tender, Non Distended and Normal Bowel Sounds
Musculoskeletal: No Clubbing, No Cyanosis and Edema (1+ of B/L LE)
Skin: Warm and Dry
Neuro: AO x 3
Impression / Plan
-
Primary Lead Nurse: Initially seen by Dr. Willis
Assessment:
Presentation with orthopnea, MARX
Acute HFpEF
Acute hypoxic respiratory failure, requiring bipap on admission
Atrial flutter, rate controlled
Recent admission to 05/05-05/16/24 for new paroxysmal Afib, HFpEF, GI bleed with gastric ulcers/anemia
BPH
Obesity
BPH
Suspected ADRIANNA
Former senior living smoker - suspect undiagnosed COPD
Transesophageal echo 05/07/2024 with EF 55 to 60%. Normal RV. Mild MR. Mild TR with PA pressure 24 mmHg
Plan:
-Patient with recent admission to [facility] 05/05 - 05/16/2024 for PAF, heart failure, GI bleed with gastric ulcer/anemia presents back to [facility] with 48 hours of significant dyspnea on exertion/orthopnea.
-Initially required BiPAP in ER, able to be weaned to supplemental O2
-Continue IV lasix, dose given in ER. will require daily dosing upon DC, was not discharged on lasix last admission
-CHF education
-CXR pending
-ZIYAD from 05/07 as above.
-currently in rate controlled aflutter. continue OP toprol, amiodarone 200mg BID. QTc stable by EKG 05/26
-continue eliquis. denies recurrence of bleeding since last admission. hgb 11.6
Data Reviewed
-
EKG: Tracing Personally Visualized and interpreted
Radiology: Image Personally Visualized and interpreted
Medical Tests (Nuc Med, Echo etc): Report Reviewed by me
Labs: Labs Reviewed by me
Old Records: Reviewed
[2024-05-26 11:46] LABS: Troponin I < 0.012 ng/ml
[2024-05-26 12:13] LABS: D-Dimer 0.37 ug/mlFEU (0.00-0.50)
[2024-05-26] MEDS: LASIX IV ×2 (17:24→17:26)
[2024-05-26] MEDS: FLOMAX 0.8 MG PO (17:29)
[2024-05-26] MEDS: PROSCAR 5 MG PO (17:30)
[2024-05-26] MEDS: TYLENOL 650 MG PO (17:30)
[2024-05-26 18:56] LABS: Troponin I < 0.012 ng/ml
[2024-05-26] MEDS: TOPROL XL 50 MG PO (19:47)
[2024-05-26] MEDS: PROTONIX 40 MG PO (23:13)
[2024-05-27] VITALS (14 sets, daily range): BP systolic 83–117; BP diastolic 57–82
--- NOTE | 2024-05-27 | PTCARENOTE ---
Received verbal and written report from NATACHA Xiong. Pt arrived to floor via stretcher. Pt walked from the stretcher to the bed with a steady gate. Pt 95% on 2L NC. aflutter on the monitor. VS and assessment as documented. Hygiene completed. Pt resting
in bed with call zimmer in reach.
--- NOTE | 2024-05-27 05:00 | DOWNTIME ---
There was a [employer] Downtime on 05/27/2024 from 0100 to 05/27/2023 at 0235 . Downtime documentation of patient's care, including medication administrations, has been reconciled in the electronic record per guidelines. Refer to the
patient's paper chart under the miscellaneous tab to see printed paper medication records and downtime forms.
--- NOTE | 2024-05-27 08:52 | VNURNOTE ---
Chart reviewed. Patient is current with [facility] nursing. Will continue to follow hospital course and DC plans.
[2024-05-27] MEDS: TOPROL XL 50 MG PO (09:15)
[2024-05-27] MEDS: ELIQUIS 5 MG PO ×2 (09:15→20:06)
[2024-05-27] MEDS: LASIX 40 MG IV ×2 (09:16→17:34)
[2024-05-27] MEDS: PACERONE 200 MG PO ×2 (09:16→20:06)
[2024-05-27 09:28] LABS: Blood Urea Nitrogen 16 mg/dl (9-20); Calcium 8.9 mg/dl (8.4-10.2); Carbon Dioxide 35 mmol/L (22-30); Chloride 95 mmol/L (98-107); Estimated Creatinine Clearance 112 ml/min; Glucose 101 mg/dl (70-99); Potassium 4.3 mmol/L (3.5-5.1); Sodium 137 mmol/L (135-145); eGFR > 60.00
[2024-05-27 09:52] LABS: Hematocrit 38.5 % (39.0-52.0); Mean Corp Hgb Conc. 33.8 g/dL (33.0-37.0); Mean Corpuscular Volume 91.7 fL (80.0-94.0); Red Cell Dist. Width 14.3 % (11.5-14.5); White Blood Cell Count 7.7 10^3/uL (4.8-10.8)
--- NOTE | 2024-05-27 13:48 | W.PN.HOSP.TC ---
Today's Communication/Plan
-
Transfer to IVU
maintain on IV lasix
f/u weight / cr
Assessment / Plan
Assessment / Plan
Acute hypoxic respiratory failure
-on BiPAP in ER
-CXR showing pulmonary edema
-weaned off on NC
Diastolic HF exacerbation
-weight is up to 136kg from 133 kg on discharge earlier in the month
-Probnp surprisingly lower at ~ 500 in comparison to 1450 on 05/05.
-ZIYAD on 05/07 showing EF 55-60%
-maintain on IV lasix 40mg BID
-f/u weight/cr
Aflultter/fib
-failed CV x2 last visit
-maintain on amiodarone/toprol and eliquis for now
BPH
-continue on finasteride/flomax
GERD
-continue pantoprazole
DVT PPX - eliquis
Full code
Tansfer to IVU
Anticipated Discharge: 24 - 48 hours
Subjective/Interval History
-
Date of Service: May 27, 2024
Breathing subjectively better
Remains on oxygen through nasal cannula
Denies any episode of chest pain/palpitation
Objective Data
-
Labs:
Laboratory Results
05/27/24 05/27/24
09:02 09:25
WBC 7.7
Hgb 13.0
Hct 38.5 L
Plt Count
Sodium 137
Potassium 4.3
Chloride 95 L
Carbon Dioxide 35 H
BUN 16
Creatinine 0.9
Glucose 101 H
Calcium 8.9
Vital Signs:
Vital Signs
Temp Pulse Resp BP Pulse Ox
98 F 103 21 109/77 96
05/27/24 11:05 05/27/24 10:00 05/27/24 10:00 05/27/24 10:00 05/27/24 10:00
I&O
05/26/24 05/27/24 05/28/24
06:59 06:59 06:59
Intake Total 240 / 240 340 / 340
Output Total 750 / 750 1430 / 1430 1150 / 1150
Balance -750 / -750 -1190 / -1190 -810 / -810
Review of Systems
-
Respiratory: Reports No Symptoms
Cardiac: Reports No Symptoms
Abdomen/GI: Reports No Symptoms
Physical Exam
-
HEENT: Oxygen (NC)
Respiratory: Negative Wheezes
Cardiac: Regular Rhythm and S1/S2; Negative Murmur or Rub
GI: Soft, Nontender and Nondistended
Musculoskeletal: No Edema
Skin: Warm
Neuro: Awake, Alert, Oriented and Nonfocal/Grossly Intact
Psych: Calm
--- NOTE | 2024-05-27 15:35 | W.PN.CARDCBS ---
Addendum entered and electronically signed by Joseph Danielson MD 05/27/24 17:36:
Patient seen, interviewed and examined by me.
Well-appearing, no acute distress
Regular rate and rhythm, tachycardic with normal S1 and S2, no S3 no S4. There is a grade 1/6 apical holosystolic murmur and no rubs. PMI is normally placed.
Lungs are clear to auscultation bilaterally without wheezes rales or rhonchi.
Abdomen soft nontender nondistended with normoactive bowel sounds
Extremities show trace pretibial edema bilaterally no clubbing or cyanosis.
Neurologic exam is grossly nonfocal.
Electrocardiogram from May 26, 2024 reviewed/interpreted by me finds atrial flutter with variable AV conduction and ventricular rate of 109 bpm.
There is an EKG from May 05, 2024 reviewed/interpreted by me finds atrial fibrillation with rapid ventricular rate and heart rate of 130 bpm.
I met with the patient and we had a long discussion regarding management options of his recurrent atrial fibrillation and atrial flutter, recurrent and symptomatic despite antiarrhythmic drug therapy with amiodarone as well as clinical scenario
complicated by GI bleeding from gastric ulcer. Recurrent atrial arrhythmias have been associated with decompensated heart failure with preserved ejection fraction.
We reviewed consideration for EP study and ablation where I outlined PVI.
For paroxysmal atrial fibrillation catheter-based ablation is successful at eliminating symptomatic paroxysmal atrial fibrillation in up to 70- 80% of patients and patients with persistent atrial fibrillation in upwards of 55-60%. In patients with
paroxysmal atrial fibrillation, atrial fibrillation burden can be reduced greater than 98% as has been evidenced by continuous cardiac rhythm monitoring. Catheter ablation has been shown to delay the progression from paroxysmal atrial fibrillation
to persistent atrial fibrillation more effectively than antiarrhythmic drug therapy. Many trials have shown that catheter ablation is superior to medical therapy and freedom from atrial fibrillation and with respect to improvement in quality of
life.
On occasion there is need for repeat procedures. If a repeat procedure is required and cause for recurrence of atrial fibrillation is pulmonary vein reconnection alone, likelihood of success is upwards of 90%. However if multiple mechanisms for
atrial fibrillation recurrence exist and/or atypical atrial flutter/atrial tachycardias are present, success rate is less. Risks/benefits discussed. Procedure detailed, including need for transseptal puncture.
The procedure carries an approximate 5% risk of complications with overall low risk of major complications including but not limited to stroke, pulmonary vein stenosis, phrenic nerve injury, cardiac tamponade and other major vascular complications
including complications of catheter insertion sites. There is approximately 0.3% risk of potentially catastrophic complications during pulmonary vein isolation including esophageal injury and . There is radiation exposure. General anesthesia
is used.
He tells me he understands, all of his questions has been answered. He wishes to proceed with EP study and ablation.
I outlined that this will likely take place in a couple of weeks. I expect that he will require continued inpatient treatment for management of his decompensated heart failure and for rate control of his atrial arrhythmia. We would then plan for
EP study and ablation in a couple of weeks. I will contact my office to find a suitable date for him.
Original Note:
Today's Communication / Plan
-
continue IV lasix
continue toprol, amio, eliquis
echo in AM
working on expedited ablation with EP
Impression / Plan
-
Primary Manager Integration: Initially seen by Dr. Willis
Assessment:
Presentation with orthopnea, MARX
Acute HFpEF
Acute hypoxic respiratory failure, requiring bipap on admission
Atrial flutter, rate controlled
Recent admission to 05/05-05/16/24 for new paroxysmal Afib, HFpEF, GI bleed with gastric ulcers/anemia
BPH
Obesity
BPH
Suspected ADRIANNA
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
Transesophageal echo 05/07/2024 with EF 55 to 60%. Normal RV. Mild MR. Mild TR with PA pressure 24 mmHg
Plan:
-Patient with recent admission to [place] 05/05 - 05/16/2024 for PAF, heart failure, GI bleed with gastric ulcer/anemia presented back to [place] with 48 hours of significant dyspnea on exertion/orthopnea.
-Initially required BiPAP in ER, able to be weaned to supplemental O2. continue to wean as able
-Continue IV lasix 40mg BID. will require daily dosing upon DC, was not discharged on lasix last admission
-CHF education
-ZIYAD from 05/07 as above. will check echo in AM
-currently remains in aflutter with adequate HR control. continue toprol 50mg BID, amiodarone 200mg BID. QTc stable by EKG 05/26
-continue eliquis. denies recurrence of bleeding since last admission. hgb 13 on 05/27
-discussed importance of OP sleep study, weight loss
-working to arrange for expedited ablation with EP
Progress Note - Manager Integration
Subjective
Date of Service: May 27, 2024
reports breathing improving and with good urine output overnight
Objective
Labs:
05/27/24 09:25
05/27/24 09:02
Labs
Hgb 13.0 g/dL (13.0-18.0) 05/27/24 09:25
Hct 38.5 % (39.0-52.0) L 05/27/24 09:25
Plt Count 10^3/uL (130-400) 05/27/24 09:25
PT 16.6 Sec (11.4-14.6) H 05/26/24 03:24
INR 1.32 05/26/24 03:24
Sodium 137 mmol/L (135-145) 05/27/24 09:02
Potassium 4.3 mmol/L (3.5-5.1) 05/27/24 09:02
BUN 16 mg/dl (9-20) 05/27/24 09:02
Creatinine 0.9 mg/dL (0.7-1.3) 05/27/24 09:02
Glucose 101 mg/dl (70-99) H 05/27/24 09:02
Troponins
05/26/24 05/26/24 05/26/24
03:24 10:55 18:18
Troponin I < 0.012 < 0.012 < 0.012
Vital Signs and I&O:
Vital Signs
Temp Pulse Resp BP Pulse Ox
98 F 103 21 109/77 96
05/27/24 11:05 05/27/24 10:00 05/27/24 10:00 05/27/24 10:00 05/27/24 10:00
Vital Signs
Temp Pulse Resp BP Pulse Ox
98 F 103 21 109/77 96
05/27/24 11:05 05/27/24 10:00 05/27/24 10:00 05/27/24 10:00 05/27/24 10:00
Intake & Output
05/25/24 05/26/24 05/27/24 05/28/24
07:59 07:59 07:59 07:59
Intake Total 240 / 240 340 / 340
Output Total 750 / 750 1680 / 1680 900 / 900
Balance -750 / -750 -1440 / -1440 -560 / -560
Physical Exam
Physical Exam
GEN: No distress, awake, alert, oriented x3. sitting in chair. on supp O2
HEENT: supple, anicteric, mmm, eomi
LUNGS: Few crackles at B/L bases, no wheezes
CV: Irreg, S1/S2, no murmur
ABD: soft, BS+, NT/ND
EXT: No cyanosis, clubbing, edema
NEURO: Gross non-focal
SKIN: Warm, pink, dry. No rash
[2024-05-27] MEDS: PROSCAR 5 MG PO (17:35)
[2024-05-27] MEDS: FLOMAX 0.8 MG PO (17:35)
[2024-05-27] MEDS: ProAmatine 5 MG PO (20:05)
[2024-05-27] MEDS: TOPROL XL PO (20:06)
--- NOTE | 2024-05-27 21:22 | PTCARENOTE ---
Received pt at change of shift. Trial pt on RA. Pulse ox 90% but pt states he was starting to feel lightheaded. Put pt back on 2L NC. BP 83/57 MAP 68. Notified JEWELRY MAKING INSTRUCTOR. 1x dose midodrine ordered and administered (see JUN). BP now 102/81 MAP 89.
Pt states no change. Pulse ox 92% on 2L. Resting in bed with call zimmer in reach.
[2024-05-27] MEDS: PROTONIX 40 MG PO (22:19)
[2024-05-28] VITALS (15 sets, daily range): BP systolic 96–130; BP diastolic 64–83; PULSE 74; O2SAT 95–96; BMI 33.4
[2024-05-28 04:21] LABS: Hematocrit 34.9 % (39.0-52.0); Hemoglobin 11.7 g/dL (13.0-18.0); Mean Corp Hgb Conc. 33.5 g/dL (33.0-37.0); Mean Corpuscular Volume 92.3 fL (80.0-94.0); Mean Platelet Volume 10.1 fL (7.4-10.4); Platelet Count 259 10^3/uL (130-400); Red Blood Cell Count 3.78 10^6/uL (4.70-6.10); Red Cell Dist. Width 13.8 % (11.5-14.5); White Blood Cell Count 9.7 10^3/uL (4.8-10.8)
[2024-05-28 04:46] LABS: Blood Urea Nitrogen 20 mg/dl (9-20); Calcium 9.3 mg/dl (8.4-10.2); Carbon Dioxide 35 mmol/L (22-30); Chloride 91 mmol/L (98-107); Estimated Creatinine Clearance 100 ml/min; Glucose 99 mg/dl (70-99); Potassium 4.1 mmol/L (3.5-5.1); Sodium 133 mmol/L (135-145); eGFR > 60.00
[2024-05-28] MEDS: ELIQUIS 5 MG PO ×2 (08:16→20:08)
[2024-05-28] MEDS: PACERONE 200 MG PO ×2 (08:17→20:08)
[2024-05-28] MEDS: LASIX 40 MG IV ×2 (08:17→17:31)
[2024-05-28] MEDS: TOPROL XL 50 MG PO ×2 (08:17→20:09)
[2024-05-28] MEDS: FLUSH (NSS) 2 FLUSH IV (08:18)
--- NOTE | 2024-05-28 08:28 | W.PN.CARDCBS ---
Addendum entered and electronically signed by Sangita Danielson MD 05/28/24 13:05:
I saw and examined the patient.
The Retread Builder's note was reviewed and I agree with the note.
Comment: Exam is difficult but likely remains volume overloaded. He converted From atrial flutter to sinus rhythm. EKGs reviewed and stable.
We discussed atrial arrhythmias which include atrial flutter and also atrial fibrillation.
Plan for ablation June 10 electively as outpatient.
Continue diuresis for now. Watch labs.
As an outpatient will need sleep apnea testing.
Continue to follow electrolytes and telemetry.
Original Note:
Today's Communication / Plan
-
continue IV lasix
wean supp O2
continue toprol, amio
echo today
suspected ADRIANNA - needs OP sleep study
expedited ablation as EP schedule allows
Impression / Plan
-
Primary Personal Lines Underwriter: Initially seen by Dr. Willis
Assessment:
Presentation with orthopnea, MARX
Acute HFpEF
Acute hypoxic respiratory failure, requiring bipap on admission
Atrial flutter, rate controlled
Recent admission to 05/05-05/16/24 for new paroxysmal Afib, HFpEF, GI bleed with gastric ulcers/anemia
BPH
Obesity
BPH
Suspected ADRIANNA
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
Transesophageal echo 05/07/2024 with EF 55 to 60%. Normal RV. Mild MR. Mild TR with PA pressure 24 mmHg
Plan:
-Patient with recent admission to [facility] 05/05 - 05/16/2024 for PAF, heart failure, GI bleed with gastric ulcer/anemia presented back to [facility] with 48 hours of significant dyspnea on exertion/orthopnea.
-Initially required BiPAP in ER, able to be weaned to supplemental O2. continue to wean as able
-Continue IV lasix 40mg BID. weights trending down if accurate. Cr stable. will require daily dosing upon DC, was not discharged on lasix last admission
-CHF education
-ZIYAD from 05/07 as above. for echo today
-currently remains in aflutter with adequate HR control, HRs ~100BPM. continue toprol 50mg BID, amiodarone 200mg BID. unable to uptitrate BB due to hypotension
-continue eliquis. denies recurrence of bleeding since last admission. hgb 11.7 on 05/28
-discussed importance of OP sleep study and weight loss as suspected to have sleep apnea (noted to have desats at night)
-working to arrange for expedited ablation with EP
-d/w nursing
Progress Note - Personal Lines Underwriter
Subjective
Date of Service: May 28, 2024
reports breathing ok. not sleeping well
Objective
Labs:
05/28/24 03:46
05/28/24 03:46
Labs
Hgb 11.7 g/dL (13.0-18.0) L 05/28/24 03:46
Hct 34.9 % (39.0-52.0) L 05/28/24 03:46
Plt Count 259 10^3/uL (130-400) 05/28/24 03:46
PT 16.6 Sec (11.4-14.6) H 05/26/24 03:24
INR 1.32 05/26/24 03:24
Sodium 133 mmol/L (135-145) L 05/28/24 03:46
Potassium 4.1 mmol/L (3.5-5.1) 05/28/24 03:46
BUN 20 mg/dl (9-20) 05/28/24 03:46
Creatinine 1.0 mg/dL (0.7-1.3) 05/28/24 03:46
Glucose 99 mg/dl (70-99) 05/28/24 03:46
Troponins
05/26/24 05/26/24 05/26/24
03:24 10:55 18:18
Troponin I < 0.012 < 0.012 < 0.012
Vital Signs and I&O:
Vital Signs
Temp Pulse Resp BP Pulse Ox
98.1 F 107 11 101/70 93
05/28/24 07:00 05/28/24 08:00 05/28/24 08:00 05/28/24 08:00 05/28/24 08:00
Vital Signs
Temp Pulse Resp BP Pulse Ox
98.1 F 107 11 101/70 93
05/28/24 07:00 05/28/24 08:00 05/28/24 08:00 05/28/24 08:00 05/28/24 08:00
Intake & Output
05/26/24 05/27/24 05/28/24 05/29/24
07:59 07:59 07:59 07:59
Intake Total 240 / 240 580 / 580
Output Total 750 / 750 1680 / 1680 2950 / 2950
Balance -750 / -750 -1440 / -1440 -2370 / -2370
Physical Exam
Physical Exam
GEN: No distress, awake, alert, oriented x3. on supp O2
HEENT: supple, anicteric, mmm, eomi
LUNGS: Few crackles at B/L bases, no wheezes
CV: Irreg, S1/S2, no murmur
ABD: soft, BS+, NT/ND
EXT: No cyanosis, clubbing, edema
NEURO: Gross non-focal
SKIN: Warm, pink, dry. No rash
--- NOTE | 2024-05-28 10:59 | CM ---
Patient with Hx recent admission for PAF, HF, GIB with Dx HF, A flutter. Plan expedited ablation as EP schedule allows. O2 2L. Receiving IV Lasix, PO Amio. Per nursing; A/O, assist of 1 for mobility.
Attempted to meet with patient who was sleeping. CM familiar with this patient from his prior admission.
Spoke with patient's son Azar;
the patient resides with his Arlene in a 2 story house with 1-2 MONSERRAT.
He was independent in ADLs and ambulation using his RW.
Son expressed concern that his father has only been sleeping about 45 mins at home, he was unsure if his father had sleep apnea ---> message forwarded to Dr Jerez.
DME - RW
Current with [facility]
No prior SNF.
PCP - Shannon Giraldo
Pharmacy - [facility] [address]
Plan watch for home O2 needs.
Plan probable home with resumption [facility].
--- NOTE | 2024-05-28 11:50 | PTCARENOTE ---
Converted to NSR, EKG performed- providers aware.
--- NOTE | 2024-05-28 13:58 | W.PN.HOSP.TC ---
Today's Communication/Plan
-
will need OP sleep study
wean off o2
continue diuretics
monitor on tele
Assessment / Plan
Assessment / Plan
Acute hypoxic respiratory failure
-on BiPAP in ER
-CXR showing pulmonary edema
-weaned off on NC
Diastolic HF exacerbation
-weight is up to 136kg from 133 kg on discharge earlier in the month
-Probnp surprisingly lower at ~ 500 in comparison to 1450 on 05/05.
-ZIYAD on 05/07 showing EF 55-60%
-maintain on IV lasix 40mg BID
-f/u weight/cr
Aflutter/fib
-Patient switched to normal sinus rhythm spontaneously today
-Cardio considering early ablation
-failed CV x2 last visit
-maintain on amiodarone/toprol and eliquis for now
BPH
-continue on finasteride/flomax
GERD
-continue pantoprazole
Presumed sleep apnea
-Patient not able to rest more than an hour or 2 in the night
-Patient will require outpatient sleep study,
-Was meant to follow with Dr. Douglas office although get admitted
DVT PPX - Eliquis
Full code
Care plan discussed with cardiology PA
Total time spent : 52 mins
I personally saw and examined the patient.
I have reviewed all diagnostic interpretations and treatment plans as written.
Time includes patient management by me, time spent at the patients bedside, time to review lab and imaging results, discussing patient care, documentation in the medical record, and time spent with the family or caregiver and discussing care plan
with RN/Consultants.
Anticipated Discharge: 24 - 48 hours
Subjective/Interval History
-
Date of Service: May 28, 2024
Subjective feeling better
Remains on oxygen through nasal cannula 2 L
Reported sleep disturbances
No other reported problems overnight
Objective Data
-
Labs:
Laboratory Results
05/28/24
03:46
WBC 9.7
Hgb 11.7 L
Hct 34.9 L
Plt Count 259
Sodium 133 L
Potassium 4.1
Chloride 91 L
Carbon Dioxide 35 H
BUN 20
Creatinine 1.0
Glucose 99
Calcium 9.3
Vital Signs:
Vital Signs
Temp Pulse Resp BP Pulse Ox
98.3 F 70 20 96/77 94
05/28/24 11:00 05/28/24 12:00 05/28/24 12:00 05/28/24 12:00 05/28/24 12:00
I&O
05/27/24 05/28/24 05/29/24
06:59 06:59 06:59
Intake Total 240 / 240 580 / 580
Output Total 1430 / 1430 3200 / 3200
Balance -1190 / -1190 -2620 / -2620
Review of Systems
-
Respiratory: Reports No Symptoms
Cardiac: Reports No Symptoms
Abdomen/GI: Reports No Symptoms
Physical Exam
-
HEENT: Oxygen (NC)
Respiratory: Negative Wheezes
Cardiac: Regular Rhythm and S1/S2; Negative Murmur or Rub
GI: Soft, Nontender and Nondistended
Musculoskeletal: No Edema
Skin: Warm
Neuro: Awake, Alert, Oriented and Nonfocal/Grossly Intact
Psych: Calm
[2024-05-28] MEDS: PROSCAR 5 MG PO (17:30)
[2024-05-28] MEDS: FLOMAX 0.8 MG PO (17:30)
--- NOTE | 2024-05-28 18:21 | PTCARENOTE ---
Remains in NSR on tele. Failed O2 wean- 88-89% on RAIR 93-95% on 2L. Ambulated in halls today - pox improved during that time. Encouraged to increase activity. Education provided- videos ordered - will watch.
[2024-05-28] MEDS: ATIVAN 0.5 MG PO (22:58)
[2024-05-28] MEDS: PROTONIX 40 MG PO (22:58)
[2024-05-29] VITALS (13 sets, daily range): BP systolic 92–138; BP diastolic 49–88; BMI 32.8
--- NOTE | 2024-05-29 04:06 | PTCARENOTE ---
Pt PRN Ativan given to help with anxiety of spo2 study and hospital stay. Pt appears to be tolerating well, respiration even unlabored. SPO2 96% 2L NC. Pt had no complaints as of now. Call bel within reach.
[2024-05-29 06:19] LABS: Hematocrit 36.6 % (39.0-52.0); Hemoglobin 11.9 g/dL (13.0-18.0); Mean Corp Hgb Conc. 32.5 g/dL (33.0-37.0); Mean Corpuscular Hgb 30.1 pg (27.0-31.0); Mean Corpuscular Volume 92.4 fL (80.0-94.0); Mean Platelet Volume 9.5 fL (7.4-10.4); Platelet Count 256 10^3/uL (130-400); Red Blood Cell Count 3.96 10^6/uL (4.70-6.10); Red Cell Dist. Width 13.6 % (11.5-14.5); White Blood Cell Count 9.2 10^3/uL (4.8-10.8)
[2024-05-29 06:43] LABS: Blood Urea Nitrogen 24 mg/dl (9-20); Calcium 9.3 mg/dl (8.4-10.2); Carbon Dioxide 40 mmol/L (22-30); Chloride 89 mmol/L (98-107); Estimated Creatinine Clearance 99 ml/min; Glucose 114 mg/dl (70-99); Potassium 4.1 mmol/L (3.5-5.1); Sodium 133 mmol/L (135-145); eGFR > 60.00
[2024-05-29] MEDS: LASIX 40 MG IV ×2 (08:43→16:59)
[2024-05-29] MEDS: PACERONE 200 MG PO ×2 (08:44→19:49)
[2024-05-29] MEDS: ELIQUIS 5 MG PO ×2 (08:44→19:49)
[2024-05-29] MEDS: TOPROL XL 50 MG PO ×2 (08:44→19:48)
--- NOTE | 2024-05-29 08:51 | W.PN.CARDCBS ---
Addendum entered and electronically signed by Jovon Oropeza DO 05/29/24 11:18:
I saw and examined the patient.
The Fur Cutter's note was reviewed and I agree with the note.
Comment:
Patient seen and examined. Reporting overall improvement in breathing. Denies any chest pain, shortness of breath, edema, or weakness.
GEN: No distress, awake, alert, oriented x3. Off O2 support, SpO2 87% on room air during examination
HEENT: supple, anicteric, mmm, eomi
LUNGS: Few crackles at B/L bases, no wheezes
CV: Reg, S1/S2, no murmur
ABD: soft, BS+, NT/ND
EXT: No cyanosis, clubbing, edema
NEURO: Gross non-focal
SKIN: Warm, pink, dry. No rash
Telemetry demonstrates sinus rhythm
A/P as below
Patient remains volume overloaded based on SpO2, physical examination. Continue IV diuresis with plan to transition to oral diuresis in 24-48 hours. Goal for euvolemia prior to discharge given recent admission for heart failure and difficult to
control atrial arrhythmia
Strict intake and output, daily weights
Echocardiogram today
Outpatient sleep study
Tentative ablation 06/10/2024
Original Note:
Today's Communication / Plan
-
Continue IV Lasix
Echo today
In sinus
Outpatient sleep study
Ablation scheduled 06/10
Impression / Plan
-
Primary High School Science Tutor: Initially seen by Dr. Willis
Assessment:
Presentation with orthopnea, MARX
Acute HFpEF
Acute hypoxic respiratory failure, requiring bipap on admission
Atrial flutter, rate controlled
Recent admission to 05/05-05/16/24 for new paroxysmal Afib, HFpEF, GI bleed with gastric ulcers/anemia
BPH
Obesity
BPH
Suspected ADRIANNA
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
Transesophageal echo 05/07/2024 with EF 55 to 60%. Normal RV. Mild MR. Mild TR with PA pressure 24 mmHg
ECHO
Plan:
-Patient with recent admission to [facility] 05/05 - 05/16/2024 for PAF, heart failure, GI bleed with gastric ulcer/anemia presented back to [facility] with 48 hours of significant dyspnea on exertion/orthopnea.
-Initially required BiPAP in ER, able to be weaned to supplemental O2. continue to wean as able
-Continues with good response to IV Lasix. Weight continues to trend down, unclear dry weight. Creatinine stable at 1. will require daily dosing upon DC, was not discharged on lasix last admission
-CHF education
-ZIYAD from 05/07 as above. for echo today
-converted to SR yesterday afternoon, remains in SR upon review of tele. continue toprol 50mg BID, amiodarone 200mg BID. unable to uptitrate BB due to hypotension
-continue eliquis. denies recurrence of bleeding since last admission. hgb 11.9 on 05/29
-discussed importance of OP sleep study and weight loss as suspected to have sleep apnea (noted to have desats at night)
-planned for ablation 06/10/24 with EP, Dr. Huggins
-d/w nursing
Progress Note - High School Science Tutor
Subjective
Date of Service: May 29, 2024
Reports continues to improve. Eager for discharge
Objective
Labs:
05/29/24 06:03
05/29/24 06:03
Labs
Hgb 11.9 g/dL (13.0-18.0) L 05/29/24 06:03
Hct 36.6 % (39.0-52.0) L 05/29/24 06:03
Plt Count 256 10^3/uL (130-400) 05/29/24 06:03
PT 16.6 Sec (11.4-14.6) H 05/26/24 03:24
INR 1.32 05/26/24 03:24
Sodium 133 mmol/L (135-145) L 05/29/24 06:03
Potassium 4.1 mmol/L (3.5-5.1) 05/29/24 06:03
BUN 24 mg/dl (9-20) H 05/29/24 06:03
Creatinine 1.0 mg/dL (0.7-1.3) 05/29/24 06:03
Glucose 114 mg/dl (70-99) H 05/29/24 06:03
Troponins
05/26/24 05/26/24
10:55 18:18
Troponin I < 0.012 < 0.012
Vital Signs and I&O:
Vital Signs
Temp Pulse Resp BP Pulse Ox
98.7 F 65 18 110/75 90
05/29/24 07:42 05/29/24 08:44 05/29/24 06:16 05/29/24 08:44 05/29/24 06:00
Vital Signs
Temp Pulse Resp BP Pulse Ox
98.7 F 65 18 110/75 90
05/29/24 07:42 05/29/24 08:44 05/29/24 06:16 05/29/24 08:44 05/29/24 06:00
Intake & Output
05/27/24 05/28/24 05/29/24 05/30/24
07:59 07:59 07:59 07:59
Intake Total 240 / 240 580 / 580 180 / 180
Output Total 1680 / 1680 2950 / 2950 3125 / 3125
Balance -1440 / -1440 -2370 / -2370 -2945 / -2945
Physical Exam
Physical Exam
GEN: No distress, awake, alert, oriented x3. on supp O2
HEENT: supple, anicteric, mmm, eomi
LUNGS: Few crackles at B/L bases, no wheezes
CV: Reg, S1/S2, no murmur
ABD: soft, BS+, NT/ND
EXT: No cyanosis, clubbing, edema
NEURO: Gross non-focal
SKIN: Warm, pink, dry. No rash
[2024-05-29] MEDS: DIAMOX 250 MG PO ×2 (13:05→19:48)
--- NOTE | 2024-05-29 13:46 | CM ---
Addendum entered by Aida Martinez RN 05/29/24 14:11:
IMM completed.
Original Note:
Patient with Dx HF, spontaneously converted to NSR. O2 2L at 11:40 hours. Receiving IV Lasix. Nocturnal O2 sat study done. Home O2 Assessment done today. PT recommends outpatient therapy. OT recommends HH.
Messages with Dr Jerez; patient will need home O2 arrangement, hoping his O2 needs will come down, he will need to stay in hospital today but can work on O2 arrangment with weekend discharge plan.
Spoke with Attila Calderón; referral faxed except for O2 script which will need to be sent once final O2 needs are determined this weekend. Kaitlynn will deliver portable O2 to patient's hospital room today, and she will connect with weekend CM for O2
script. She will explain to the patient how long the portable tanks will last according to liter flow, as per patient questions.
Met with patient who agrees to home O2 through [facility], is aware portable tank will be delivered to his room today, and that weekend CM will finalize O2 request once his final O2 needs are determined. Patient is aware he may be able to discharge to
home in 1-2 days. He will not have anyone available to transport him home over the weekend and may need to have transport arranged.
Spoke with OFUZIA Seo; provided update possible d/c this weekend with home O2. He may be able to arrange Uber.
Plan follow up tomorrow for possible d/c with home O2 through [facility]- will need O2 script faxed once final O2 needs are known.
Plan assist patient with arranging transport home.
Plan home possibly 05/30 or 05/31 with home O2 and ride arranged.
--- NOTE | 2024-05-29 13:49 | PTCARENOTE ---
Rec'd pt this AM. remains MARX requiring O2 2L at rest and 4L with ambulation. CM setting up home O2 and visiting RN. Pt requiring more diuresis prior to d.c. per . Pt educated. agrees with plan.
--- NOTE | 2024-05-29 14:16 | PN.CDI ---
CDI
- -
CDI:
Physician Documentation Request
Admit Date: 05/26/24 06:35
Dear Doctor Solitario,
Clinical Indicators:
Patient admitted with acute HFpEF.
Fluid restriction- 1880 ml/day
Sodium level:
05/28/24
03:46
Sodium 133 L
Based on the above, could you clarify in the progress notes, the appropriate diagnosis, if significant, that supports the above abnormalities and additional evaluation, monitoring and/or treatment rendered:
Hyponatremia
Abnormal lab value, clinically insignificant
Other
Use of terms such as suspected, likely, concern for, or probable (associated with a specific diagnosis that is being evaluated, monitored, or treated as if it exists) are acceptable and can be coded in the inpatient setting, when documented at the
time of discharge.
Thank you,
Concepcion Chamberlain RN BSN
CDI Specialist
available via tiger text
Please use your independent medical judgment in providing your response.
--- NOTE | 2024-05-29 14:59 | W.PN.HOSP.TC ---
Today's Communication/Plan
-
continue iv diuresis
added diamox
wean off o2
f/u K/cr and weight
Assessment / Plan
Assessment / Plan
Acute hypoxic respiratory failure
-on BiPAP in ER
-CXR showing pulmonary edema
-weaned off on NC
Diastolic HF exacerbation
-weight is up to 136kg from 133 kg on discharge earlier in the month
-Probnp surprisingly lower at ~ 500 in comparison to 1450 on 05/05.
-ZIYAD on 05/07 showing EF 55-60%
-maintain on IV lasix 40mg BID
-f/u weight/cr - weight trending down 125kg, cr stable.
Metabolic alkalosis
-like contraction alkalosis
-Diamox ordered
Aflutter/fib
-Patient switched to normal sinus rhythm spontaneously on 05/28
-Cardio considering early ablation
-failed CV x2 last visit
-maintain on amiodarone/Toprol and Eliquis for now
BPH
-continue on finasteride/flomax
GERD
-continue pantoprazole
Presumed sleep apnea
-Patient not able to rest more than an hour or 2 in the night
-Nocturnal o2 test neg.
-Patient will require outpatient sleep study,
-Was meant to follow with Dr. Douglas office although get admitted
DVT PPX - Eliquis
Full code
Anticipated Discharge: 24 - 48 hours
Subjective/Interval History
-
Date of Service: May 29, 2024
resting comfortably in bed
remains on 4 L o2 through NC
remains in NSR
Objective Data
-
Labs:
Laboratory Results
05/29/24
06:03
WBC 9.2
Hgb 11.9 L
Hct 36.6 L
Plt Count 256
Sodium 133 L
Potassium 4.1
Chloride 89 L
Carbon Dioxide 40 H
BUN 24 H
Creatinine 1.0
Glucose 114 H
Calcium 9.3
Vital Signs:
Vital Signs
Temp Pulse Resp BP Pulse Ox
99 F 66 16 107/64 95
05/29/24 11:48 05/29/24 13:10 05/29/24 13:10 05/29/24 13:10 05/29/24 13:06
I&O
05/28/24 05/29/24 05/30/24
06:59 06:59 06:59
Intake Total 580 / 580 180 / 180
Output Total 3200 / 3200 2850 / 2850 1125 / 1125
Balance -2620 / -2620 -2670 / -2670 -1125 / -1125
Review of Systems
-
Respiratory: Reports No Symptoms
Cardiac: Reports No Symptoms
Abdomen/GI: Reports No Symptoms
Physical Exam
-
HEENT: Oxygen (NC)
Respiratory: Negative Wheezes
Cardiac: Regular Rhythm and S1/S2; Negative Murmur or Rub
GI: Soft, Nontender and Nondistended
Musculoskeletal: No Edema
Skin: Warm
Neuro: Awake, Alert, Oriented and Nonfocal/Grossly Intact
Psych: Calm
[2024-05-29] MEDS: PROSCAR 5 MG PO (17:13)
[2024-05-29] MEDS: FLOMAX 0.8 MG PO (17:13)
[2024-05-29] MEDS: PROTONIX 40 MG PO (19:48)
--- NOTE | 2024-05-29 22:11 | PTCARENOTE ---
Pt received resting in bed. AAOx3. Denies pain or discomfort. VSS. Afebrile. SR/BBB on CM. Continues on 2L NC pox 95%. Using urinal at bedside. Received HS meds. Brushed teeth and washed face for the night. Rest of assessment as documented. Call
zimmer remains within reach. Will continue to monitor.
[2024-05-30 00:09] VITALS: BP 91/61
[2024-05-30 02:00] VITALS: BP 103/69
[2024-05-30 04:00] VITALS: BP 102/66
[2024-05-30 04:05] VITALS: BMI 32.8
[2024-05-30 04:23] LABS: Hematocrit 37.9 % (39.0-52.0); Hemoglobin 12.5 g/dL (13.0-18.0); Mean Corpuscular Hgb 30.3 pg (27.0-31.0); Mean Corpuscular Volume 91.8 fL (80.0-94.0); Mean Platelet Volume 9.8 fL (7.4-10.4); Platelet Count 271 10^3/uL (130-400); Red Blood Cell Count 4.13 10^6/uL (4.70-6.10); Red Cell Dist. Width 13.4 % (11.5-14.5); White Blood Cell Count 10.5 10^3/uL (4.8-10.8)
[2024-05-30 04:48] LABS: Blood Urea Nitrogen 25 mg/dl (9-20); Calcium 9.6 mg/dl (8.4-10.2); Carbon Dioxide 37 mmol/L (22-30); Chloride 89 mmol/L (98-107); Estimated Creatinine Clearance 83 ml/min; Glucose 116 mg/dl (70-99); Potassium 3.9 mmol/L (3.5-5.1); Sodium 134 mmol/L (135-145); eGFR > 60.00
[2024-05-30 06:00] VITALS: BP 104/70
[2024-05-30 08:00] VITALS: BP 107/69
[2024-05-30] MEDS: ELIQUIS 5 MG PO (08:53)
[2024-05-30] MEDS: PACERONE 200 MG PO (08:53)
[2024-05-30] MEDS: LASIX 40 MG IV (08:53)
[2024-05-30] MEDS: TOPROL XL 50 MG PO (08:54)
[2024-05-30 10:00] VITALS: BP 106/73
--- NOTE | 2024-05-30 10:35 | W.PN.CARDCBS ---
Today's Communication / Plan
-
Transition to oral Lasix 40 mg daily
BMP 1 week
Continue amiodarone, beta-layton, Eliquis
Stable for DC from CV standpoint defer additional workup to primary service
Impression / Plan
-
Primary Helicopter Mechanic: Initially seen by Dr. Willis
Assessment:
Presentation with orthopnea, MARX
Acute HFpEF, improved
Acute hypoxic respiratory failure, requiring bipap on admission
Atrial flutter, rate controlled
Recent admission to 05/05-05/16/24 for new paroxysmal Afib, HFpEF, GI bleed with gastric ulcers/anemia
BPH
Obesity
BPH
Suspected ADRIANNA
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
Transesophageal echo 05/07/2024 with EF 55 to 60%. Normal RV. Mild MR. Mild TR with PA pressure 24 mmHg
ECHO 05/29/2024: EF 55 to 60%, normal LV RV function mild MR PASP 32 mmHg
Plan:
-Patient with recent admission to [facility] 05/05 - 05/16/2024 for PAF, heart failure, GI bleed with gastric ulcer/anemia presented back to [facility] with 48 hours of significant dyspnea on exertion/orthopnea.
-Initially required BiPAP in ER, able to be weaned to supplemental O2. continue to wean as able
-Continues with good response to IV Lasix. Weight continues to trend down, unclear dry weight. Creatinine stable at 1; uptrend to 1.2 with BUN rise appear euvolemic on exam. transition to oral diuretic 40 mg daily; if DC, BMP 1 week
-CHF education
-converted to SR yesterday afternoon, remains in SR upon review of tele. continue toprol 50mg BID, amiodarone 200mg BID. unable to uptitrate BB due to hypotension
-continue eliquis. denies recurrence of bleeding since last admission. hgb 11.9 on 05/29
-discussed importance of OP sleep study and weight loss as suspected to have sleep apnea (noted to have desats at night)
-planned for ablation 06/10/[address] Joseluis YEN
-d/w nursing
Progress Note - Helicopter Mechanic
Subjective
Date of Service: May 30, 2024
Patient seen and examined. No acute events overnight. Patient resting comfortably in bed. Patient notes mild shortness of breath and deoxygenation occurring however notes significant improvement overall. -2.7 L over last 24 hours
Objective
Labs:
05/30/24 04:10
05/30/24 04:10
Labs
Hgb 12.5 g/dL (13.0-18.0) L 05/30/24 04:10
Hct 37.9 % (39.0-52.0) L 05/30/24 04:10
Plt Count 271 10^3/uL (130-400) 05/30/24 04:10
PT 16.6 Sec (11.4-14.6) H 05/26/24 03:24
INR 1.32 05/26/24 03:24
Sodium 134 mmol/L (135-145) L 05/30/24 04:10
Potassium 3.9 mmol/L (3.5-5.1) 05/30/24 04:10
BUN 25 mg/dl (9-20) H 05/30/24 04:10
Creatinine 1.2 mg/dL (0.7-1.3) 05/30/24 04:10
Glucose 116 mg/dl (70-99) H 05/30/24 04:10
Vital Signs and I&O:
Vital Signs
Temp Pulse Resp BP Pulse Ox
98.1 F 63 14 107 98
05/30/24 07:34 05/30/24 08:54 05/30/24 06:00 05/30/24 08:54 05/30/24 09:28
Vital Signs
Temp Pulse Resp BP Pulse Ox
98.1 F 63 14 107 98
05/30/24 07:34 05/30/24 08:54 05/30/24 06:00 05/30/24 08:54 05/30/24 09:28
Intake & Output
05/28/24 05/29/24 05/30/24 05/31/24
06:59 06:59 06:59 06:59
Intake Total 580 / 580 180 / 180 200 / 200
Output Total 3200 / 3200 2850 / 2850 3175 / 3175 300 / 300
Balance -2620 / -2620 -2670 / -2670 -2975 / -2975 -300 / -300
Physical Exam
Physical Exam
GEN: No distress, awake, alert, oriented x3. on supp O2
HEENT: supple, anicteric, mmm, eomi
LUNGS: Clear to auscultation, mild global decrease sounds, no wheezes
CV: Reg, S1/S2, no murmur
ABD: soft, BS+, NT/ND
EXT: No cyanosis, clubbing, edema
NEURO: Gross non-focal
SKIN: Warm, pink, dry. No rash
--- NOTE | 2024-05-30 11:03 | W.PN.HOSP.TC ---
Addendum entered and electronically signed by Phillip Jerez MD 05/31/24 07:53:
Add on to diagnosis list:
Hyponatremia
Original Note:
Today's Communication/Plan
-
d/c home
Assessment / Plan
Assessment / Plan
Acute hypoxic respiratory failure
-on BiPAP in ER
-CXR showing pulmonary edema
-o2 requirement stabilized at 2L
Diastolic HF exacerbation
-weight is up to 136kg from 133 kg on discharge earlier in the month
-Probnp surprisingly lower at ~ 500 in comparison to 1450 on 05/05.
-ZIYAD on 05/07 showing EF 55-60%
-f/u weight/cr - weight trending down 125kg, cr stable.
-IV lasix to be changed to oral 40mg/d , f/u BMP script provided
Metabolic alkalosis
-like contraction alkalosis
-discontinue further diamox
Aflutter/fib
-Patient switched to normal sinus rhythm spontaneously on 05/28
-Cardio considering early ablation
-failed CV x2 last visit
-maintain on amiodarone/Toprol and Eliquis for now
BPH
-continue on finasteride/flomax
GERD
-continue pantoprazole
Possible COPD
-despite diuresis patient remains hypoxic
-plan to f/u in pulm office and will benefit with PFT
Presumed sleep apnea
-Patient not able to rest more than an hour or 2 in the night
-Nocturnal o2 test neg.
-Patient will require outpatient sleep study,
-Was meant to follow with Dr. Douglas office although get admitted
DVT PPX - Eliquis
Full code
Patient is in need of oxygen on exertion due to pulse oximetry of 85% on room air at rest; 87% on 3L nasal cannula with exertion.
Patient was placed on 4L O2 via nasal cannula with saturation of 95%. Oxygen will help to improve hypoxemia.
Patient is mobile within the home. Diuretics therapy has been discussed and is ineffective in treating hypoxemia-related symptoms.
Oxygen will improve the patient's symptoms.
More than 30 minutes spent in discharge including
Final examination of the patient
Summarizing hospital stay
Instructions for continuing care to all relevant caregivers
Preparation of discharge records, prescriptions, and referral forms
Total time spent (in minutes): 39 mins
Anticipated Discharge: Today
Subjective/Interval History
-
Date of Service: May 30, 2024
feeling better
on 2L o2
Objective Data
-
Labs:
Laboratory Results
05/30/24
04:10
WBC 10.5
Hgb 12.5 L
Hct 37.9 L
Plt Count 271
Sodium 134 L
Potassium 3.9
Chloride 89 L
Carbon Dioxide 37 H
BUN 25 H
Creatinine 1.2
Glucose 116 H
Calcium 9.6
Vital Signs:
Vital Signs
Temp Pulse Resp BP Pulse Ox
98.1 F 63 14 107/69 95
05/30/24 07:34 05/30/24 08:54 05/30/24 06:00 05/30/24 08:54 05/30/24 09:42
I&O
05/29/24 05/30/24 05/31/24
06:59 06:59 06:59
Intake Total 180 / 180 200 / 200
Output Total 2850 / 2850 3175 / 3175 300 / 300
Balance -2670 / -2670 -2975 / -2975 -300 / -300
Review of Systems
-
Respiratory: Reports No Symptoms
Cardiac: Reports No Symptoms
Abdomen/GI: Reports No Symptoms
Physical Exam
-
HEENT: Oxygen (NC 2L)
Respiratory: Negative Wheezes
Cardiac: Regular Rhythm and S1/S2; Negative Murmur or Rub
GI: Soft, Nontender and Nondistended
Musculoskeletal: No Edema
Skin: Warm
Neuro: Awake, Alert, Oriented and Nonfocal/Grossly Intact
Psych: Calm
--- NOTE | 2024-05-30 11:27 | CM ---
Addendum entered by Kate Lin 05/30/24 12:33:
met with patient before discharge
IMM benefit explained; form signed @ 1230
Home Oxygen evaluation results from today, 05/30/2024 faxed to [facility]; liaison confirmed receipt
Addendum entered by Kate Lin 05/30/24 11:32:
CM scheduled transport with [employer]; scheduled for 1230 picker/puller
Original Note:
Plan: Discharge to home today with home oxygen; portable tank delivered to hospital yesterday
CM faxed Oxygen order and Hospitalist Progress note to vendor's liaison ([facility]); vendor liaison reported that home Oxygen evaluation needed to be repeated since oxygen order was changed to 2 Liters. Attending notified
--- NOTE | 2024-05-30 12:41 | PTCARENOTE ---
Pt rec'd d/c orders - assisted with getting dressed. IV removed and d/c instructions reviewed. Pt going home on O2 - tank already received and had Pt contact O2 provider to have Concentrator sent to house. CM notified to have ride setup. Tech
assisted Pt to pickup area via wheel chair. D/c'd to home.
--- NOTE | 2024-05-31 15:21 | W.DCSUMMARY ---
Discharge Summary
Discharge Data
Date of Admission: 05/26/24
Date of Discharge: 05/30/24
-
Pending Results: No
Hospital Course
Discharging Physician : Dr Phillip Jerez
Disposition : To home
Primary care physician : Unknown
Principal Discharge diagnosis :
Acute on chronic diastolic congestive heart failure
Acute hypoxic aspiratory failure
Metabolic alkalosis from diuretics
Possible chronic obstructive pulmonary disease
Paroxysmal atrial fibrillation
Chronic Discharge diagnosis :
Gastroesophageal reflux disease
Benign prostatic hyperplasia
Hospital Course :
Patient is a 69-year-old male with past medical history as mentioned above came to ER with new onset of exertional dyspnea. Patient was treated with Lasix therapy on previous admission and was discharged off of it. Patient was noted to having
worsening leg swelling and orthopnea and came to ER for further evaluation. In ER patient required to be placed on BiPAP. X-ray showing increased vascular markings consistent with interstitial pulmonary edema. Patient was started on IV diuretic
therapy and cardiology was consulted for further help. Patient weight was noted to be elevated from baseline approximately 3 kg. Patient had appropriate response over the next few days with weight downtrending to 125 kg at discharge. Patient
oxygen requirement came down as well although unable to be completely be taken off. At discharge patient require home oxygen arrangement. Of note patient also had problem with a flutter/fibrillation for which patient underwent cardioversion on
previous visit. There was a repeat discussion for early ablation although patient converted to sinus rhythm spontaneously with volume optimization. Patient to follow-up with cardiology in office for further management.
Patient also was felt to have component of sleep apnea/COPD and need to follow-up with pulmonology in office.
Important imaging findings :
None
Procedure findings :
None
Discharge Plan
-
Patient Disposition: Home (Routine Discharge)
Discharge Diagnosis/Procedures: Diastolic hf exacerbation, Acute hypoxic resp insufficiency
Condition: Fair
Diet: Low Sodium and 2 Gram Sodium
Activity: As tolerated
Driving Restrictions: No driving for 24 hours
Bathing Restrictions: OK to Shower
Instructions: *DCA Heart Failure Instructions
Referrals:
Shannon Giraldo PA-C [Family Provider] - in one week
Cruz Willis MD [Active] - in one to two weeks
El Leon MD [Active] - in two to four weeks
Prescriptions:
New
metoprolol succinate 50 mg Tablet Extended Release 24 Hr
50 mg PO BID Qty: 60 2RF
furosemide [Lasix] 40 mg tablet
40 mg PO DAILY Qty: 30 2RF
Continued
tamsulosin [Flomax] 0.4 mg Capsule
0.8 mg PO QPM
finasteride 5 mg Tablet
5 mg PO QPM
Eliquis 5 mg Tablet
5 mg PO BID 30 Days Qty: 60 0RF
amiodarone 200 mg tablet
200 mg PO BID 30 Days Qty: 60 0RF
omeprazole 40 mg capsule,delayed release(DR/EC)
40 mg PO HS
Discontinued
metoprolol succinate 25 mg Tablet Extended Release 24 Hr
25 mg PO BID 30 Days Qty: 60 0RF
Discharge Orders:
Discharge Patient (As Directed); Ordered 05/30/24
Ordered By: Phillip Jerez
Discharge Date and Time
Discharge Date/Time: 05/30/24 12:57
Print Language: CZECH
--- NOTE | 2024-06-01 11:48 | W.HF.CON ---
Heart Failure
- LV Function
Left ventricular function study result: LV Ejection fraction >/= 50%
Ejection Fraction Percentage: 55-60
- ARNI
Patient already on ARNI: No
Heart Failure ARNI Not Indicated: LV Ejection Fraction >/= 40%
- ACEI/ARB
Patient already on ACEI/ARB: No
Heart Failure ACEI/ARB Not Indicated: LV Ejection Fraction > 40%
- Beta Katie
Patient already on Evidence Based Beta Katie: Yes
- Mineralocorticord Receptor Antagonist
Patient already on MRA: No
Heart Failure MRA Not Indicated: LV Ejection Fraction > 40%
- SGLT-2 Inhibitor
Patient already on SGLT-2 Inhibitor: No
Heart Failure SGLT-2 Inhibitor Not Indicated: LV Ejection Fraction >40%
- Afib Anticoagulation
Patient already on Anticoagulation for Afib: Yes
- NYHA CHF Classification
NYHA CHF Classification Level: Class III - Symptoms w/ min exertion, interferes w/ nml daily activity
- ACC/AHA Stage
ACC/AHA Stage: Stage C: Symptomatic Heart Failure
== END 2024-05-30 12:57 | disposition home or self-care (01) | DRG 291 ==
LOC: IMU 06:35
PROVIDERS: ADMITTING PHYSICIAN Internal Medicine; ATTENDING PHYSICIAN Hospitalist; EMERGENCY PHYSICIAN Student in an Organized Health Care Education/Training Program; FAMILY PHYSICIAN Physician Assistant; OTHER PHYSICIAN Internal Medicine Cardiovascular Disease
PROC: 5A09357 Assistance with Respiratory Ventilation, Less than 24 Consecutive Hours, Continuous Positive Airway Pressure (ICD-10-PCS; 2024-05-26)
DX: I11.0 Hypertensive heart disease with heart failure (principal); I50.33 Acute on chronic diastolic (congestive) heart failure; J96.21 Acute and chronic respiratory failure with hypoxia; J96.22 Acute and chronic respiratory failure with hypercapnia; I48.19 Other persistent atrial fibrillation; I48.92 Unspecified atrial flutter; E87.3 Alkalosis; E87.1 Hypo-osmolality and hyponatremia; J44.9 Chronic obstructive pulmonary disease, unspecified; G47.33 Obstructive sleep apnea (adult) (pediatric); K21.9 Gastro-esophageal reflux disease without esophagitis; N40.0 Benign prostatic hyperplasia without lower urinary tract symptoms; E66.9 Obesity, unspecified; Z96.642 Presence of left artificial hip joint; Z68.32 Body mass index [BMI] 32.0-32.9, adult; Z79.01 Long term (current) use of anticoagulants; Z87.891 Personal history of nicotine dependence; Z87.11 Personal history of peptic ulcer disease; Z11.52 Encounter for screening for COVID-19; Z82.49 Family history of ischemic heart disease and other diseases of the circulatory system
CPT/HCPCS: 71045; 80048; 80053; 82805; 83880; 84484; 85025; 85027; 85379; 85610; 87502; 87811; 93005; 93306; 94762; 96374; 97162; 97166; 99285

== ENCOUNTER → 2024-06-05 15:49 | Outpatient (REF) | payer MEDICARE, BC, SELFPAY ==
[2024-06-05 16:07] LABS: Hematocrit 36.4 % (39.0-52.0); Hemoglobin 11.5 g/dL (13.0-18.0); Mean Corp Hgb Conc. 31.6 g/dL (33.0-37.0); Mean Corpuscular Hgb 29.9 pg (27.0-31.0); Mean Corpuscular Volume 94.5 fL (80.0-94.0); Mean Platelet Volume 10.7 fL (7.4-10.4); Platelet Count 210 10^3/uL (130-400); Red Blood Cell Count 3.85 10^6/uL (4.70-6.10); Red Cell Dist. Width 13.8 % (11.5-14.5); White Blood Cell Count 7.9 10^3/uL (4.8-10.8)
[2024-06-05 16:28] LABS: ALT (SGPT) 21 U/L (0-50); AST (SGOT) 20 U/L (17-59); Alkaline Phosphatase 51 U/L (38-126); Blood Urea Nitrogen 22 mg/dl (9-20); Calcium 9.5 mg/dl (8.4-10.2); Carbon Dioxide 33 mmol/L (22-30); Chloride 97 mmol/L (98-107); Glucose 113 mg/dl (70-99); Potassium 4.5 mmol/L (3.5-5.1); Sodium 137 mmol/L (135-145); Total Bilirubin 1.1 mg/dl (0.2-1.3); Total Protein 6.6 g/dl (6.3-8.2); eGFR > 60.00
[2024-06-05 16:37] LABS: Total Iron Binding Capacity 281 ug/dl (261-462)
== END ==
LOC: CLAB 15:49
PROVIDERS: ATTENDING PHYSICIAN Physician Assistant; OTHER PHYSICIAN Internal Medicine Cardiovascular Disease
DX: Z09 Encounter for follow-up examination after completed treatment for conditions other than malignant neoplasm (principal); I50.33 Acute on chronic diastolic (congestive) heart failure; I48.0 Paroxysmal atrial fibrillation; Z87.19 Personal history of other diseases of the digestive system
CPT/HCPCS: 36415; 80053; 82728; 83550; 85027

== ENCOUNTER 2024-06-10 10:03 | Day surgery (SDC) | payer MEDICARE, BC, SELFPAY ==
[2024-06-02 09:24] VITALS: BMI 33.7
[2024-06-10] VITALS (13 sets, daily range): BP systolic 104–139; BP diastolic 63–80; BMI 33.7
[2024-06-10] MEDS: TYLENOL 1000 MG PO (11:18)
--- NOTE | 2024-06-10 14:16 | ITS.CL.ABL ---
Miner Operator - Ablation
Ablation
Procedure Report:
ELECTROPHYSIOLOGIC STUDY AND POSSIBLE ABLATION
DATE: June 10, 2024
Primary Care Provider: Dr Allison
INDICATION:
Symptomatic Atrial Fibrillation.
Persistent
HISTORY: See H and P.
Symptomatic AF, poorly controlled with attempted medical therapy
Atrial fibrillation and atrial flutter, recurrent and symptomatic despite antiarrhythmic drug therapy with amiodarone as well as clinical scenario complicated by GI bleeding from gastric ulcer. Recurrent atrial arrhythmias have been associated with
decompensated heart failure with preserved ejection fraction.
HAS-BLED: 2
Age
H/O Bleeding
CHADSVASc: 2
CHF, NYHA Class 3, HFpEF
Age
Comorbid conditions include obesity and suspected obstructive sleep apnea as well as former long-term smoker with suspected underlying COPD.
PRESENTING RHYTHM: SR
HISTORY: See H and P.
Symptomatic AF, poorly controlled with attempted medical therapy.
ANTIARRHYTHMIC DRUG: amiodarone, currently on 200 mg twice daily
ANTICOAGULATION: Eliquis 5 mg twice daily
'TIME-OUT': called and confirmed.
SEDATION/ANESTHESIA: provided via the anesthesia department using general anesthesia.
PROCEDURE:
Ultrasound Guidance with real-time visualization of needle insertion and vessel patency performed by nc for femoral venous Vascular Access. Images were taken and saved for the patient's permanent record. Imaging findings typical femoral venous
anatomy. Direct visualization of needle puncture into the femoral vein was observed and recorded.
A decapolar CS catheter was placed within the CS for mapping and pacing.
The intracardiac ultrasound catheter was positioned in the RA for continuous intracardiac ultrasound imaging.
Heparin bolus and infusion to target ACT at 300 -350 seconds was administered. Transseptal puncture was performed. This entailed advancing a sheath with dilator into the superior vena cava and withdrawing both (monitoring intracardiac ultrasound,
fluoroscopy and tip pressure) with the tip oriented toward the atrial septum. The fossa ovalis was engaged (indicated by sudden displacement of the sheath tip as well as tenting of the fossa seen on intracardiac ultrasound).
The Farapulse transseptal system was used. Left atrial catheter position was confirmed by echocardiographic imaging and fluoroscopy followed by RF delivery using the [employer] system resulting in successful LA access with pressure monitoring
demonstrating LA pressure waveforms (LA mean pressure 16 mm Hg). The sheath was advanced over the dilator and positioned in the left atrium.
The Parks Grid multipolar mapping catheter was initially positioned through the transseptal sheath for high density mapping.
Geometry and voltage mapping was performed using the Parks multipolar grid catheter. Ensite-X was utilized for three-dimensional electroanatomical mapping.
A 3-D map was created using Ensite-X in Voxel mode. A 3-D reconstructed CT image was compared to the 3-D Navex map to assist in anatomic evaluation, mapping and ablation.
The NewsBreak PFA catheter and system was used for cardiac ablation. Catheter positioning was guided and confirmed using both I.C.E. and fluoroscopy.
PV isolation approach was used to electrically isolate each PV ostia (LSPV, LIPV, RSPV, RIPV).
Additional energy applications/additional ablation set was required to accomplish wide area circumferential ablation around each of the pulmonary vein sets and additionally ablation to accomplish LA posterior wall ablation.
Remapping with the Parks multipolar grid catheter found that all PVPs were eliminated at each vein demonstrating entrance block. Also pacing from the multipolar mapping catheter around the the circumference of the ostia was performed at 10 ma and
2.0 msec output to assess for exit block. This demonstrated electrical isolation at each of the pulmonary vein ostia (LSPV, LIPV, RSPV, RIPV). There is also entrance and exit block at the LA posterior wall.
Programmed electrostimulation (burst atrial pacing as well as delivery of atrial decremental extrastimuli to atrial ERP) failed to induce any sustained arrhythmias.
I.C.E. :
Pre-Ablation Post-Ablation
LVEF: 55 % 55 %
WMA: none none
Pericardial effusion: none none
COMPLICATIONS:
none
SUMMARY:
- Mapping and ablation to isolate the PVs
- Additional AF ablation set after PVI.
- 3-D Electroanatomical Mapping
- Intracardiac Ultrasound
- Ultrasound guidance for vascular access
Post ablation, I discussed today's findings and results with the patient's daughter, Danish
RECOMMENDATIONS:
- Observe in monitored bed.
- Maintain oral anticoagulation.
- Reduce amiodarone to 200 mg daily
- Office visit with me in 4 months.
Copy to: Dr Allison
[2024-06-10 15:03] LABS: ACT-LR - POC 273 Seconds (116-155)
[2024-06-10 15:17] LABS: ACT-LR - POC 303 Seconds (116-155)
[2024-06-10] MEDS: LASIX 40 MG IV (17:05)
[2024-06-10] MEDS: PROSCAR 5 MG PO (18:27)
[2024-06-10] MEDS: FLOMAX 0.8 MG PO (18:27)
[2024-06-10] MEDS: ANESTHETIC LOZENGE 1 LOZENGE PO (18:29)
--- NOTE | 2024-06-10 20:25 | PTCARENOTE ---
Rec'd pt at change of shift. Pt AAO*3, VSS, and SR on TELE monitor. PT post PVI ablation with R femoral vein site. Figure eight dressing CDI, and removed as ordered at 20:00. New dressing applied and pt aware of activity restrictions. Pt
reported mild headache and PRN Tylenol given as ordered. Pt updated on plan of care and denies having any questions or concerns. Pt resting with call zimmer in reach. See flowchart and mar for full pt assessment and care.
[2024-06-10] MEDS: ELIQUIS 5 MG PO (20:31)
[2024-06-10] MEDS: TOPROL XL 50 MG PO (20:31)
[2024-06-10] MEDS: TYLENOL 650 MG PO (20:32)
[2024-06-10] MEDS: PROTONIX 40 MG PO (22:58)
[2024-06-11 03:22] VITALS: BP 108/65
[2024-06-11 03:24] VITALS: BP 108/65
[2024-06-11 03:39] VITALS: BMI 34.0
[2024-06-11] MEDS: ANESTHETIC LOZENGE 1 LOZENGE PO (03:49)
[2024-06-11 03:55] LABS: Hematocrit 35.4 % (39.0-52.0); Hemoglobin 11.3 g/dL (13.0-18.0); Mean Corp Hgb Conc. 31.9 g/dL (33.0-37.0); Mean Corpuscular Hgb 29.7 pg (27.0-31.0); Mean Corpuscular Volume 92.9 fL (80.0-94.0); Mean Platelet Volume 10.7 fL (7.4-10.4); Platelet Count 218 10^3/uL (130-400); Red Blood Cell Count 3.81 10^6/uL (4.70-6.10); Red Cell Dist. Width 13.5 % (11.5-14.5); White Blood Cell Count 9.8 10^3/uL (4.8-10.8)
[2024-06-11 04:38] LABS: Blood Urea Nitrogen 25 mg/dl (9-20); Calcium 9.2 mg/dl (8.4-10.2); Carbon Dioxide 31 mmol/L (22-30); Chloride 97 mmol/L (98-107); Estimated Creatinine Clearance 123 ml/min; Glucose 156 mg/dl (70-99); Potassium 4.8 mmol/L (3.5-5.1); Sodium 137 mmol/L (135-145); eGFR > 60.00
[2024-06-11 08:09] VITALS: BP 108/69
[2024-06-11] MEDS: ELIQUIS 5 MG PO (08:14)
[2024-06-11] MEDS: LASIX 40 MG PO (08:15)
[2024-06-11] MEDS: TOPROL XL 50 MG PO (08:15)
[2024-06-11] MEDS: PACERONE 200 MG PO (08:15)
--- NOTE | 2024-06-11 08:37 | CM ---
Reviewed chart. Met with Mr. Jenkins to review discharge plans. He states he is feeling well and maybe able to go home soon. He states prior to admission he resides with his spouse in a two story home with three steps to enter. He states he has a
full flight of steps to get to bedroom/full bathroom. He states he has a powder room on the first floor. He states prior to admission he was independent with ambulation and adls. He states he has home 02 at two liters. He states he has a
concentrator and portable 02 at home. He can not remember the name of the [employer] company. He states he is current with [facility]. He states he would like the service to continue. Telephone call to [facility] to update them and
to resume services. He states he has a prescription plan and uses [facility]. The discharge plan is to return home with his spouse, home 02 and resumption of [facility] when medically stable.
--- NOTE | 2024-06-11 08:44 | W.PN.CARDCBS ---
Addendum entered and electronically signed by Joseph Danielson MD 06/11/24 11:24:
Patient seen, interviewed and examined by me.
He tells me that he feels well this morning. He tells me that his breathing is back to his baseline.
He experienced no chest pain or palpitations overnight and into this morning.
Well-appearing, no acute distress
Regular rate and rhythm with normal S1 and S2, no S3 no S4. There is a grade 1/6 apical holosystolic murmur and no rubs. PMI is normally placed.
Lungs are clear to auscultation bilaterally without wheezes rales or rhonchi.
Abdomen soft nontender nondistended with normoactive bowel sounds
Extremities show trace pretibial edema bilaterally no clubbing or cyanosis.
Neurologic exam is grossly nonfocal.
Review of telemetry finds he is maintaining sinus rhythm since his ablation.
Will reduce amiodarone from 200 mg twice daily to 200 mg once daily.
Maintain oral anticoagulation for atrial fibrillation related thromboembolic risk reduction, Eliquis 5 mg twice daily
He will need to continue close follow-up with his primary reinspector regarding his COPD and suspected obstructive sleep apnea. He is scheduled for a sleep study this month.
I reviewed discharge instructions with him and all of his questions have been answered.
Stable for discharge to home today.
Original Note:
Today's Communication / Plan
-
post ablation resume OAC
decrease amio to 200 daily
duoneb and oupt f/u Pulm
Impression / Plan
-
PCP: Shannon Giraldo PA-C
CDY: Cruz Monterroso MD
Impression:
Symptomatic Afib/Aflutter
acute on chronic HFpEF 55-60%
post PVI 06/10/24
suspected COPD on home O2 3-4Lnc
BPH
Recent admission to 05/05-05/16/24 for new paroxysmal Afib, HFpEF, GI bleed with gastric ulcers/anemia
Obesity
Suspected ADRIANNA
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
Plan:
post ablation had acute hypoxia most likely secondary to anesthesia
groin stable
tele SR
LA pressure 16, treated with IV lasix 40mg -995
remains on 5L this am, weaning to keep sat >90%
Was started on inhaler by PCP last week Trelegy
will give one time duoneb this am for cough and upper airway wheeze
He has outpt f/u apt with Pulm next month
OOB, I.S., C&DB
resume PO lasix
continue OAC Eliquis
Decrease Amiodarone to 200mg daily, continue metoprolol succinate 50mb bid
BPH continue tamsulosin, finasteride, no difficultly with UOP
Activity restrictions reviewed
f/u DCA in 1 mo
home this afternoon if back to baseline O2 requirements
Progress Note - Cardiology Consultant
Subjective
Date of Service: June 11, 2024
denies cp, non productive cough
Objective
Labs:
06/11/24 03:37
06/11/24 03:37
Labs
Hgb 11.3 g/dL (13.0-18.0) L 06/11/24 03:37
Hct 35.4 % (39.0-52.0) L 06/11/24 03:37
Plt Count 218 10^3/uL (130-400) 06/11/24 03:37
Sodium 137 mmol/L (135-145) 06/11/24 03:37
Potassium 4.8 mmol/L (3.5-5.1) 06/11/24 03:37
BUN 25 mg/dl (9-20) H 06/11/24 03:37
Creatinine 0.8 mg/dL (0.7-1.3) 06/11/24 03:37
Glucose 156 mg/dl (70-99) H 06/11/24 03:37
Vital Signs and I&O:
Vital Signs
Temp Pulse Resp BP Pulse Ox
97.7 F 66 18 108/65 96
06/11/24 08:34 06/11/24 05:00 06/11/24 08:34 06/11/24 03:24 06/11/24 08:34
Vital Signs
Temp Pulse Resp BP Pulse Ox
97.7 F 66 18 108/65 96
06/11/24 08:34 06/11/24 05:00 06/11/24 08:34 06/11/24 03:24 06/11/24 08:34
Intake & Output
06/09/24 06/10/24 06/11/24 06/12/24
06:59 06:59 06:59 06:59
Intake Total 580 / 580
Output Total 1575 / 1575
Balance -995 / -995
Physical Exam
Physical Exam
NAD, AOX3
S1, S2, RRR
diminished t/o, faint upper airway wheeze, no rales, rhonchi
SNTND bsx4
R fem site c/d/i no HT, soft
--- NOTE | 2024-06-11 09:07 | PTCARENOTE ---
0745 Rec'd Pt A,A+Ox3, R femoral dsg D+I, denied pain. Pt on O2 at 5L/min. O2 sat 93% on 5L/min. O2 weaned to 4L/min, 93% on 4L. 0800 Rupinder Beth came to see Pt, she will order breathing treatment. Lungs decreased at bilat bases. Pt on PO Lasix, given.
0820 Pt O2 weaned to 3Lmin, he is now sitting up higher in bed. O2 sat 96% on 3L/min. 0900 O2 weaned down to 2L/min, currently O2 sat 97% on 2L.
[2024-06-11] MEDS: DUONEB 3 ML INH (09:34)
--- NOTE | 2024-06-11 11:02 | PTCARENOTE ---
Pt now on O2 at 1L/min, radha well, O2 sat 93%.
[2024-06-11 11:21] VITALS: BP 114/67
[2024-06-11] MEDS: FLUAD (65 yr+) 2024-2025 FORMULA 0.5 ML IM (12:14)
--- NOTE | 2024-06-11 12:24 | PTCARENOTE ---
Pt's O2 sat now 88% on RA, Pt placed back on O2 at 1L/min. He has portable O2 tank with him for when he is D/C'd. Pt given influenza vaccine as ordered.
--- NOTE | 2024-06-11 13:26 | W.DS.TRANS ---
DC Summary - Application Support Developer
-
Discharge Instructions:
Sleep Apnea Risk Intermediate
Discharge Diagnosis/Procedures AFib, s/p ablation
Diet Low Cholesterol
Driving Restrictions No driving for 24 hours
Instructions:
Stand-Alone Forms: DC Instructions- Cath/EP Lab
Changes to Home Medications: Yes
Discharge Medications:
DC Medications w/original date entered in [email or web address]
finasteride 5 mg tablet 5 mg PO QPM Urinary Issue 05/05/24
tamsulosin 0.4 mg capsule (Flomax) 0.8 mg PO QPM Urinary Issue 05/05/24
apixaban 5 mg tablet (Eliquis) 5 mg PO BID Blood clot prevention/tx 1 month #60 tabs 05/16/24
omeprazole 40 mg capsule,delayed release 40 mg PO HS Gastrointestinal issue 05/26/24
furosemide 40 mg tablet (Lasix) 40 mg PO DAILY Heart Failure #30 tabs 05/30/24
amiodarone 200 mg tablet 200 mg PO DAILY #90 tabs 06/11/24
fluticasone fur. 100 mcg-umeclid 62.5 mcg-vilant 25 mcg inhalat.powder (Trelegy Ellipta) 1 inh inhalation DAILY #28 ea 06/11/24
metoprolol succinate 50 mg tablet,extended release 24 hr 50 mg PO BID #60 tabs 06/11/24
Home Medication Changes
decrease amiodarone to 200mg daily
Pending Results: No
== END 2024-06-11 14:03 | disposition home or self-care (01) ==
LOC: CATH 10:03
PROVIDERS: Nurse Practitioner Adult Health; ATTENDING PHYSICIAN Internal Medicine Cardiovascular Disease; FAMILY PHYSICIAN Physician Assistant
DX: I48.0 Paroxysmal atrial fibrillation (principal); I48.92 Unspecified atrial flutter; I50.33 Acute on chronic diastolic (congestive) heart failure; J44.9 Chronic obstructive pulmonary disease, unspecified; N40.0 Benign prostatic hyperplasia without lower urinary tract symptoms; D64.9 Anemia, unspecified; K25.4 Chronic or unspecified gastric ulcer with hemorrhage; Z87.891 Personal history of nicotine dependence; E66.9 Obesity, unspecified; I11.0 Hypertensive heart disease with heart failure; I50.32 Chronic diastolic (congestive) heart failure; Z79.01 Long term (current) use of anticoagulants; R09.02 Hypoxemia; Z79.899 Other long term (current) drug therapy
CPT/HCPCS: C1732; C1894; C1730; C1892; C1759; 76937; 80048; 83735; 85027; 85347; 86850; 86900; 86901; 90662; 93005; 93656; 93657; 94640; C1733; C1766; G0008

== ENCOUNTER → 2024-07-12 07:24 | Outpatient (REF) | payer MEDICARE, BC, SELFPAY | LOC: PAVMRI 07:24 | PROVIDERS: ATTENDING PHYSICIAN Specialist; FAMILY PHYSICIAN Physician Assistant | DX: M25.561 Pain in right knee (principal) | CPT/HCPCS: 73721 ==

== ENCOUNTER 2024-07-23 06:07 | Day surgery (SDC) | payer MEDICARE, BC, SELFPAY ==
[2024-07-23] VITALS (9 sets, daily range): BP systolic 95–115; BP diastolic 63–75; BMI 33.1
[2024-07-23] MEDS: NORMOSOL-R/PLASMALYTE-A 1000 IV (11:28)
[2024-07-23] MEDS: TYLENOL 1000 MG PO (11:28)
[2024-07-23] MEDS: CELEBREX 200 MG PO (11:28)
== END 2024-07-23 15:48 | disposition home or self-care (01) ==
LOC: SDS 06:07
PROVIDERS: ATTENDING PHYSICIAN Specialist
DX: S83.271A Complex tear of lateral meniscus, current injury, right knee, initial encounter (principal); S83.241A Other tear of medial meniscus, current injury, right knee, initial encounter; X58.XXXA Exposure to other specified factors, initial encounter
CPT/HCPCS: 29880

== ENCOUNTER → 2024-07-23 10:44 | Outpatient (REF) | payer MEDICARE, BC, SELFPAY | LOC: DHSLP 10:44 | PROVIDERS: ATTENDING PHYSICIAN Internal Medicine Critical Care Medicine; FAMILY PHYSICIAN Physician Assistant | DX: G47.33 Obstructive sleep apnea (adult) (pediatric) (principal) | CPT/HCPCS: 95800 ==

== ENCOUNTER 2024-09-01 06:17 | Day surgery (SDC) | payer MEDICARE, BC, SELFPAY | END 2024-09-01 09:08 | disposition home or self-care (01) | LOC: GI 06:17 | PROVIDERS: ATTENDING PHYSICIAN Specialist | DX: K31.89 Other diseases of stomach and duodenum (principal); K25.0 Acute gastric ulcer with hemorrhage; Z80.0 Family history of malignant neoplasm of digestive organs; K29.00 Acute gastritis without bleeding | CPT/HCPCS: 43239; 88305; 88342 ==